=== PATIENT | female | born 1940 | race Caucasian/White ===

== ENCOUNTER 2016-09-01 10:41 | Inpatient (IN) | payer MEDICARE, BC ==
[~2016-09-01] VITALS: Ht 167.6 cm; Wt 69.5 kg
[~2016-09-01 10:41] MED LIST: ACET325C PO; ALPR0.5T6 PO; AMLO5TAB2 PO; ASPI325T70 PO; ASPI81TA2 PO; BUSP15TA PO; CARV6.252 PO; CYCL10TA2 PO; DOXY100C2 PO; DULO30CA43 PO; FLUO40CA2 PO; FOLI1TAB16 PO; FURO-68 PO; GABA-586 PO; HYDR-2762 PO; LEVO50TA5 PO; LISI40TA PO; LORA0.5T PO; LORA2ORA7 PO; MAGN2400 PO; MAGN400O4 PO; METF500T4 PO; MIRT15TA PO; MULT-658 PO; MULT9LIQ5 PO; NABU750T PO; NEOM28OI4 TP; OMEP40CA5 PO; OXYC-244 PO; OXYC10TA32 PO; OXYC1TAB7 PO; OXYC5CAP3 PO; PANT40TA5 PO; PERP1TAB3 PO; POLY17PO5 PO; POTA20TA12 PO; QUET100T PO; QUET50TA PO; SENN8.6T3 PO; SIMV80TA3 PO; TRAZ50TA15 PO; TRIA1TAB3 PO; [UNRECOGNIZED DRUG - CODE] PO; [UNRECOGNIZED DRUG - CODE] PO; [UNRECOGNIZED DRUG - CODE] TP; [UNRECOGNIZED DRUG - OTHER]; doxycycline; omeprazole
[2016-09-01] MEDS ORDERED: FENTANYL PF 100 MCG/2 ML VIAL. IV PRN ×2 (11:15→14:15)
[2016-09-01 11:47] LABS: BASO % 1 % (0-3); EOS % 2 % (0-3); HEMATOCRIT 31.7 % (36.0-47.0); HEMOGLOBIN 10.6 g/dL (12.0-15.5); LYMPH # 1.6 x10^3/uL (1.0-4.8); LYMPH % 23 % (24-48); MEAN CORPUSCULAR HEMOGLOBIN 31 pg (25-35); MEAN CORPUSCULAR HGB CONC 33 g/dL (31-37); MEAN CORPUSCULAR VOLUME 93 fL (79-100); MONO % 11 % (0-9); NEUT % 64 % (31-73); PLATELET COUNT 266 x10^3/uL (140-400); RED BLOOD COUNT 3.41 x10^6/uL (3.50-5.40); RED CELL DISTRIBUTION WIDTH 14.7 % (11.5-14.5); WHITE BLOOD COUNT 6.9 x10^3/uL (4.0-11.0)
[2016-09-01 11:48] LABS: CALCIUM 8.8 mg/dL (8.5-10.1); CREATININE 0.8 mg/dL (0.6-1.0); GFR 69.9; POTASSIUM 4.1 mmol/L (3.5-5.1)
[2016-09-01 12:06] LABS: BILIRUBIN,URINE NEGATIVE (NEG); GLUCOSE,URINE NEGATIVE (NEG); NITRITE,URINE NEGATIVE (NEG); PH,URINE 7.5; PROTEIN,URINE NEGATIVE (NEG-TRACE); UROBILINOGEN,URINE 0.2 mg/dL (0.2 mg/dL)
[2016-09-01 12:16] LABS: BACTERIA,URINE 0 /HPF (0-FEW); RBC,URINE 0 /HPF (0-2); SQUAMOUS EPITHELIAL CELL,UR OCC /LPF; WBC,URINE 0 /HPF (0-4)
--- NOTE | 2016-09-01 13:38 | RAD ---
AP view of the pelvis History: Bilateral hip pain. Cannot walk. Findings: Fusion of the left side lower lumbar spine is severe levoscoliosis. Surgical hardware is seen within the left iliac bone. Old healed fracture of the lateral aspect of the left iliac bone is seen. No acute fracture is evident. No diastases or osteolytic process is seen. IMPRESSION: No acute fracture.
[2016-09-01] MEDS ORDERED: ACETAMINOPHEN 325 MG TABLET. PO PRN ×2 (14:15→15:45)
[2016-09-01] MEDS ORDERED: ONDANSETRON PF 4 MG/2 ML VIAL. IV PRN ×2 (14:15→15:30)
--- NOTE | 2016-09-01 14:50 | ACF ---
Admission Forms Criteria URINARY COMPLICATIONS Clinical Indications for Inpatient Care (Place 'X' for any and all applicable criteria): Ongoing inpatient care may be indicated for urinary complications with ANY ONE of the following: [ ]I. Urinary tract infection requiring inpatient care as indicated by ANY ONE of the following(8)(19)(20): [ ]a) Severe symptoms (eg, high fever, severe pain) [ ]b) Vomiting or dehydration requiring ongoing inpatient care [ ]c) IV antibiotic needs that cannot be managed at lower level of care [ ]d) Hemodynamic instability [ ]e) Obstruction of collecting system by stone or tumor [X]II. Urinary retention requiring drainage or surgery (3)(4)(5)(17)(18) [ ]III. Renal failure (Use Renal Failure Criteria for further information.) [ ]IV. Oliguria(30) [ ]V. Post obstructive diuresis requiring close monitoring of urine output and intravenous compensation for excessive fluid losses(33) Extended stay beyond goal length of stay for primary condition may be needed until ALL of the following are present(3)(4)(5)(8): [ ]a) Renal function (creatinine) at baseline, or daily decreases in creatinine consistent with renal function return [ ]b) Voiding adequately or with urinary catheter or percutaneous suprapubic tube and management regimen in place that is performable at lower level of care. [ ]c) Urine output adequate [ ]d) Fever absent or resolving [ ]e) Infection absent or treatable at next level of care The original [employer] content created by [employer] has been revised. The portions of the content which have been revised are identified through the use of italic text or in bold, and [facility] has neither reviewed nor approved the modified material. All other unmodified content is copyright [employer] Please see references footnoted in the original [facility] edition 2016 Admission Criteria Met?: Yes BARNEY HARRIS Sep 01, 2016 14:50
--- NOTE | 2016-09-01 15:05 | PHYS DOC ---
Past Medical History Past Medical History: Anxiety, Bipolar, Constipation, Depression, Diabetes- Type II, GERD, High Cholesterol, Hypertension, Hypothyroid, Stroke, Other Additional Past Medical Histor: CHRONIC BACK PAIN, PYSCH HX Past Surgical History: Lumbar Laminectomy, Other Additional Past Surgical Histo: LEFT SHOULDER REPAIR, L hip repair-plate and screws Alcohol Use: None Drug Use: None Adult General Chief Complaint Chief Complaint: PAIN CONTROL HPI HPI Patient is a 76 year old female who presents with chronic pain & urinary retention. Patient is a poor historian, very difficult to obtain information regarding her complaints. She states that she has chronic left shoulder pain & bilateral hip pain, with previous surgeries for fractures to LUE & LLE. Denies recent fall or trauma, has taken 1 percocet today at her care home & states it did not help at all. She also states she has suprapubic abdominal pain with inability to urinate, unsure when she last urinated. Denies history of urinary retention. States she took an unknown antibiotic last week for UTI. She denies fevers/chills, nausea/vomiting, flank pain. She lives at [facility] & her PCP is Dr. Smallwood. Review of Systems Review of Systems Constitutional: Denies fever or chills Eyes: Denies change in visual acuity HENT: Denies nasal congestion or sore throat Respiratory: Denies cough or shortness of breath Cardiovascular: Denies chest pain or edema GI: Reports suprapubic abdominal pain, denies nausea, vomiting, bloody stools or diarrhea : Denies dysuria or hematuria, reports urinary retention Musculoskeletal: Reports joint pain Integument: Denies rash or skin lesions Neurologic: Denies headache, focal weakness or sensory changes Current Medications Current Medications Current Medications Medications (Trade) Dose Ordered Sig/Anne Start Time Stop Time Status Last Admin Dose Admin Fentanyl Citrate (Fentanyl 2ml Vial) 25 mcg PRN Q15MIN PRN 09/01/16 11:15 09/01/16 14:15 DC 09/01/16 11:49 25 MCG Allergies Allergies Allergies Coded Allergies Type Severity Reaction Last Updated Verified No Known Drug Allergies 04/29/14 No Physical Exam Physical Exam Constitutional: Well developed, well nourished, no acute distress, non-toxic appearance. HENT: Normocephalic, atraumatic, bilateral external ears normal, oropharynx moist, nose normal. Eyes: conjunctiva normal, no discharge. Neck: supple, no stridor. Cardiovascular: RRR, no murmurs, no edema. Lungs & Thorax: LCTAB, no wheezing, no respiratory distress. Abdomen: soft, nontender, nondistended. : villalobos catheter already placed by RN at time of my exam with > 500 mL output of clear yellow urine. Skin: Warm, dry, no erythema, no rash. Back: No CVA tenderness. Extremities: left shoulder no swelling/deformity, no focal tenderness with palpation, no elbow tenderness, radial pulse 2+, radial/median/ulnar nerve sensory & motor function intact, limited ROM secondary to pain at the shoulder. no hip swelling/deformity, mild generalized tenderness to bilateral hips, no knee tenderness, limited ROM to bilateral hips secondary to pain, dp/pt 2+ bilaterally, sensation intact to feet. Neurologic: Alert and oriented X 3, no focal deficits noted. Psychologic: Affect normal, judgement normal, mood normal. Current Patient Data Vital Signs Vital Signs Date Time Temp Pulse Resp B/P Pulse Ox O2 Delivery O2 Flow Rate FiO2 09/01/16 12:28 54 16 92 09/01/16 10:49 97.8 105/51 Room Air 97.8 Lab Values Laboratory Tests Test 09/01/16 11:25 09/01/16 11:54 White Blood Count 6.9x10^3/uL (4.0-11.0) Red Blood Count 3.41x10^6/uL (3.50-5.40) L Hemoglobin 10.6g/dL (12.0-15.5) L Hematocrit 31.7% (36.0-47.0) L Mean Corpuscular Volume 93fL (79-100) Mean Corpuscular Hemoglobin 31pg (25-35) Mean Corpuscular Hemoglobin Concent 33g/dL (31-37) Red Cell Distribution Width 14.7% (11.5-14.5) H Platelet Count 266x10^3/uL (140-400) Neutrophils (%) (Auto) 64% (31-73) Lymphocytes (%) (Auto) 23% (24-48) L Monocytes (%) (Auto) 11% (0-9) H Eosinophils (%) (Auto) 2% (0-3) Basophils (%) (Auto) 1% (0-3) Neutrophils # (Auto) 4.4x10^3uL (1.8-7.7) Lymphocytes # (Auto) 1.6x10^3/uL (1.0-4.8) Monocytes # (Auto) 0.7x10^3/uL (0.0-1.1) Eosinophils # (Auto) 0.1x10^3/uL (0.0-0.7) Basophils # (Auto) 0.0x10^3/uL (0.0-0.2) Sodium Level 129mmol/L (136-145) L Potassium Level 4.1mmol/L (3.5-5.1) Chloride Level 98mmol/L (98-107) Carbon Dioxide Level 26mmol/L (21-32) Anion Gap 5 (6-14) L Blood Urea Nitrogen 10mg/dL (7-20) Creatinine 0.8mg/dL (0.6-1.0) Estimated GFR (Cockcroft-Gault) 69.9 Glucose Level 111mg/dL (70-99) H Calcium Level 8.8mg/dL (8.5-10.1) Urine Collection Type Unknown Urine Color Yellow Urine Clarity Clear Urine pH 7.5 Urine Specific [place] <=1.005 Urine Protein Negativemg/dL (NEG-TRACE) Urine Glucose (UA) Negativemg/dL (NEG) Urine Ketones (Stick) Negativemg/dL (NEG) Urine Blood Negative (NEG) Urine Nitrite Negative (NEG) Urine Bilirubin Negative (NEG) Urine Urobilinogen Dipstick 0.2mg/dL (0.2 mg/dL) Urine Leukocyte Esterase Negative (NEG) Urine RBC 0/HPF (0-2) Urine WBC 0/HPF (0-4) Urine Squamous Epithelial Cells Occ/LPF Urine Bacteria 0/HPF (0-FEW) Laboratory Tests 09/01/16 11:25 Laboratory Tests 09/01/16 11:25 EKG EKG [] Radiology/Procedures Radiology/Procedures PROCEDURE: PELVIS AP view of the pelvis History: Bilateral hip pain. Cannot walk. Findings: Fusion of the left side lower lumbar spine is severe levoscoliosis. Surgical hardware is seen within the left iliac bone. Old healed fracture of the lateral aspect of the left iliac bone is seen. No acute fracture is evident. No diastases or osteolytic process is seen. IMPRESSION: No acute fracture. DICTATED and SIGNED BY: CLAIRE CAMARILLO MD DATE: 09/01/16 0019[] Course & Med Decision Making Course & Med Decision Making Pertinent Labs and Imaging studies reviewed. (See chart for details) Patient presents with acute urinary retention. RN placed a Villalobos catheter with greater than 500 mL of yellow urine output. Patient will much better and had no focal abdominal pain at time of my exam. UA is clear, no evidence of infection at this time. She received multiple doses of IV pain medication for pain, not significantly relieved. Primarily complaining of hip pain bilaterally with no evidence of fracture on x-ray. Agreed to admit to inpatient status for rehabilitation consult. Patient agrees with plan of care. Discussed with Dr. Palmer who agrees to admit to inpatient status, rehabilitation consult to Dr. Saravia , urology consult to Dr. Riggins. patient admitted in stable condition. [] Dragon Disclaimer Dragon Disclaimer This electronic medical record was generated, in whole or in part, using a voice recognition dictation system. Departure Departure Impression: Primary Impression: Lower extremity pain Additional Impressions: Acute urinary retention Anemia Disposition: ADMITTED INPATIENT Admitting Physician: Brian Palmer Condition: STABLE Problem Qualifiers EUGENIO GOMEZ MD Sep 01, 2016 15:05
[2016-09-01 15:15] VITALS: BP 130/48
--- NOTE | 2016-09-01 15:25 | PDOC1 ---
History and Physical Date of Admission Date of Admission 09/01/16 Identification/Chief Complaint Chief Complaint UTI? hip pain Problems: Source Source: Chart review, Patient History of Present Illness History of Present Illness HPI HPI Patient is a 76 year old female who presents with chronic pain & urinary retention. pt is a poor historian. She said SNF sent her here since she has UTI, but denies dysuria, frequency, urgency. She said SNF tried to get urine sample, but failed. She also has chronic bl hip pain and back pain, post back sx 4 times in the past. saying took percocet q6h prn in SNF and not help. She also states she has suprapubic abdominal pain with inability to urinate, unsure when she last urinated. States she took an unknown antibiotic last week for UTI. She denies fevers/chills, nausea/vomiting, flank pain. She lives at [facility] & her PCP is Dr. Smallwood. h/o CVA, with mild left side weakness, use a walker in SNF. Past Medical History Cardiovascular: HTN, Hyperlipidemia CENTRAL NERVOUS SYSTEM: CVA Endocrine: Diabetes, Hypothyroidism Past Surgical History Past Surgical History: Other Family History Family History: No Significant, Hypertension Social History Smoke: No ALCOHOL: none Drugs: Ecstasy Current Problem List Problem List Problems Medical Problems: (1) Lower extremity pain Status: Acute Current Medications Current Medications Current Medications Medications (Trade) Dose Ordered Sig/Anne Start Time Stop Time Status Last Admin Dose Admin Acetaminophen (Tylenol) 650 mg PRN Q4HRS PRN 09/01/16 14:15 09/02/16 14:14 Fentanyl Citrate (Fentanyl 2ml Vial) 50 mcg PRN Q1HR PRN 09/01/16 14:15 09/02/16 14:14 Ondansetron HCl (Zofran) 4 mg PRN Q8HRS PRN 09/01/16 14:15 09/02/16 14:14 Allergies Allergies Allergies Coded Allergies Type Severity Reaction Last Updated Verified No Known Drug Allergies 04/29/14 No ROS Review of System CONSTITUTIONAL: No fever or chills EYES: No recent changes SKIN: No rash or itching CARDIOVASCULAR: No chest pain, syncope, palpitations, or edema RESPIRATORY: No SOB or cough GASTROINTESTINAL: No nausea, vomiting or abdominal pain NEUROLOGICAL: No headaches or weakness ENDOCRINE: No cold or heat intolerance GENITOURINARY: No urgency or frequency of urination MUSCULOSKELETAL: No back pain or joint pain LYMPHATICS: No enlarged lymph nodes PSYCHIATRIC: No anxiety or depression Physical Exam Physical Exam GEN.: No apparent distress. Alert and oriented. HEENT: Head is normocephalic, atraumatic NECK: Supple. LUNGS: Clear to auscultation. HEART: RRR, S1, S2 present. Peripheral pulses intact ABDOMEN: Soft, nontender. Positive bowel sounds. EXTREMITIES: Without any cyanosis. NEUROLOGIC: Normal speech, normal tone PSYCHIATRIC: Normal affect, normal mood. SKIN: No ulcerations Vitals Vitals Vital Signs Date Time Temp Pulse Resp B/P Pulse Ox O2 Delivery O2 Flow Rate FiO2 09/01/16 13:28 64 16 94 09/01/16 10:49 97.8 51/41 Room Air 97.8 Labs Labs Laboratory Tests Test 09/01/16 11:25 09/01/16 11:54 White Blood Count 6.9x10^3/uL (4.0-11.0) Red Blood Count 3.41x10^6/uL (3.50-5.40) Hemoglobin 10.6g/dL (12.0-15.5) Hematocrit 31.7% (36.0-47.0) Mean Corpuscular Volume 93fL (79-100) Mean Corpuscular Hemoglobin 31pg (25-35) Mean Corpuscular Hemoglobin Concent 33g/dL (31-37) Red Cell Distribution Width 14.7% (11.5-14.5) Platelet Count 266x10^3/uL (140-400) Neutrophils (%) (Auto) 64% (31-73) Lymphocytes (%) (Auto) 23% (24-48) Monocytes (%) (Auto) 11% (0-9) Eosinophils (%) (Auto) 2% (0-3) Basophils (%) (Auto) 1% (0-3) Neutrophils # (Auto) 4.4x10^3uL (1.8-7.7) Lymphocytes # (Auto) 1.6x10^3/uL (1.0-4.8) Monocytes # (Auto) 0.7x10^3/uL (0.0-1.1) Eosinophils # (Auto) 0.1x10^3/uL (0.0-0.7) Basophils # (Auto) 0.0x10^3/uL (0.0-0.2) Sodium Level 129mmol/L (136-145) Potassium Level 4.1mmol/L (3.5-5.1) Chloride Level 98mmol/L (98-107) Carbon Dioxide Level 26mmol/L (21-32) Anion Gap 5 (6-14) Blood Urea Nitrogen 10mg/dL (7-20) Creatinine 0.8mg/dL (0.6-1.0) Estimated GFR (Cockcroft-Gault) 69.9 Glucose Level 111mg/dL (70-99) Calcium Level 8.8mg/dL (8.5-10.1) Urine Collection Type Unknown Urine Color Yellow Urine Clarity Clear Urine pH 7.5 Urine Specific [place] <=1.005 Urine Protein Negativemg/dL (NEG-TRACE) Urine Glucose (UA) Negativemg/dL (NEG) Urine Ketones (Stick) Negativemg/dL (NEG) Urine Blood Negative (NEG) Urine Nitrite Negative (NEG) Urine Bilirubin Negative (NEG) Urine Urobilinogen Dipstick 0.2mg/dL (0.2 mg/dL) Urine Leukocyte Esterase Negative (NEG) Urine RBC 0/HPF (0-2) Urine WBC 0/HPF (0-4) Urine Squamous Epithelial Cells Occ/LPF Urine Bacteria 0/HPF (0-FEW) Laboratory Tests Test 09/01/16 11:25 09/01/16 11:54 White Blood Count 6.9x10^3/uL (4.0-11.0) Red Blood Count 3.41x10^6/uL (3.50-5.40) Hemoglobin 10.6g/dL (12.0-15.5) Hematocrit 31.7% (36.0-47.0) Mean Corpuscular Volume 93fL (79-100) Mean Corpuscular Hemoglobin 31pg (25-35) Mean Corpuscular Hemoglobin Concent 33g/dL (31-37) Red Cell Distribution Width 14.7% (11.5-14.5) Platelet Count 266x10^3/uL (140-400) Neutrophils (%) (Auto) 64% (31-73) Lymphocytes (%) (Auto) 23% (24-48) Monocytes (%) (Auto) 11% (0-9) Eosinophils (%) (Auto) 2% (0-3) Basophils (%) (Auto) 1% (0-3) Neutrophils # (Auto) 4.4x10^3uL (1.8-7.7) Lymphocytes # (Auto) 1.6x10^3/uL (1.0-4.8) Monocytes # (Auto) 0.7x10^3/uL (0.0-1.1) Eosinophils # (Auto) 0.1x10^3/uL (0.0-0.7) Basophils # (Auto) 0.0x10^3/uL (0.0-0.2) Sodium Level 129mmol/L (136-145) Potassium Level 4.1mmol/L (3.5-5.1) Chloride Level 98mmol/L (98-107) Carbon Dioxide Level 26mmol/L (21-32) Anion Gap 5 (6-14) Blood Urea Nitrogen 10mg/dL (7-20) Creatinine 0.8mg/dL (0.6-1.0) Estimated GFR (Cockcroft-Gault) 69.9 Glucose Level 111mg/dL (70-99) Calcium Level 8.8mg/dL (8.5-10.1) Urine Collection Type Unknown Urine Color Yellow Urine Clarity Clear Urine pH 7.5 Urine Specific [place] <=1.005 Urine Protein Negativemg/dL (NEG-TRACE) Urine Glucose (UA) Negativemg/dL (NEG) Urine Ketones (Stick) Negativemg/dL (NEG) Urine Blood Negative (NEG) Urine Nitrite Negative (NEG) Urine Bilirubin Negative (NEG) Urine Urobilinogen Dipstick 0.2mg/dL (0.2 mg/dL) Urine Leukocyte Esterase Negative (NEG) Urine RBC 0/HPF (0-2) Urine WBC 0/HPF (0-4) Urine Squamous Epithelial Cells Occ/LPF Urine Bacteria 0/HPF (0-FEW) VTE Prophylaxis Ordered VTE Prophylaxis Devices: Yes VTE Pharmacological Prophylaxi: Yes Assessment/Plan Assessment/Plan 1. severe chronic back pain, bl hip pain 2h/o back sx 3. urinary urention 4. HTN 5. bipolar disorder 6. dm2, no meds 7. gerd 8. hld 9. h/o storke with mild left side weakness 10. from snf 11. hyponatremia 12. chronic normacytic anemia plan: 1. uro, dr. Kwon consult 2. MRI LUMBAR 3. cont home meds, hold amlodipine 4. ivf 5. villaolbos for now 6. cont pain control 7. dvt ppx ptot ADDY PAVON MD Sep 01, 2016 15:25
[2016-09-01] MEDS ORDERED: MAGNESIUM HYDROXIDE 2,400 MG/30 ML ORAL.SUSP. PO PRN ×2 (15:30→15:45)
[2016-09-01] MEDS ORDERED: LORAZEPAM INTENSOL 2 MG/ML ORAL.CONC. PO PRN (15:30)
[2016-09-01] MEDS ORDERED: IV NORMAL SALINE 1000ML BAG 1,000 ML IV ONE ×2 (15:30→21:00)
[2016-09-01] MEDS ORDERED: hydrALAZINE 20 MG/ML VIAL. IVP PRN (15:30)
[2016-09-01] MEDS ORDERED: ALPRAZOLAM 0.5 MG TABLET. PO PRN (15:30)
[2016-09-01] MEDS ORDERED: BISACODYL 5 MG TABLET.DR. PO PRN (15:30)
[2016-09-01] MEDS ORDERED: METHYL SALICYLATE/MENTHOL TOPICAL OINTMENT 29GM TUBE. TP PRN ×2 (16:00→16:06)
[2016-09-01] MEDS: QUEtiapine 25 MG TABLET. PO SCH (17:20)
[2016-09-01] MEDS: GABAPENTIN 300 MG CAPSULE. PO SCH ×2 (17:20→21:04)
[2016-09-01] MEDS: OXYCODONE/APAP 5/325 TABLET. PO PRN ×2 (17:20→23:56)
[2016-09-01] MEDS: CARVEDILOL 6.25 MG TABLET. PO SCH (17:20)
[2016-09-01 19:00] VITALS: BP 96/35
[2016-09-01] MEDS ORDERED: traZODone 50 MG TABLET. PO SCH (21:00)
[2016-09-01] MEDS: VANCOMYCIN 250 MG/5 ML ORAL SOLUTION. PO SCH ×2 (21:01→23:52)
[2016-09-01] MEDS: SENNOSIDES 8.6 MG TABLET PO SCH (21:02)
[2016-09-01] MEDS: MIRTAZAPINE 15 MG TABLET PO SCH (21:03)
[2016-09-01] MEDS: OXYCODONE ER 10 MG TAB.ER.12H. PO SCH (21:03)
[2016-09-01] MEDS: busPIRone 5 MG TABLET. PO SCH (21:03)
[2016-09-01] MEDS: QUEtiapine 100 MG TABLET. PO SCH (21:10)
[2016-09-01 23:01] VITALS: BP 88/37
[2016-09-01] MEDS: DULOXETINE HCL 30 MG CAPSULE.DR. PO SCH (23:48)
[2016-09-02] MEDS ORDERED: IV NORMAL SALINE 1000ML BAG 1,000 ML IV SCH (02:00)
[2016-09-02 03:00] VITALS: BP 135/52
[2016-09-02 05:33] LABS: BASO # 0.1 x10^3/uL (0.0-0.2); BASO % 1 % (0-3); EOS % 2 % (0-3); HEMATOCRIT 34.3 % (36.0-47.0); HEMOGLOBIN 11.1 g/dL (12.0-15.5); LYMPH # 1.9 x10^3/uL (1.0-4.8); LYMPH % 29 % (24-48); MEAN CORPUSCULAR HEMOGLOBIN 31 pg (25-35); MEAN CORPUSCULAR HGB CONC 32 g/dL (31-37); MEAN CORPUSCULAR VOLUME 94 fL (79-100); MONO % 13 % (0-9); NEUT % 56 % (31-73); PLATELET COUNT 270 x10^3/uL (140-400); RED BLOOD COUNT 3.63 x10^6/uL (3.50-5.40); RED CELL DISTRIBUTION WIDTH 14.8 % (11.5-14.5); WHITE BLOOD COUNT 6.5 x10^3/uL (4.0-11.0)
[2016-09-02 06:03] LABS: CALCIUM 8.6 mg/dL (8.5-10.1); CREATININE 1.1 mg/dL (0.6-1.0); GFR 48.4
[2016-09-02] MEDS: PANTOPRAZOLE 40 MG TABLET.DR. PO SCH (06:38)
[2016-09-02] MEDS: LEVOTHYROXINE 75 MCG TABLET PO SCH (06:38)
[2016-09-02 07:00] VITALS: BP 118/44
[2016-09-02] MEDS ORDERED: AMLODIPINE BESYLATE 5 MG TABLET. PO SCH (09:00)
[2016-09-02] MEDS ORDERED: LISINOPRIL 10 MG TABLET PO SCH (09:00)
[2016-09-02] MEDS: SENNOSIDES 8.6 MG TABLET PO SCH ×2 (09:00→20:39)
[2016-09-02] MEDS ORDERED: FOLIC ACID 1 MG TABLET. PO SCH (09:00)
[2016-09-02] MEDS: GABAPENTIN 300 MG CAPSULE. PO SCH ×3 (09:05→20:40)
[2016-09-02] MEDS: POLYETHYLENE GLYCOL 3350 17 GM PACKET. PO SCH (09:05)
[2016-09-02] MEDS: MULTIVITAMIN with MINERAL TABLET. PO SCH (09:07)
[2016-09-02] MEDS: QUEtiapine 25 MG TABLET. PO SCH ×3 (09:07→17:36)
[2016-09-02] MEDS: busPIRone 5 MG TABLET. PO SCH ×2 (09:07→20:39)
[2016-09-02] MEDS: ASPIRIN CHEWABLE 81 MG TABLET. PO SCH (09:07)
[2016-09-02] MEDS: CARVEDILOL 6.25 MG TABLET. PO SCH ×2 (09:08→17:37)
[2016-09-02] MEDS: OXYCODONE ER 10 MG TAB.ER.12H. PO SCH ×2 (09:08→20:40)
[2016-09-02 10:54] VITALS: BP 122/52
[2016-09-02] MEDS: IV NORMAL SALINE 1000ML BAG 1,000 ML IV SCH ×2 (10:59→20:42)
[2016-09-02] MEDS: OXYCODONE/APAP 5/325 TABLET. PO PRN ×2 (11:03→19:29)
--- NOTE | 2016-09-02 11:51 | PDOC ---
PROGRESS NOTES Chief Complaint Chief Complaint 1. severe chronic back pain, bl hip pain 2 h/o back sx 3. urinary retention 4. HTN 5. bipolar disorder 6. dm2, no meds 7. gerd 8. hld 9. h/o storke with mild left side weakness 10. from snf 11. hyponatremia 12. chronic normacytic anemia plan: 1. uro, dr. Kwon consult pending 2. MRI LUMBAR pending 3. cont home meds, hold amlodipine 4. ivf till tmr. dc lisinopril. only on coreg for now. BP ok for now 5. villalobos for now 6. cont pain control 7. dvt ppx ptot History of Present Illness History of Present Illness LOw bp OVERnight pain better with meds on villalobos Vitals Vitals Vital Signs Date Time Temp Pulse Resp B/P Pulse Ox O2 Delivery O2 Flow Rate FiO2 09/02/16 11:03 Room Air 09/02/16 10:54 97.5 64 18 122/52 93 97.5 Physical Exam General: Alert, Oriented X3, Cooperative Heart: Regular rate, Normal S1, Normal S2 Lungs: Clear, Other Abdomen: Normal bowel sounds, Soft Extremities: No clubbing, No cyanosis Skin: No rashes Labs LABS Laboratory Tests Test 09/01/16 11:54 09/02/16 05:15 Urine Collection Type Unknown Urine Color Yellow Urine Clarity Clear Urine pH 7.5 Urine Specific [place] <=1.005 Urine Protein Negativemg/dL (NEG-TRACE) Urine Glucose (UA) Negativemg/dL (NEG) Urine Ketones (Stick) Negativemg/dL (NEG) Urine Blood Negative (NEG) Urine Nitrite Negative (NEG) Urine Bilirubin Negative (NEG) Urine Urobilinogen Dipstick 0.2mg/dL (0.2 mg/dL) Urine Leukocyte Esterase Negative (NEG) Urine RBC 0/HPF (0-2) Urine WBC 0/HPF (0-4) Urine Squamous Epithelial Cells Occ/LPF Urine Bacteria 0/HPF (0-FEW) White Blood Count 6.5x10^3/uL (4.0-11.0) Red Blood Count 3.63x10^6/uL (3.50-5.40) Hemoglobin 11.1g/dL (12.0-15.5) Hematocrit 34.3% (36.0-47.0) Mean Corpuscular Volume 94fL (79-100) Mean Corpuscular Hemoglobin 31pg (25-35) Mean Corpuscular Hemoglobin Concent 32g/dL (31-37) Red Cell Distribution Width 14.8% (11.5-14.5) Platelet Count 270x10^3/uL (140-400) Neutrophils (%) (Auto) 56% (31-73) Lymphocytes (%) (Auto) 29% (24-48) Monocytes (%) (Auto) 13% (0-9) Eosinophils (%) (Auto) 2% (0-3) Basophils (%) (Auto) 1% (0-3) Neutrophils # (Auto) 3.6x10^3uL (1.8-7.7) Lymphocytes # (Auto) 1.9x10^3/uL (1.0-4.8) Monocytes # (Auto) 0.8x10^3/uL (0.0-1.1) Eosinophils # (Auto) 0.1x10^3/uL (0.0-0.7) Basophils # (Auto) 0.1x10^3/uL (0.0-0.2) Sodium Level 132mmol/L (136-145) Potassium Level 4.0mmol/L (3.5-5.1) Chloride Level 98mmol/L (98-107) Carbon Dioxide Level 26mmol/L (21-32) Anion Gap 8 (6-14) Blood Urea Nitrogen 14mg/dL (7-20) Creatinine 1.1mg/dL (0.6-1.0) Estimated GFR (Cockcroft-Gault) 48.4 Glucose Level 99mg/dL (70-99) Calcium Level 8.6mg/dL (8.5-10.1) Review of Systems Review of Systems no fever, chills, sob or chest pain Assessment and Plan Assessmemt and Plan Problems Medical Problems: (1) Acute urinary retention Status: Acute (2) Anemia Status: Acute (3) Lower extremity pain Status: Acute Problems: Comment Review of Relevant I have reviewed the following items camacho (where applicable) has been applied. Labs Laboratory Tests Test 09/01/16 11:25 09/01/16 11:54 09/02/16 05:15 White Blood Count 6.9x10^3/uL (4.0-11.0) 6.5x10^3/uL (4.0-11.0) Red Blood Count 3.41x10^6/uL (3.50-5.40) 3.63x10^6/uL (3.50-5.40) Hemoglobin 10.6g/dL (12.0-15.5) 11.1g/dL (12.0-15.5) Hematocrit 31.7% (36.0-47.0) 34.3% (36.0-47.0) Mean Corpuscular Volume 93fL (79-100) 94fL (79-100) Mean Corpuscular Hemoglobin 31pg (25-35) 31pg (25-35) Mean Corpuscular Hemoglobin Concent 33g/dL (31-37) 32g/dL (31-37) Red Cell Distribution Width 14.7% (11.5-14.5) 14.8% (11.5-14.5) Platelet Count 266x10^3/uL (140-400) 270x10^3/uL (140-400) Neutrophils (%) (Auto) 64% (31-73) 56% (31-73) Lymphocytes (%) (Auto) 23% (24-48) 29% (24-48) Monocytes (%) (Auto) 11% (0-9) 13% (0-9) Eosinophils (%) (Auto) 2% (0-3) 2% (0-3) Basophils (%) (Auto) 1% (0-3) 1% (0-3) Neutrophils # (Auto) 4.4x10^3uL (1.8-7.7) 3.6x10^3uL (1.8-7.7) Lymphocytes # (Auto) 1.6x10^3/uL (1.0-4.8) 1.9x10^3/uL (1.0-4.8) Monocytes # (Auto) 0.7x10^3/uL (0.0-1.1) 0.8x10^3/uL (0.0-1.1) Eosinophils # (Auto) 0.1x10^3/uL (0.0-0.7) 0.1x10^3/uL (0.0-0.7) Basophils # (Auto) 0.0x10^3/uL (0.0-0.2) 0.1x10^3/uL (0.0-0.2) Sodium Level 129mmol/L (136-145) 132mmol/L (136-145) Potassium Level 4.1mmol/L (3.5-5.1) 4.0mmol/L (3.5-5.1) Chloride Level 98mmol/L (98-107) 98mmol/L (98-107) Carbon Dioxide Level 26mmol/L (21-32) 26mmol/L (21-32) Anion Gap 5 (6-14) 8 (6-14) Blood Urea Nitrogen 10mg/dL (7-20) 14mg/dL (7-20) Creatinine 0.8mg/dL (0.6-1.0) 1.1mg/dL (0.6-1.0) Estimated GFR (Cockcroft-Gault) 69.9 48.4 Glucose Level 111mg/dL (70-99) 99mg/dL (70-99) Calcium Level 8.8mg/dL (8.5-10.1) 8.6mg/dL (8.5-10.1) Urine Collection Type Unknown Urine Color Yellow Urine Clarity Clear Urine pH 7.5 Urine Specific [place] <=1.005 Urine Protein Negativemg/dL (NEG-TRACE) Urine Glucose (UA) Negativemg/dL (NEG) Urine Ketones (Stick) Negativemg/dL (NEG) Urine Blood Negative (NEG) Urine Nitrite Negative (NEG) Urine Bilirubin Negative (NEG) Urine Urobilinogen Dipstick 0.2mg/dL (0.2 mg/dL) Urine Leukocyte Esterase Negative (NEG) Urine RBC 0/HPF (0-2) Urine WBC 0/HPF (0-4) Urine Squamous Epithelial Cells Occ/LPF Urine Bacteria 0/HPF (0-FEW) Laboratory Tests Test 09/01/16 11:54 09/02/16 05:15 Urine Collection Type Unknown Urine Color Yellow Urine Clarity Clear Urine pH 7.5 Urine Specific [place] <=1.005 Urine Protein Negativemg/dL (NEG-TRACE) Urine Glucose (UA) Negativemg/dL (NEG) Urine Ketones (Stick) Negativemg/dL (NEG) Urine Blood Negative (NEG) Urine Nitrite Negative (NEG) Urine Bilirubin Negative (NEG) Urine Urobilinogen Dipstick 0.2mg/dL (0.2 mg/dL) Urine Leukocyte Esterase Negative (NEG) Urine RBC 0/HPF (0-2) Urine WBC 0/HPF (0-4) Urine Squamous Epithelial Cells Occ/LPF Urine Bacteria 0/HPF (0-FEW) White Blood Count 6.5x10^3/uL (4.0-11.0) Red Blood Count 3.63x10^6/uL (3.50-5.40) Hemoglobin 11.1g/dL (12.0-15.5) Hematocrit 34.3% (36.0-47.0) Mean Corpuscular Volume 94fL (79-100) Mean Corpuscular Hemoglobin 31pg (25-35) Mean Corpuscular Hemoglobin Concent 32g/dL (31-37) Red Cell Distribution Width 14.8% (11.5-14.5) Platelet Count 270x10^3/uL (140-400) Neutrophils (%) (Auto) 56% (31-73) Lymphocytes (%) (Auto) 29% (24-48) Monocytes (%) (Auto) 13% (0-9) Eosinophils (%) (Auto) 2% (0-3) Basophils (%) (Auto) 1% (0-3) Neutrophils # (Auto) 3.6x10^3uL (1.8-7.7) Lymphocytes # (Auto) 1.9x10^3/uL (1.0-4.8) Monocytes # (Auto) 0.8x10^3/uL (0.0-1.1) Eosinophils # (Auto) 0.1x10^3/uL (0.0-0.7) Basophils # (Auto) 0.1x10^3/uL (0.0-0.2) Sodium Level 132mmol/L (136-145) Potassium Level 4.0mmol/L (3.5-5.1) Chloride Level 98mmol/L (98-107) Carbon Dioxide Level 26mmol/L (21-32) Anion Gap 8 (6-14) Blood Urea Nitrogen 14mg/dL (7-20) Creatinine 1.1mg/dL (0.6-1.0) Estimated GFR (Cockcroft-Gault) 48.4 Glucose Level 99mg/dL (70-99) Calcium Level 8.6mg/dL (8.5-10.1) Medications Current Medications Fentanyl Citrate (Fentanyl 2ml Vial) 25 mcg PRN Q15MIN PRN IV PAIN GREATER THAN 3/10 Last administered on 09/01/16 11:49; Start 09/01/16 at 11:15; Stop 09/01 at 14:15; Status DC Ondansetron HCl (Zofran) 4 mg PRN Q8HRS PRN IV NAUSEA/VOMITING; Start 09/01/16 at 14:15; Stop 09/02/16 at 14:14 Fentanyl Citrate (Fentanyl 2ml Vial) 50 mcg PRN Q1HR PRN IV PAIN; Start at 14:15; Stop 09/02/16 at 14:14 Acetaminophen (Tylenol) 650 mg PRN Q4HRS PRN PO FEVER; Start 09/01/16 at 14:15; Stop 09/02/16 at 14:14 Alprazolam (Xanax) 0.5 mg PRN Q8HRS PRN PO ANXIETY / AGITATION; Start 09/01/16 at 15:30 Amlodipine Besylate (Norvasc) 10 mg DAILY PO ; Start 09/02/16 at 09:00; Stop 09/02 at 09:00; Status DC Aspirin (Children'S Aspirin) 81 mg DAILY PO Last administered on 09/02/16 09:07 ; Start 09/02/16 at 09:00 Bisacodyl (Dulcolax Tab) 5 mg PRN DAILY PRN PO consti; Start 09/01/16 at 15:30 Carvedilol (Coreg) 12.5 mg BIDWMEALS PO Last administered on 09/02/16 09:08; Start 09/01/16 at 17:00; Stop 09/02/16 at 10:03; Status DC Duloxetine HCl (Cymbalta) 30 mg HS PO Last administered on 09/01/16 23:48; Start 09/01/16 at 22:00 Folic Acid (Folic Acid) 1 mg DAILY PO Last administered on 09/02/16 09:07; Start 09/02/16 at 09:00; Stop 09/02/16 at 10:03; Status DC Levothyroxine Sodium (Synthroid) 75 mcg DAILY07 PO Last administered on 06:38; Start 09/02/16 at 07:00 Lisinopril (Prinivil) 10 mg DAILY PO Last administered on 09/02/16 09:07; Start 09/02/16 at 09:00; Stop 09/02/16 at 10:03; Status DC Lorazepam (Ativan Intensol) 1 mg PRN Q6HRS PRN PO ANXIETY / AGITATION; Start at 15:30 Magnesium Hydroxide (Milk Of Magnesia) 1,200 mg PRN DAILY PRN PO CONSTIPATION; Start 09/01/16 at 15:30; Stop 09/01/16 at 16:05; Status DC Mirtazapine (Remeron) 15 mg QHS PO Last administered on 09/01/16 21:03; Start 09/01/16 at 21:00 Oxycodone HCl (Oxycontin) 10 mg BID PO Last administered on 09/02/16 09:08; Start 09/01/16 at 21:00 Oxycodone/ Acetaminophen (Percocet 5/325) 2 tab PRN Q6HRS PRN PO PAIN Last administered on 09/02/16 11:03; Start 09/01/16 at 15:30 Pantoprazole Sodium (Protonix) 40 mg DAILYAC PO Last administered on 09/02/16 06:38; Start 09/02/16 at 07:30 Polyethylene Glycol (miraLAX PACKET) 17 gm DAILY PO Last administered on 09:05; Start 09/02/16 at 09:00 Quetiapine Fumarate (SEROquel) 100 mg HS PO Last administered on 09/01/16 21:10 ; Start 09/01/16 at 21:00 Sennosides (Senna) 8.6 mg BID PO Last administered on 09/01/16 21:02; Start 09/01/16 at 21:00 Trazodone HCl (Desyrel) 50 mg QHS PO ; Start 09/01/16 at 21:00; Stop 09/02/16 at 10:03; Status DC Acetaminophen (Tylenol) 650 mg PRN Q8HRS PRN PO PAIN; Start 09/01/16 at 15:45 Buspirone HCl (Buspar) 15 mg BID PO Last administered on 09/02/16 09:07; Start 09/01/16 at 21:00 Gabapentin (Neurontin) 600 mg TID PO Last administered on 09/02/16 09:05; Start 09/01/16 at 15:45 Magnesium Hydroxide (Milk Of Magnesia) 800 mg PRN DAILY PRN PO CONSTIPATION; Start 09/01/16 at 15:45 Multi-Ingredient Ointment (Analgesic [place]) 1 lori PRN Q6HRS PRN TP PAIN; Start 09/01/16 at 16:00; Stop 09/01/16 at 16:06; Status DC Multivitamins (Thera M Plus) 1 tab DAILY PO Last administered on 09/02/16 09:07 ; Start 09/02/16 at 09:00 Quetiapine Fumarate (SEROquel) 50 mg TID@, PO Last administered on 09:07; Start 09/01/16 at 17:00 Ondansetron HCl (Zofran) 4 mg PRN Q6HRS PRN IV NAUSEA/VOMITING; Start 09/01/16 at 15:30 Hydralazine HCl 10 mg 10 mg PRN Q4HRS PRN IVP ELEVATED BP, SEE COMMENTS; Start 09/01/16 at 15:30 Sodium Chloride (Iv Sodium Chloride 0.9% 1000ml Bag) 1,000 ml @ 75 mls/hr 1X ONCE IV Last administered on 09/01/16 19:30; Start 09/01/16 at 15:30; Stop at 04:49; Status DC Multi-Ingredient Ointment (Analgesic [place]) 1 lori PRN Q6HRS PRN TP PAIN; Start 09/01/16 at 16:06 Vancomycin HCl 250 mg 250 mg [id number] PO Last administered on 09/01/16 23:52; Start 09/01/16 at 20:30; Stop 09/01/16 at 21:01; Status DC Sodium Chloride 1,000 ml @ 1,000 mls/hr 1X ONCE IV Last administered on 21:01; Start 09/01/16 at 21:00; Stop 09/01/16 at 21:59; Status DC Sodium Chloride (Iv Sodium Chloride 0.9% 1000ml Bag) 1,000 ml @ 100 mls/hr Q10H IV Last administered on 09/02/16 02:05; Start 09/02/16 at 02:00; Stop at 10:03; Status DC Carvedilol 6.25 mg 6.25 mg BIDWMEALS PO ; Start 09/02/16 at 17:00 Sodium Chloride (Iv Sodium Chloride 0.9% 1000ml Bag) 1,000 ml @ 100 mls/hr Q10H IV Last administered on 09/02/16 10:59; Start 09/02/16 at 10:02; Stop 09/03 at 08:00 Active Scripts Active Antibiotic Ointment (Neomy Sulf/Bacitrac Zn/Poly) 28 Gm Oint...g. 28 Gm TP BID Reported Alprazolam 0.5 Mg Tablet 0.5 Mg PO PRN Q8HRS PRN Acetaminophen 325 Mg Capsule 325 Mg PO PRN Q8HRS PRN Trazodone Hcl 50 Mg Tablet 1 Tab PO QHS Senna (Sennosides) 8.6 Mg Tablet 8.6 Mg PO BID Remeron (Mirtazapine) 15 Mg Tablet 1 Tab PO QHS Quetiapine Fumarate 50 Mg Tablet 50 Mg PO TID Quetiapine Fumarate 100 Mg Tablet 100 Mg PO HS Oxycontin (Oxycodone HCl) 10 Mg Tab.er.12h 10 Mg PO BID Oxycodone-Acetaminophen 5-325 (Oxycodone Hcl/Acetaminophen) 1 Each Tablet 2 Tab PO PRN Q6HRS PRN Miralax (Polyethylene Glycol 3350) 17 Gm Powd.pack 1 Packet PO DAILY Milk Of Magnesia (Magnesium Hydroxide) 400 Mg/5 Ml Oral.susp 15 Ml PO PRN DAILY PRN Milk Of Magnesia (Magnesium Hydroxide) 2,400 Mg/10 Ml Oral.susp 10 Ml PO PRN DAILY PRN Neuro Max (Methyl Salicylate) 85 Gm Gel..gram. 85 Gm TP PRN Q6HRS PRN Lorazepam Intensol (Lorazepam) 2 Mg/1 Ml Oral.conc 1 Mg PO PRN Q6HRS PRN Folic Acid 1 Mg Tablet 1 Mg PO DAILY Duloxetine Hcl 30 Mg Capsule.dr 30 Mg PO DAILY Buspirone Hcl 15 Mg Tablet 1 Tab PO BID Women's Gentle Laxative (Bisacodyl) 5 Mg Tablet. 5 Mg PO PRN DAILY PRN Neurontin (Gabapentin) 300 Mg Capsule 2 Cap PO TID Antioxidant Vitamin (Multivitamin With Minerals) 1 Each Tablet 1 Each PO DAILY Pantoprazole Sodium 40 Mg Tablet.dr 1 Tab PO DAILY Aspirin 81 Mg Tab.chew 1 Tab PO DAILY Lisinopril 40 Mg Tablet 10 Mg PO DAILY Levothyroxine Sodium 50 Mcg Tablet 75 Mcg PO DAILY Carvedilol 6.25 Mg Tablet 12.5 Mg PO BID Amlodipine Besylate 5 Mg Tablet 10 Mg PO DAILY Vitals/I & O Vital Sign - Last 24 Hours 09/01/16 09/01/16 09/01/16 09/01/16 12:28 13:28 15:15 17:20 Temp 97.9 97.9 Pulse 54 64 66 66 Resp 16 16 16 B/P 130/48 130/48 Pulse Ox 92 94 98 O2 Delivery Room Air 09/01/16 09/01/16 09/01/16 09/01/16 17:20 19:00 21:03 23:01 Temp 98.1 98.1 98.1 98.1 Pulse 66 69 Resp 20 20 B/P 96/35 88/37 Pulse Ox 95 95 93 O2 Delivery Room Air Room Air Room Air Room Air 09/01/16 09/02/16 09/02/16 09/02/16 23:56 01:03 01:03 03:00 Temp 97.9 97.9 Pulse 78 Resp 20 B/P 135/52 Pulse Ox 93 93 O2 Delivery Room Air Room Air Room Air Room Air 09/02/16 09/02/16 09/02/16 09/02/16 07:00 08:00 09:07 09:08 Temp 97.3 97.3 Pulse 60 60 60 B/P 118/44 118/44 118/44 Pulse Ox 92 O2 Delivery Room Air Room Air 09/02/16 09/02/16 09/02/16 09:08 10:54 11:03 Temp 97.5 97.5 Pulse 64 Resp 18 B/P 122/52 Pulse Ox 93 O2 Delivery Room Air Room Air Room Air Intake and Output 09/01/16 09/01/16 09/02/16 15:00 23:00 07:00 Intake Total 360 ml 1800 ml Output Total 1500 ml 500 ml 1950 ml Balance -1500 ml -140 ml -150 ml ADDY PAVON MD Sep 02, 2016 11:51
--- NOTE | 2016-09-02 14:08 | RAD ---
MRI study of the lumbar spine without contrast Clinical indications: Increasing back pain and lower extremity pain for past 2 weeks. Fall. Patient had an MRI study performed at 2 weeks ago. This is not available for comparison. Comparison MRI study at this facility: December 16, 2015. Technique: Noncontrast MRI sequences of the lumbar spine were performed in the sagittal and axial planes. Findings: Scoliosis is seen. Again seen is a lumbar fusion at L2 and L3 assuming 5 lumbar type vertebrae. There is paramagnetic susceptibility artifact at these 2 levels which partially obscures these 2 levels. There is bone marrow edema involving T12 and L1with degenerative endplate signal changes and endplate spurring. This was seen previously although there is more fluid within the T12-L1 disc space. There is endplate sclerosis present at this level which was seen previously but no progressive endplate erosion is seen from the prior study. Therefore this does not appear to represent discitis. The conus medullaris ends at the T12 level which appears normal morphologically and is not compressed. There is mild diffuse disc bulge and endplate spurring at T10-11. This does not come in contact with the conus medullaris. At T12-L1, there is diffuse endplate spurring and disc protrusion which is worse on the right side. Mild facet arthropathy is seen. These findings combine to form a moderate to severe spinal canal stenosis worse on the right side. There is severe narrowing of the neural foramina bilaterally at this level. At L1-2, mild diffuse disc bulging and degenerative endplate spurring is seen. Mild facet arthropathy is seen. These findings combine to form a mild spinal canal stenosis. There is moderate narrowing of the neural foramina bilaterally at this level. At L2-3, there is moderate degenerative endplate spurring and mild diffuse disc bulging. This results in a mild to moderate spinal canal stenosis worse on the left side with narrowing of the upper left lateral recess. There is mild narrowing of the left neural foramen and moderate narrowing of the right neural foramen. At L3-4, mild retrolisthesis is seen. Mild degenerative endplate spurring and moderate diffuse disc bulging is evident. Mild facet arthropathy is seen. These findings combine to form a mild spinal canal stenosis. There is mild narrowing of the left neural foramen and moderate narrowing of the right neural foramen. There is a more prominent transverse spinal canal stenosis at this level related to the scoliosis. At L4-5, grade 1 anterolisthesis is seen. There is mild degenerative endplate spurring and diffuse disc bulging. There is moderate facet arthropathy and ligamentum flow hypertrophy. These findings combine to form a mild to moderate spinal canal stenosis slightly worse on the left side. There is mild narrowing of the right neural foramen and severe narrowing of the left neural foramen. At L5-S1, minimal grade 1 anterolisthesis is seen. Mild degenerative endplate spurring and diffuse disc bulging is seen. Mild facet nephropathy is seen. These findings combine to form a mild spinal canal stenosis. There is moderate narrowing of the right neural foramen and moderate narrowing of the left neural foramen. IMPRESSION: Scoliosis and degenerative lumbar spondylosis. L2-3 fusion. Findings as discussed above. See discussion above for each level. There has been no significant change from the prior study other than there is an increase in fluid within the T12-L1 disc space. However the endplates are not eroded to indicate discitis. There is chronic subchondral sclerosis and degenerative endplate marrow signal changes at this level. Most notable finding is moderate to severe spinal canal stenosis at this level. No new compression fracture.
[2016-09-02 15:00] VITALS: BP 132/60
[2016-09-02 19:00] VITALS: BP 103/36
[2016-09-02] MEDS: DULOXETINE HCL 30 MG CAPSULE.DR. PO SCH (20:39)
[2016-09-02] MEDS: QUEtiapine 100 MG TABLET. PO SCH (20:39)
[2016-09-02] MEDS: MIRTAZAPINE 15 MG TABLET PO SCH (20:40)
[2016-09-03 03:00] VITALS: BP 107/50
[2016-09-03] MEDS: LEVOTHYROXINE 75 MCG TABLET PO SCH (06:35)
[2016-09-03] MEDS: PANTOPRAZOLE 40 MG TABLET.DR. PO SCH (06:35)
[2016-09-03] MEDS: OXYCODONE/APAP 5/325 TABLET. PO PRN ×3 (06:35→18:37)
[2016-09-03 07:40] VITALS: BP 124/39
[2016-09-03] MEDS: IV NORMAL SALINE 1000ML BAG 1,000 ML IV SCH (08:00)
--- NOTE | 2016-09-03 08:40 | PDOC ---
Provider Note Provider Note Urology: Consult dictated. Thank-you, DEBBY ANDERSON DO Sep 03, 2016 08:40
[2016-09-03] MEDS: CARVEDILOL 6.25 MG TABLET. PO SCH ×2 (09:38→17:43)
[2016-09-03] MEDS: busPIRone 5 MG TABLET. PO SCH ×2 (09:38→21:03)
[2016-09-03] MEDS: POLYETHYLENE GLYCOL 3350 17 GM PACKET. PO SCH (09:39)
[2016-09-03] MEDS: GABAPENTIN 300 MG CAPSULE. PO SCH ×3 (09:39→21:04)
[2016-09-03] MEDS: ASPIRIN CHEWABLE 81 MG TABLET. PO SCH (09:39)
[2016-09-03] MEDS: OXYCODONE ER 10 MG TAB.ER.12H. PO SCH ×2 (09:40→21:04)
[2016-09-03] MEDS: SENNOSIDES 8.6 MG TABLET PO SCH ×2 (09:40→21:05)
[2016-09-03] MEDS: QUEtiapine 25 MG TABLET. PO SCH ×3 (09:41→17:43)
[2016-09-03] MEDS: MULTIVITAMIN with MINERAL TABLET. PO SCH (09:42)
[2016-09-03 10:42] VITALS: BP 126/42
--- NOTE | 2016-09-03 12:14 | PDOC ---
PROGRESS NOTES Chief Complaint Chief Complaint cc: Shoulder and hip pain with urinary retention -UTI -Incontinence -UT -Brain aneurysm -cardiac catheterization -hypercholesterolemia -peripheral neuropathy -CVA -Blood disorder -Neck pain -Oral surgery -Cataracts -Smoking -Anxiety -Depression -GERD -Hypertension -Hyperthyroidism -Hypothyroidism -Diabetes mellitus -Pneumonia -Arthritis -Left shoulder surgery -Joint replacement -Musculoskeletal trauma -Neck pain History of Present Illness History of Present Illness The patient was sitting upright in bed and was talkative. The villalobos catheter was in place for the patient's urinary retention and had drained 1400mL. The patient was discussed with nursing and Dr. Saravia. Vitals Vitals Vital Signs Date Time Temp Pulse Resp B/P Pulse Ox O2 Delivery O2 Flow Rate FiO2 09/03/16 10:42 96.8 70 19 126/42 94 Room Air 96.8 09/03/16 03:00 2.0 Physical Exam General: Alert, Oriented X3, Cooperative Heart: Regular rate, Normal S1, Normal S2 Lungs: Clear, Other (No chest retractions) Abdomen: Normal bowel sounds, Soft Extremities: No clubbing, No cyanosis Skin: No rashes, No breakdown Review of Systems Review of Systems The patient states she is still urinating more often than is typical for her. She does not have any suprapubic pain. She does report feeling nauseated today. Assessment and Plan Assessmemt and Plan Problems Medical Problems: (1) Acute urinary retention Status: Acute (2) Anemia Status: Acute (3) Lower extremity pain Status: Acute Assessment: Ms. Gordon is a 76 year old female that presented with shoulder and hip pain with urinary retention. -UTI -Incontinence -UT -Brain aneurysm -cardiac catheterization -hypercholesterolemia -peripheral neuropathy -CVA -Blood disorder -Neck pain -Oral surgery -Cataracts -Smoking -Anxiety -Depression -GERD -Hypertension -Hyperthyroidism -Hypothyroidism -Diabetes mellitus -Pneumonia -Arthritis -Left shoulder surgery -Joint replacement -Musculoskeletal trauma -Neck pain Plan: 1. MRI demonstrated spondylosis, scoliosis, and stenosis 2. Continue home medications 3. DVT prophylaxis 4. Continue pain management 5. Monitor blood pressure 6. PT/OT 7. Possible SNF tomorrow 8. Consultation from urology appreciated Problems: Comment Review of Relevant I have reviewed the following items camacho (where applicable) has been applied. Labs Laboratory Tests Test 09/01/16 19:40 4/9/17 05:15 Nasal Screen MRSA (PCR) Negative (Negative) White Blood Count 6.5x10^3/uL (4.0-11.0) Red Blood Count 3.63x10^6/uL (3.50-5.40) Hemoglobin 11.1g/dL (12.0-15.5) Hematocrit 34.3% (36.0-47.0) Mean Corpuscular Volume 94fL (79-100) Mean Corpuscular Hemoglobin 31pg (25-35) Mean Corpuscular Hemoglobin Concent 32g/dL (31-37) Red Cell Distribution Width 14.8% (11.5-14.5) Platelet Count 270x10^3/uL (140-400) Neutrophils (%) (Auto) 56% (31-73) Lymphocytes (%) (Auto) 29% (24-48) Monocytes (%) (Auto) 13% (0-9) Eosinophils (%) (Auto) 2% (0-3) Basophils (%) (Auto) 1% (0-3) Neutrophils # (Auto) 3.6x10^3uL (1.8-7.7) Lymphocytes # (Auto) 1.9x10^3/uL (1.0-4.8) Monocytes # (Auto) 0.8x10^3/uL (0.0-1.1) Eosinophils # (Auto) 0.1x10^3/uL (0.0-0.7) Basophils # (Auto) 0.1x10^3/uL (0.0-0.2) Sodium Level 132mmol/L (136-145) Potassium Level 4.0mmol/L (3.5-5.1) Chloride Level 98mmol/L (98-107) Carbon Dioxide Level 26mmol/L (21-32) Anion Gap 8 (6-14) Blood Urea Nitrogen 14mg/dL (7-20) Creatinine 1.1mg/dL (0.6-1.0) Estimated GFR (Cockcroft-Gault) 48.4 Glucose Level 99mg/dL (70-99) Calcium Level 8.6mg/dL (8.5-10.1) Medications Current Medications Fentanyl Citrate (Fentanyl 2ml Vial) 25 mcg PRN Q15MIN PRN IV PAIN GREATER THAN 3/10 Last administered on 09/01/16 11:49; Start 09/01/16 at 11:15; Stop 09/01 at 14:15; Status DC Ondansetron HCl (Zofran) 4 mg PRN Q8HRS PRN IV NAUSEA/VOMITING; Start 09/01/16 at 14:15; Stop 09/02/16 at 14:14; Status DC Fentanyl Citrate (Fentanyl 2ml Vial) 50 mcg PRN Q1HR PRN IV PAIN; Start at 14:15; Stop 09/02/16 at 14:14; Status DC Acetaminophen (Tylenol) 650 mg PRN Q4HRS PRN PO FEVER; Start 09/01/16 at 14:15; Stop 09/02/16 at 14:14; Status DC Alprazolam (Xanax) 0.5 mg PRN Q8HRS PRN PO ANXIETY / AGITATION; Start 09/01/16 at 15:30 Amlodipine Besylate (Norvasc) 10 mg DAILY PO ; Start 09/02/16 at 09:00; Stop 09/02 at 09:00; Status DC Aspirin (Children'S Aspirin) 81 mg DAILY PO Last administered on 09/03/16 09: 39; Start 09/02/16 at 09:00 Bisacodyl (Dulcolax Tab) 5 mg PRN DAILY PRN PO consti; Start 09/01/16 at 15:30 Carvedilol (Coreg) 12.5 mg BIDWMEALS PO Last administered on 09/02/16 09:08; Start 09/01/16 at 17:00; Stop 09/02/16 at 10:03; Status DC Duloxetine HCl (Cymbalta) 30 mg HS PO Last administered on 09/02/16 20:39; Start 09/01/16 at 22:00 Folic Acid (Folic Acid) 1 mg DAILY PO Last administered on 09/02/16 09:07; Start 09/02/16 at 09:00; Stop 09/02/16 at 10:03; Status DC Levothyroxine Sodium (Synthroid) 75 mcg DAILY07 PO Last administered on 06:35; Start 09/02/16 at 07:00 Lisinopril (Prinivil) 10 mg DAILY PO Last administered on 09/02/16 09:07; Start 09/02/16 at 09:00; Stop 09/02/16 at 10:03; Status DC Lorazepam (Ativan Intensol) 1 mg PRN Q6HRS PRN PO ANXIETY / AGITATION; Start at 15:30 Magnesium Hydroxide (Milk Of Magnesia) 1,200 mg PRN DAILY PRN PO CONSTIPATION; Start 09/01/16 at 15:30; Stop 09/01/16 at 16:05; Status DC Mirtazapine (Remeron) 15 mg QHS PO Last administered on 09/02/16 20:40; Start 09/01/16 at 21:00 Oxycodone HCl (Oxycontin) 10 mg BID PO Last administered on 09/03/16 09:40; Start 09/01/16 at 21:00 Oxycodone/ Acetaminophen (Percocet 5/325) 2 tab PRN Q6HRS PRN PO PAIN Last administered on 09/03/16 06:35; Start 09/01/16 at 15:30 Pantoprazole Sodium (Protonix) 40 mg DAILYAC PO Last administered on 09/03/16 06:35; Start 09/02/16 at 07:30 Polyethylene Glycol (miraLAX PACKET) 17 gm DAILY PO Last administered on 09:39; Start 09/02/16 at 09:00 Quetiapine Fumarate (SEROquel) 100 mg HS PO Last administered on 09/02/16 20:39 ; Start 09/01/16 at 21:00 Sennosides (Senna) 8.6 mg BID PO Last administered on 09/03/16 09:40; Start at 21:00 Trazodone HCl (Desyrel) 50 mg QHS PO ; Start 09/01/16 at 21:00; Stop 09/02/16 at 10:03; Status DC Acetaminophen (Tylenol) 650 mg PRN Q8HRS PRN PO PAIN; Start 09/01/16 at 15:45 Buspirone HCl (Buspar) 15 mg BID PO Last administered on 09/03/16 09:38; Start 09/01/16 at 21:00 Gabapentin (Neurontin) 600 mg TID PO Last administered on 09/03/16 09:39; Start 09/01/16 at 15:45 Magnesium Hydroxide (Milk Of Magnesia) 800 mg PRN DAILY PRN PO CONSTIPATION; Start 09/01/16 at 15:45 Multi-Ingredient Ointment (Analgesic [place]) 1 lori PRN Q6HRS PRN TP PAIN; Start 09/01/16 at 16:00; Stop 09/01/16 at 16:06; Status DC Multivitamins (Thera M Plus) 1 tab DAILY PO Last administered on 09/03/16 09: 42; Start 09/02/16 at 09:00 Quetiapine Fumarate (SEROquel) 50 mg TID@,,17 PO Last administered on 09:41; Start 09/01/16 at 17:00 Ondansetron HCl (Zofran) 4 mg PRN Q6HRS PRN IV NAUSEA/VOMITING; Start 09/01/16 at 15:30 Hydralazine HCl 10 mg 10 mg PRN Q4HRS PRN IVP ELEVATED BP, SEE COMMENTS; Start 09/01/16 at 15:30 Sodium Chloride (Iv Sodium Chloride 0.9% 1000ml Bag) 1,000 ml @ 75 mls/hr 1X ONCE IV Last administered on 09/01/16 19:30; Start 09/01/16 at 15:30; Stop at 04:49; Status DC Multi-Ingredient Ointment (Analgesic [place]) 1 lori PRN Q6HRS PRN TP PAIN; Start 09/01/16 at 16:06 Vancomycin HCl 250 mg 250 mg [id number] PO Last administered on 09/01/16 23:52; Start 09/01/16 at 20:30; Stop 09/01/16 at 21:01; Status DC Sodium Chloride 1,000 ml @ 1,000 mls/hr 1X ONCE IV Last administered on 21:01; Start 09/01/16 at 21:00; Stop 09/01/16 at 21:59; Status DC Sodium Chloride (Iv Sodium Chloride 0.9% 1000ml Bag) 1,000 ml @ 100 mls/hr Q10H IV Last administered on 09/02/16 02:05; Start 09/02/16 at 02:00; Stop at 10:03; Status DC Carvedilol 6.25 mg 6.25 mg BIDWMEALS PO Last administered on 09/03/16 09:38; Start 09/02/16 at 17:00 Sodium Chloride (Iv Sodium Chloride 0.9% 1000ml Bag) 1,000 ml @ 100 mls/hr Q10H IV Last administered on 09/03/16 08:00; Start 09/02/16 at 10:02; Stop 03/12 at 08:00; Status DC Active Scripts Active Antibiotic Ointment (Neomy Sulf/Bacitrac Zn/Poly) 28 Gm Oint...g. 28 Gm TP BID Reported Alprazolam 0.5 Mg Tablet 0.5 Mg PO PRN Q8HRS PRN Acetaminophen 325 Mg Capsule 325 Mg PO PRN Q8HRS PRN Trazodone Hcl 50 Mg Tablet 1 Tab PO QHS Senna (Sennosides) 8.6 Mg Tablet 8.6 Mg PO BID Remeron (Mirtazapine) 15 Mg Tablet 1 Tab PO QHS Quetiapine Fumarate 50 Mg Tablet 50 Mg PO TID Quetiapine Fumarate 100 Mg Tablet 100 Mg PO HS Oxycontin (Oxycodone HCl) 10 Mg Tab.er.12h 10 Mg PO BID Oxycodone-Acetaminophen 5-325 (Oxycodone Hcl/Acetaminophen) 1 Each Tablet 2 Tab PO PRN Q6HRS PRN Miralax (Polyethylene Glycol 3350) 17 Gm Powd.pack 1 Packet PO DAILY Milk Of Magnesia (Magnesium Hydroxide) 400 Mg/5 Ml Oral.susp 15 Ml PO PRN DAILY PRN Milk Of Magnesia (Magnesium Hydroxide) 2,400 Mg/10 Ml Oral.susp 10 Ml PO PRN DAILY PRN Neuro Max (Methyl Salicylate) 85 Gm Gel..gram. 85 Gm TP PRN Q6HRS PRN Lorazepam Intensol (Lorazepam) 2 Mg/1 Ml Oral.conc 1 Mg PO PRN Q6HRS PRN Folic Acid 1 Mg Tablet 1 Mg PO DAILY Duloxetine Hcl 30 Mg Capsule.dr 30 Mg PO DAILY Buspirone Hcl 15 Mg Tablet 1 Tab PO BID Women's Gentle Laxative (Bisacodyl) 5 Mg Tablet.dr 5 Mg PO PRN DAILY PRN Neurontin (Gabapentin) 300 Mg Capsule 2 Cap PO TID Antioxidant Vitamin (Multivitamin With Minerals) 1 Each Tablet 1 Each PO DAILY Pantoprazole Sodium 40 Mg Tablet.dr 1 Tab PO DAILY Aspirin 81 Mg Tab.chew 1 Tab PO DAILY Lisinopril 40 Mg Tablet 10 Mg PO DAILY Levothyroxine Sodium 50 Mcg Tablet 75 Mcg PO DAILY Carvedilol 6.25 Mg Tablet 12.5 Mg PO BID Amlodipine Besylate 5 Mg Tablet 10 Mg PO DAILY Vitals/I & O Vital Sign - Last 24 Hours 09/02/16 09/02/16 09/02/16 09/02/16 15:00 17:37 19:00 19:29 Temp 97.6 96.1 97.6 96.1 Pulse 63 63 66 Resp 18 18 B/P 132/60 132/60 103/36 Pulse Ox 92 94 O2 Delivery Nasal Cannula Nasal Cannula Room Air O2 Flow Rate 2.0 2.0 09/02/16 09/02/16 09/02/16 09/03/16 20:00 20:29 20:40 00:40 O2 Delivery Room Air Room Air Room Air O2 Flow Rate 2.0 2.0 09/03/16 09/03/16 09/03/16 09/03/16 03:00 06:35 07:35 07:40 Temp 96.6 97.3 96.6 97.3 Pulse 69 68 Resp 18 20 19 B/P 107/50 124/39 Pulse Ox 91 91 94 O2 Delivery Nasal Cannula Room Air Room Air Room Air O2 Flow Rate 2.0 09/03/16 09/03/16 09/03/16 09/03/16 08:00 09:38 09:40 10:42 Temp 96.8 96.8 Pulse 68 70 Resp 20 19 B/P 124/39 126/42 Pulse Ox 94 94 O2 Delivery Room Air Room Air Room Air Intake and Output 09/02/16 09/02/16 09/03/16 15:00 23:00 07:00 Intake Total 300 ml 0 ml Output Total 1375 ml 1900 ml Balance -1075 ml -1900 ml CHERYL ARORA III DO Sep 03, 2016 12:14
[2016-09-03 15:30] VITALS: BP 124/80
[2016-09-03 19:00] VITALS: BP 121/45
[2016-09-03] MEDS: DULOXETINE HCL 30 MG CAPSULE.DR. PO SCH (21:00)
[2016-09-03] MEDS: MIRTAZAPINE 15 MG TABLET PO SCH (21:04)
[2016-09-03] MEDS: QUEtiapine 100 MG TABLET. PO SCH (21:05)
[2016-09-03 23:00] VITALS: BP 120/49
--- NOTE | 2016-09-04 02:14 | CONS ---
DATE OF CONSULTATION: 09/03/2016 LOCATION: She is in room 532. ATTENDING PHYSICIAN: Dr. Laura Palmer. The patient was seen at the request of Dr. Palmer for rehab evaluation. HISTORY OF PRESENT ILLNESS: This is a 76-year-old female known to me in the past. The patient with chronic back pain status post lumbar decompression laminectomy done about 4 years ago by ____. The [facility], admitted through the Emergency Room on 09/01/2016, with urinary tract infection and hip pain. She was found retaining about 1700 mL of urine when they inserted indwelling Ramirez catheter in the Emergency Room. The patient with known hypertension, hyperlipidemia, old cerebrovascular accident, diabetes mellitus, hypothyroidism, and family history of hypertension. She is not known allergic to any medication. The patient had radiological studies done, which revealed fusion of the left side lower lumbar spine, severe levoscoliosis, surgical hardware is seen in the left iliac bone, old healed fracture of lateral aspect of left iliac bone, no acute process was noted. MRI scan of her lumbar spine done on 09/01/2016, revealed multilevel degenerative disk disease and degenerative joint disease with associated scoliosis, spondylolysis, L2-L3 fusion, no change in the findings at that level. No significant change from the prior study other than there is an increase in fluid within T12-L1 disk space; however, the endplates are not eroded to indicate diskitis, chronic subchondral sclerosis and degenerative endplate marrow signal changes at this level, most notable finding is [id number] spinal canal stenosis at that level. She also had moderate spinal stenosis at L2-L3, mild spinal stenosis at L3-L4, [id number] spinal stenosis at L4-L5 and mild spinal stenosis at L5-S1. No new compression fractures were noted. The patient apparently had gone through injections, therapy and used back brace before without any lasting help. She is not interested in trying any surgery at present time. PHYSICAL EXAMINATION: Revealed an elderly female, she is alert, oriented to time, place, person and circumstance and follows commands appropriately, moves all 4 extremities voluntarily where she had 4+/5 grade muscle strength with relatively increased weakness of dorsiflexor muscles of both feet. She had dressing to medial aspect of right mid foot. The patient had muscle atrophy involving foot intrinsic muscles. Deep tendon reflexes are 1+ in her upper extremities, 2+ at her knees, absent at both ankles. She had equal perception of touch and pinprick sensation bilaterally. She had tenderness to palpation over lower thoracic and lumbar spine and adjoining paraspinal muscles extending over to sacroiliac joint area, gluteal muscles and trochanteric bursa. Straight leg raising test is negative bilaterally. No significant pain on range of motion of her hip or knee joints at present time. Her skin is intact at this time. She is independent rolling from side to side. I have not tested her transfers or ambulation skills at this time. ASSESSMENT: An elderly female with chronic lower back pain with radiological evidence of multilevel degenerative disk disease and degenerative joint disease with some degree of central spinal and neural foraminal compromise and also chronic subchondral sclerosis and degenerative endplate marrow signal changes at T12-L1 where there is an increase in fluid within the T12-L1 disk space without any evidence of diskitis and [id number] spinal canal stenosis at T12-L1 level and scoliosis of thoracolumbar vertebrae. No acute compression fractures what noted. She also presents with clinical evidence of peripheral neuropathy and of course urinary retention. RECOMMENDATIONS: I have advised her about neurosurgical advice, but she is not interested at the present time. She is not interested in having any back support brace. She apparently used to have it, but she does not know where it is. It did not help her much. To try her with a ANGELES back support brace to help ease her pain while trying to get up. To consider trigger point injection if the pain persists or ask pain Clinic for epidural injections, but she is not interested in any injections at present time. To [facility] when medically stable if she is refusing to have any surgical advice. Dr. Palmer, I appreciate asking me to participate in the care of this interesting patient. I will be glad to follow her with you as needed for her rehabilitation. MILO MANDEL MD DR: YAMIL/ludin JOB#: [id number] / [id number]
[2016-09-04] MEDS: LEVOTHYROXINE 75 MCG TABLET PO SCH (06:04)
[2016-09-04] MEDS: PANTOPRAZOLE 40 MG TABLET.DR. PO SCH (06:05)
[2016-09-04] MEDS: OXYCODONE/APAP 5/325 TABLET. PO PRN ×2 (06:05→12:42)
[2016-09-04 07:00] VITALS: BP 139/43
--- NOTE | 2016-09-04 07:44 | CONS ---
DATE OF CONSULTATION: 09/03/2016 CHIEF COMPLAINT: Urinary retention. HISTORY OF PRESENT ILLNESS: This is a 76-year-old female who was admitted from the [facility]. The patient has a history of chronic back pain and was also admitted due to urinary retention. The patient states that she was having pelvic discomfort and pain. She asked the nursing staff at the [facility] to perform intermittent catheterization. According to the patient, they would not do this. Therefore, she states she called 911 to take her to the hospital. A Ramirez catheter was placed at the hospital, but the patient states that they obtained 1400 mL of urine. I do not see that recorded in the chart. PAST MEDICAL HISTORY: The patient has a history of hypertension, chronic back pain. She has had a previous CVA with left-sided weakness. She uses a wheelchair and a walker at the [facility]. The patient also has a history of diabetes and hypothyroidism. PAST SURGICAL HISTORY: The patient states that she has had 3 or 4 back surgeries. She has chronic back pain. PHYSICAL EXAMINATION: GENERAL DESCRIPTION: A 76-year-old female. She is sitting up in bed, eating breakfast. She denies acute pain or discomfort at this time. ABDOMEN: Soft, nontender. Negative for flank pain to palpation bilaterally. No palpable abdominal masses. There is no current suprapubic tenderness. Perineum: She has an indwelling Ramirez catheter draining kalani-colored urine. EXTREMITIES: Mild edema, lower extremities. Negative for cyanosis. LABORATORY STUDIES: The patient's white blood cell count is 6.5, her hemoglobin is 11.1, hematocrit 34.3, platelets are adequate. Electrolytes: Sodium is 132, her creatinine is 1.1. Urinalysis, kalani in color. Dipstick negative. Negative for red blood cells, negative for white blood cells, negative for bacteria. X-RAY STUDIES: X-ray of the pelvis, no acute fractures. MRI of the lumbar spine shows scoliosis, degenerative lumbar spondylosis, L2-L3 fusion, no new compression fractures. IMPRESSION: Urinary retention -- multifactorial, suspect a degree of hypotonic bladder plus medication induced secondary to her chronic pain meds and her psychotropic medications. SUGGESTIONS: 1. Once the patient is more ambulatory, I would suggest removing the Ramirez catheter for a voiding trial. I would start Flomax 1 tablet p.o. at bedtime at this time to see if we could counteract the effects of the pain medicine and psychotropic agents on the patient's urinary sphincter mechanism. 2. The patient may need to be taught self-intermittent catheterization if the above was not successful if she has the dexterity to do self-intermittent catheterization. Thank you for the opportunity to participate in evaluation of this patient. DEBBY ANDERSON DO DR: NAUN/ludin JOB#: [id number] / [id number]
[2016-09-04] MEDS: GABAPENTIN 300 MG CAPSULE. PO SCH ×2 (08:13→14:01)
[2016-09-04] MEDS: QUEtiapine 25 MG TABLET. PO SCH ×2 (08:13→12:41)
[2016-09-04] MEDS: POLYETHYLENE GLYCOL 3350 17 GM PACKET. PO SCH (08:13)
[2016-09-04] MEDS: ASPIRIN CHEWABLE 81 MG TABLET. PO SCH (08:14)
[2016-09-04] MEDS: busPIRone 5 MG TABLET. PO SCH (08:14)
[2016-09-04] MEDS: SENNOSIDES 8.6 MG TABLET PO SCH (08:14)
[2016-09-04] MEDS: MULTIVITAMIN with MINERAL TABLET. PO SCH (08:14)
[2016-09-04] MEDS: CARVEDILOL 6.25 MG TABLET. PO SCH (08:16)
[2016-09-04] MEDS: OXYCODONE ER 10 MG TAB.ER.12H. PO SCH (08:17)
--- NOTE | 2016-09-04 09:55 | PDOC ---
PROGRESS NOTES Subjective Subjective No new complaints Objective Objective Vital Signs Date Time Temp Pulse Resp B/P Pulse Ox O2 Delivery O2 Flow Rate FiO2 09/04/16 08:17 Room Air 09/04/16 08:16 67 120/49 09/04/16 07:30 3.0 09/04/16 07:05 20 98 09/04/16 07:00 97.5 97.5 Intake and Output 09/04/16 07:00 Intake Total 480 ml Output Total 2300 ml Balance -1820 ml Intake Oral 480 ml Output Urine Total 2300 ml Stool Total 0 ml Physical Exam Physical Exam She is supine in bed and continues with low back pain with movement and waiting for trial of ANGELES back support brace to support her back. Assessment Assessment Problems Medical Problems: (1) Acute urinary retention Status: Acute (2) Anemia Status: Acute (3) Lower extremity pain Status: Acute Plan Plan of Care To SNF when medically stable. Comment Review of Relevant I have reviewed the following items camacho (where applicable) has been applied. Medications Current Medications Fentanyl Citrate (Fentanyl 2ml Vial) 25 mcg PRN Q15MIN PRN IV PAIN GREATER THAN 3/10 Last administered on 09/01/16 11:49; Start 09/01/16 at 11:15; Stop 09/01 at 14:15; Status DC Ondansetron HCl (Zofran) 4 mg PRN Q8HRS PRN IV NAUSEA/VOMITING; Start 09/01/16 at 14:15; Stop 09/02/16 at 14:14; Status DC Fentanyl Citrate (Fentanyl 2ml Vial) 50 mcg PRN Q1HR PRN IV PAIN; Start at 14:15; Stop 09/02/16 at 14:14; Status DC Acetaminophen (Tylenol) 650 mg PRN Q4HRS PRN PO FEVER; Start 09/01/16 at 14:15; Stop 09/02/16 at 14:14; Status DC Alprazolam (Xanax) 0.5 mg PRN Q8HRS PRN PO ANXIETY / AGITATION; Start 09/01/16 at 15:30 Amlodipine Besylate (Norvasc) 10 mg DAILY PO ; Start 09/02/16 at 09:00; Stop 09/02 at 09:00; Status DC Aspirin (Children'S Aspirin) 81 mg DAILY PO Last administered on 09/04/16 08: 14; Start 09/02/16 at 09:00 Bisacodyl (Dulcolax Tab) 5 mg PRN DAILY PRN PO CONSTIPATION (1ST CHOICE); Start 09/01/16 at 15:30 Carvedilol (Coreg) 12.5 mg BIDWMEALS PO Last administered on 09/02/16 09:08; Start 09/01/16 at 17:00; Stop 09/02/16 at 10:03; Status DC Duloxetine HCl (Cymbalta) 30 mg HS PO Last administered on 09/03/16 21:00; Start 09/01/16 at 22:00 Folic Acid (Folic Acid) 1 mg DAILY PO Last administered on 09/02/16 09:07; Start 09/02/16 at 09:00; Stop 09/02/16 at 10:03; Status DC Levothyroxine Sodium (Synthroid) 75 mcg DAILY07 PO Last administered on 06:04; Start 09/02/16 at 07:00 Lisinopril (Prinivil) 10 mg DAILY PO Last administered on 09/02/16 09:07; Start 09/02/16 at 09:00; Stop 09/02/16 at 10:03; Status DC Lorazepam (Ativan Intensol) 1 mg PRN Q6HRS PRN PO ANXIETY / AGITATION; Start at 15:30 Magnesium Hydroxide (Milk Of Magnesia) 1,200 mg PRN DAILY PRN PO CONSTIPATION; Start 09/01/16 at 15:30; Stop 09/01/16 at 16:05; Status DC Mirtazapine (Remeron) 15 mg QHS PO Last administered on 09/03/16 21:04; Start 09/01/16 at 21:00 Oxycodone HCl (Oxycontin) 10 mg BID PO Last administered on 09/04/16 08:17; Start 09/01/16 at 21:00 Oxycodone/ Acetaminophen (Percocet 5/325) 2 tab PRN Q6HRS PRN PO MODERATE TO SEVERE PAIN Last administered on 09/04/16 06:05; Start 09/01/16 at 15:30 Pantoprazole Sodium (Protonix) 40 mg DAILYAC PO Last administered on 09/04/16 06:05; Start 09/02/16 at 07:30 Polyethylene Glycol (miraLAX PACKET) 17 gm DAILY PO Last administered on 08:13; Start 09/02/16 at 09:00 Quetiapine Fumarate (SEROquel) 100 mg HS PO Last administered on 09/03/16 21: 05; Start 09/01/16 at 21:00 Sennosides (Senna) 8.6 mg BID PO Last administered on 09/04/16 08:14; Start at 21:00 Trazodone HCl (Desyrel) 50 mg QHS PO ; Start 09/01/16 at 21:00; Stop 09/02/16 at 10:03; Status DC Acetaminophen (Tylenol) 650 mg PRN Q8HRS PRN PO MILD PAIN; Start 09/01/16 at 15: 45 Buspirone HCl (Buspar) 15 mg BID PO Last administered on 09/04/16 08:14; Start 09/01/16 at 21:00 Gabapentin (Neurontin) 600 mg TID PO Last administered on 09/04/16 08:13; Start 09/01/16 at 15:45 Magnesium Hydroxide (Milk Of Magnesia) 800 mg PRN DAILY PRN PO CONSTIPATION ( 2ND CHOICE); Start 09/01/16 at 15:45 Multi-Ingredient Ointment (Analgesic [place]) 1 lori PRN Q6HRS PRN TP PAIN; Start 09/01/16 at 16:00; Stop 09/01/16 at 16:06; Status DC Multivitamins (Thera M Plus) 1 tab DAILY PO Last administered on 09/04/16 08: 14; Start 09/02/16 at 09:00 Quetiapine Fumarate (SEROquel) 50 mg TID@,,17 PO Last administered on 08:13; Start 09/01/16 at 17:00 Ondansetron HCl (Zofran) 4 mg PRN Q6HRS PRN IV NAUSEA/VOMITING; Start 09/01/16 at 15:30 Hydralazine HCl 10 mg 10 mg PRN Q4HRS PRN IVP ELEVATED BP, SEE COMMENTS; Start 09/01/16 at 15:30 Sodium Chloride (Iv Sodium Chloride 0.9% 1000ml Bag) 1,000 ml @ 75 mls/hr 1X ONCE IV Last administered on 09/01/16 19:30; Start 09/01/16 at 15:30; Stop at 04:49; Status DC Multi-Ingredient Ointment (Analgesic [place]) 1 lori PRN Q6HRS PRN TP PAIN; Start 09/01/16 at 16:06 Vancomycin HCl 250 mg 250 mg [id number] PO Last administered on 09/01/16 23:52; Start 09/01/16 at 20:30; Stop 09/01/16 at 21:01; Status DC Sodium Chloride 1,000 ml @ 1,000 mls/hr 1X ONCE IV Last administered on 21:01; Start 09/01/16 at 21:00; Stop 09/01/16 at 21:59; Status DC Sodium Chloride (Iv Sodium Chloride 0.9% 1000ml Bag) 1,000 ml @ 100 mls/hr Q10H IV Last administered on 09/02/16 02:05; Start 09/02/16 at 02:00; Stop at 10:03; Status DC Carvedilol 6.25 mg 6.25 mg BIDWMEALS PO Last administered on 09/04/16 08:16; Start 09/02/16 at 17:00 Sodium Chloride (Iv Sodium Chloride 0.9% 1000ml Bag) 1,000 ml @ 100 mls/hr Q10H IV Last administered on 09/03/16 08:00; Start 09/02/16 at 10:02; Stop 03/12 at 08:00; Status DC Active Scripts Active Antibiotic Ointment (Neomy Sulf/Bacitrac Zn/Poly) 28 Gm Oint...g. 28 Gm TP BID Reported Alprazolam 0.5 Mg Tablet 0.5 Mg PO PRN Q8HRS PRN Acetaminophen 325 Mg Capsule 325 Mg PO PRN Q8HRS PRN Trazodone Hcl 50 Mg Tablet 1 Tab PO QHS Senna (Sennosides) 8.6 Mg Tablet 8.6 Mg PO BID Remeron (Mirtazapine) 15 Mg Tablet 1 Tab PO QHS Quetiapine Fumarate 50 Mg Tablet 50 Mg PO TID Quetiapine Fumarate 100 Mg Tablet 100 Mg PO HS Oxycontin (Oxycodone HCl) 10 Mg Tab.er.12h 10 Mg PO BID Oxycodone-Acetaminophen 5-325 (Oxycodone Hcl/Acetaminophen) 1 Each Tablet 2 Tab PO PRN Q6HRS PRN Miralax (Polyethylene Glycol 3350) 17 Gm Powd.pack 1 Packet PO DAILY Milk Of Magnesia (Magnesium Hydroxide) 400 Mg/5 Ml Oral.susp 15 Ml PO PRN DAILY PRN Milk Of Magnesia (Magnesium Hydroxide) 2,400 Mg/10 Ml Oral.susp 10 Ml PO PRN DAILY PRN Neuro Max (Methyl Salicylate) 85 Gm Gel..gram. 85 Gm TP PRN Q6HRS PRN Lorazepam Intensol (Lorazepam) 2 Mg/1 Ml Oral.conc 1 Mg PO PRN Q6HRS PRN Folic Acid 1 Mg Tablet 1 Mg PO DAILY Duloxetine Hcl 30 Mg Capsule.dr 30 Mg PO DAILY Buspirone Hcl 15 Mg Tablet 1 Tab PO BID Women's Gentle Laxative (Bisacodyl) 5 Mg Tablet.dr 5 Mg PO PRN DAILY PRN Neurontin (Gabapentin) 300 Mg Capsule 2 Cap PO TID Antioxidant Vitamin (Multivitamin With Minerals) 1 Each Tablet 1 Each PO DAILY Pantoprazole Sodium 40 Mg Tablet.dr 1 Tab PO DAILY Aspirin 81 Mg Tab.chew 1 Tab PO DAILY Lisinopril 40 Mg Tablet 10 Mg PO DAILY Levothyroxine Sodium 50 Mcg Tablet 75 Mcg PO DAILY Carvedilol 6.25 Mg Tablet 12.5 Mg PO BID Amlodipine Besylate 5 Mg Tablet 10 Mg PO DAILY Vitals/I & O Vital Sign - Last 24 Hours 09/03/16 09/03/16 09/03/16 09/03/16 10:42 12:36 13:36 15:30 Temp 96.8 97.5 96.8 97.5 Pulse 70 66 Resp 19 20 20 B/P 126/42 124/80 Pulse Ox 94 94 94 95 O2 Delivery Room Air Room Air Room Air Room Air 09/03/16 09/03/16 09/03/16 09/03/16 17:43 18:37 19:00 21:04 Temp 97.2 97.2 Pulse 66 72 Resp 20 20 20 B/P 124/80 121/45 Pulse Ox 95 95 O2 Delivery Room Air Room Air 4/1009/04/16 09/04/16 09/04/16 23:00 01:10 06:05 07:00 Temp 98.2 97.5 98.2 97.5 Pulse 67 69 Resp 20 20 20 16 B/P 120/49 139/43 Pulse Ox 98 90 O2 Delivery Room Air Nasal Cannula O2 Flow Rate 3.0 09/04/16 09/04/16 09/04/16 09/04/16 07:05 07:30 08:16 08:17 Pulse 67 Resp 20 B/P 120/49 Pulse Ox 98 O2 Delivery Room Air Room Air Room Air O2 Flow Rate 3.0 Intake and Output 09/03/16 09/03/16 09/04/16 15:00 23:00 07:00 Intake Total 480 ml Output Total 700 ml 750 ml 850 ml Balance -220 ml -750 ml -850 ml MILO MANDEL MD Sep 04, 2016 09:55
[2016-09-04 11:00] VITALS: BP 120/50
--- NOTE | 2016-09-04 14:51 | PDOC ---
PROGRESS NOTES Chief Complaint Chief Complaint cc: Shoulder and hip pain with urinary retention -UTI -Incontinence -PA -Brain aneurysm -cardiac catheterization -hypercholesterolemia -peripheral neuropathy -CVA -Blood disorder -Neck pain -Oral surgery -Cataracts -Smoking -Anxiety -Depression -GERD -Hypertension -Hyperthyroidism -Hypothyroidism -Diabetes mellitus -Pneumonia -Arthritis -Left shoulder surgery -Joint replacement -Musculoskeletal trauma -Neck pain History of Present Illness History of Present Illness The patient was lying down during our visit and was concerned about her potential discharge to her residence. The patient was discussed with clinical social worker. She describes having back pain, and she has a history of lumbar injections for it. She has a catheter in place. She is able to move around well in the room, but the brace she has for her back is not working well. Additionally, she described a lesion on her right foot as a red and round bump. Her case was also discussed with the nurse. Vitals Vitals Vital Signs Date Time Temp Pulse Resp B/P Pulse Ox O2 Delivery O2 Flow Rate FiO2 09/04/16 12:42 20 92 Room Air 09/04/16 11:00 98.1 68 120/50 98.1 09/04/16 07:30 3.0 Physical Exam General: Alert, Cooperative Heart: Regular rate, Normal S1, Normal S2 Lungs: Clear, Other (No chest retractions) Abdomen: Normal bowel sounds, Soft, Other (Slightly distended) Extremities: No clubbing, No cyanosis Skin: No rashes, No breakdown Review of Systems Review of Systems The patient does not have dizziness or lightheadedness. She has had a bowel movement today. Assessment and Plan Assessmemt and Plan Problems Medical Problems: (1) Acute urinary retention Status: Acute (2) Anemia Status: Acute (3) Lower extremity pain Status: Acute Ms. Gordon is a 76 year old female that presented with shoulder and hip pain, along with urinary retention. -UTI -Incontinence -PA -Brain aneurysm -cardiac catheterization -hypercholesterolemia -peripheral neuropathy -CVA -Blood disorder -Neck pain -Oral surgery -Cataracts -Smoking -Anxiety -Depression -GERD -Hypertension -Hyperthyroidism -Hypothyroidism -Diabetes mellitus -Pneumonia -Arthritis -Left shoulder surgery -Joint replacement -Musculoskeletal trauma -Neck pain Plan: 1. Discharge likely 2. Continue pain medications 3. Continue home medications 4. Consider additional OT/PT 5. Appreciate consultation from PM&R and urology Problems: Comment Review of Relevant I have reviewed the following items camacho (where applicable) has been applied. Medications Current Medications Fentanyl Citrate (Fentanyl 2ml Vial) 25 mcg PRN Q15MIN PRN IV PAIN GREATER THAN 3/10 Last administered on 09/01/16 11:49; Start 09/01/16 at 11:15; Stop 09/01 at 14:15; Status DC Ondansetron HCl (Zofran) 4 mg PRN Q8HRS PRN IV NAUSEA/VOMITING; Start 09/01/16 at 14:15; Stop 09/02/16 at 14:14; Status DC Fentanyl Citrate (Fentanyl 2ml Vial) 50 mcg PRN Q1HR PRN IV PAIN; Start at 14:15; Stop 09/02/16 at 14:14; Status DC Acetaminophen (Tylenol) 650 mg PRN Q4HRS PRN PO FEVER; Start 09/01/16 at 14:15; Stop 09/02/16 at 14:14; Status DC Alprazolam (Xanax) 0.5 mg PRN Q8HRS PRN PO ANXIETY / AGITATION; Start 09/01/16 at 15:30 Amlodipine Besylate (Norvasc) 10 mg DAILY PO ; Start 09/02/16 at 09:00; Stop 09/02 at 09:00; Status DC Aspirin (Children'S Aspirin) 81 mg DAILY PO Last administered on 09/04/16 08: 14; Start 09/02/16 at 09:00 Bisacodyl (Dulcolax Tab) 5 mg PRN DAILY PRN PO CONSTIPATION (1ST CHOICE); Start 09/01/16 at 15:30 Carvedilol (Coreg) 12.5 mg BIDWMEALS PO Last administered on 09/02/16 09:08; Start 09/01/16 at 17:00; Stop 09/02/16 at 10:03; Status DC Duloxetine HCl (Cymbalta) 30 mg HS PO Last administered on 09/03/16 21:00; Start 09/01/16 at 22:00 Folic Acid (Folic Acid) 1 mg DAILY PO Last administered on 09/02/16 09:07; Start 09/02/16 at 09:00; Stop 09/02/16 at 10:03; Status DC Levothyroxine Sodium (Synthroid) 75 mcg DAILY07 PO Last administered on 06:04; Start 09/02/16 at 07:00 Lisinopril (Prinivil) 10 mg DAILY PO Last administered on 09/02/16 09:07; Start 09/02/16 at 09:00; Stop 09/02/16 at 10:03; Status DC Lorazepam (Ativan Intensol) 1 mg PRN Q6HRS PRN PO ANXIETY / AGITATION; Start at 15:30 Magnesium Hydroxide (Milk Of Magnesia) 1,200 mg PRN DAILY PRN PO CONSTIPATION; Start 09/01/16 at 15:30; Stop 09/01/16 at 16:05; Status DC Mirtazapine (Remeron) 15 mg QHS PO Last administered on 09/03/16 21:04; Start 09/01/16 at 21:00 Oxycodone HCl (Oxycontin) 10 mg BID PO Last administered on 09/04/16 08:17; Start 09/01/16 at 21:00 Oxycodone/ Acetaminophen (Percocet 5/325) 2 tab PRN Q6HRS PRN PO MODERATE TO SEVERE PAIN Last administered on 09/04/16 12:42; Start 09/01/16 at 15:30 Pantoprazole Sodium (Protonix) 40 mg DAILYAC PO Last administered on 09/04/16 06:05; Start 09/02/16 at 07:30 Polyethylene Glycol (miraLAX PACKET) 17 gm DAILY PO Last administered on 08:13; Start 09/02/16 at 09:00 Quetiapine Fumarate (SEROquel) 100 mg HS PO Last administered on 09/03/16 21: 05; Start 09/01/16 at 21:00 Sennosides (Senna) 8.6 mg BID PO Last administered on 09/04/16 08:14; Start at 21:00 Trazodone HCl (Desyrel) 50 mg QHS PO ; Start 09/01/16 at 21:00; Stop 09/02/16 at 10:03; Status DC Acetaminophen (Tylenol) 650 mg PRN Q8HRS PRN PO MILD PAIN; Start 09/01/16 at 15: 45 Buspirone HCl (Buspar) 15 mg BID PO Last administered on 09/04/16 08:14; Start 09/01/16 at 21:00 Gabapentin (Neurontin) 600 mg TID PO Last administered on 09/04/16 14:01; Start 09/01/16 at 15:45 Magnesium Hydroxide (Milk Of Magnesia) 800 mg PRN DAILY PRN PO CONSTIPATION ( 2ND CHOICE); Start 09/01/16 at 15:45 Multi-Ingredient Ointment (Analgesic [place]) 1 lori PRN Q6HRS PRN TP PAIN; Start 09/01/16 at 16:00; Stop 09/01/16 at 16:06; Status DC Multivitamins (Thera M Plus) 1 tab DAILY PO Last administered on 09/04/16 08: 14; Start 09/02/16 at 09:00 Quetiapine Fumarate (SEROquel) 50 mg TID@,13,17 PO Last administered on 12:41; Start 09/01/16 at 17:00 Ondansetron HCl (Zofran) 4 mg PRN Q6HRS PRN IV NAUSEA/VOMITING; Start 09/01/16 at 15:30 Hydralazine HCl 10 mg 10 mg PRN Q4HRS PRN IVP ELEVATED BP, SEE COMMENTS; Start 09/01/16 at 15:30 Sodium Chloride (Iv Sodium Chloride 0.9% 1000ml Bag) 1,000 ml @ 75 mls/hr 1X ONCE IV Last administered on 09/01/16 19:30; Start 09/01/16 at 15:30; Stop at 04:49; Status DC Multi-Ingredient Ointment (Analgesic [place]) 1 lori PRN Q6HRS PRN TP PAIN; Start 09/01/16 at 16:06 Vancomycin HCl 250 mg 250 mg [id number] PO Last administered on 09/01/16 23:52; Start 09/01/16 at 20:30; Stop 09/01/16 at 21:01; Status DC Sodium Chloride 1,000 ml @ 1,000 mls/hr 1X ONCE IV Last administered on 21:01; Start 09/01/16 at 21:00; Stop 09/01/16 at 21:59; Status DC Sodium Chloride (Iv Sodium Chloride 0.9% 1000ml Bag) 1,000 ml @ 100 mls/hr Q10H IV Last administered on 09/02/16 02:05; Start 09/02/16 at 02:00; Stop at 10:03; Status DC Carvedilol 6.25 mg 6.25 mg BIDWMEALS PO Last administered on 09/04/16 08:16; Start 09/02/16 at 17:00 Sodium Chloride (Iv Sodium Chloride 0.9% 1000ml Bag) 1,000 ml @ 100 mls/hr Q10H IV Last administered on 09/03/16 08:00; Start 09/02/16 at 10:02; Stop 03/12 at 08:00; Status DC Active Scripts Active Antibiotic Ointment (Neomy Sulf/Bacitrac Zn/Poly) 28 Gm Oint...g. 28 Gm TP BID Reported Alprazolam 0.5 Mg Tablet 0.5 Mg PO PRN Q8HRS PRN Acetaminophen 325 Mg Capsule 325 Mg PO PRN Q8HRS PRN Trazodone Hcl 50 Mg Tablet 1 Tab PO QHS Senna (Sennosides) 8.6 Mg Tablet 8.6 Mg PO BID Remeron (Mirtazapine) 15 Mg Tablet 1 Tab PO QHS Quetiapine Fumarate 50 Mg Tablet 50 Mg PO TID Quetiapine Fumarate 100 Mg Tablet 100 Mg PO HS Oxycontin (Oxycodone HCl) 10 Mg Tab.er.12h 10 Mg PO BID Oxycodone-Acetaminophen 5-325 (Oxycodone Hcl/Acetaminophen) 1 Each Tablet 2 Tab PO PRN Q6HRS PRN Miralax (Polyethylene Glycol 3350) 17 Gm Powd.pack 1 Packet PO DAILY Milk Of Magnesia (Magnesium Hydroxide) 400 Mg/5 Ml Oral.susp 15 Ml PO PRN DAILY PRN Milk Of Magnesia (Magnesium Hydroxide) 2,400 Mg/10 Ml Oral.susp 10 Ml PO PRN DAILY PRN Neuro Max (Methyl Salicylate) 85 Gm Gel..gram. 85 Gm TP PRN Q6HRS PRN Lorazepam Intensol (Lorazepam) 2 Mg/1 Ml Oral.conc 1 Mg PO PRN Q6HRS PRN Folic Acid 1 Mg Tablet 1 Mg PO DAILY Duloxetine Hcl 30 Mg Capsule.dr 30 Mg PO DAILY Buspirone Hcl 15 Mg Tablet 1 Tab PO BID Women's Gentle Laxative (Bisacodyl) 5 Mg Tablet. 5 Mg PO PRN DAILY PRN Neurontin (Gabapentin) 300 Mg Capsule 2 Cap PO TID Antioxidant Vitamin (Multivitamin With Minerals) 1 Each Tablet 1 Each PO DAILY Pantoprazole Sodium 40 Mg Tablet.dr 1 Tab PO DAILY Aspirin 81 Mg Tab.chew 1 Tab PO DAILY Lisinopril 40 Mg Tablet 10 Mg PO DAILY Levothyroxine Sodium 50 Mcg Tablet 75 Mcg PO DAILY Carvedilol 6.25 Mg Tablet 12.5 Mg PO BID Amlodipine Besylate 5 Mg Tablet 10 Mg PO DAILY Vitals/I & O Vital Sign - Last 24 Hours 09/03/16 09/03/16 09/03/16 09/03/16 15:30 17:43 18:37 19:00 Temp 97.5 97.2 97.5 97.2 Pulse 66 66 72 Resp 20 20 20 B/P 124/80 124/80 121/45 Pulse Ox 95 95 95 O2 Delivery Room Air Room Air Room Air 09/03/16 09/03/16 09/04/16 09/04/16 21:04 23:00 06:05 07:00 Temp 98.2 97.5 98.2 97.5 Pulse 67 69 Resp 20 20 20 16 B/P 120/49 139/43 Pulse Ox 98 90 O2 Delivery Room Air Nasal Cannula O2 Flow Rate 3.0 09/04/16 09/04/16 09/04/16 09/04/16 07:05 07:30 08:16 08:17 Pulse 67 Resp 20 B/P 120/49 Pulse Ox 98 O2 Delivery Room Air Room Air Room Air O2 Flow Rate 3.0 09/04/16 09/04/16 09/04/16 11:00 12:17 12:42 Temp 98.1 98.1 Pulse 68 Resp 20 20 B/P 120/50 Pulse Ox 92 92 92 O2 Delivery Room Air Room Air Room Air Intake and Output 09/03/16 09/03/16 09/04/16 15:00 23:00 07:00 Intake Total 480 ml Output Total 700 ml 750 ml 850 ml Balance -220 ml -750 ml -850 ml CHERYL ARORA III DO Sep 04, 2016 14:51
--- NOTE | 2016-09-05 20:10 | DS ---
DATE OF DISCHARGE: 09/04/2016 ADMISSION DIAGNOSES: Chronic urinary retention, chronic back pain. DISCHARGE DIAGNOSES: Chronic urinary retention, chronic back pain. CONSULTS: Dr. Saravia and Dr. Riggins. PROCEDURES: None. HOSPITAL COURSE: The patient is a pleasant 76-year-old female presented with chronic back pain and urinary retention. She was admitted with the above. Consults were obtained. There really was not a whole lot we can do about her urinary retention. We did place the Ramirez though. Dr. Saravia did some physical therapy. Basically, she is doing better. We plan to discharge to [facility] Level 2 Psych Unit. DISPOSITION: [facility] Level 2 Psych. ACTIVITY: As tolerated. DIET: Low sodium. MEDICATIONS: Please see the MRAD. TOTAL TIME: 34 minutes. KLEBERL Campos ARORA DO DR: ROSIE/ludin JOB#: [id number] / [id number]
== END 2016-09-04 14:56 | DRG 552 ==
LOC: ER 10:41 → 4 NORTH 13:06 → 5 NORTH 15:04
PROVIDERS: ADMIT Internal Medicine; ATTEND Internal Medicine
DX: M48.06 Spinal stenosis, lumbar region (principal); E87.1 Hypo-osmolality and hyponatremia; I69.954 Hemiplegia and hemiparesis following unspecified cerebrovascular disease affecting left non-dominant side; N39.0 Urinary tract infection, site not specified; E11.42 Type 2 diabetes mellitus with diabetic polyneuropathy; R33.9 Retention of urine, unspecified; D64.9 Anemia, unspecified; E03.9 Hypothyroidism, unspecified; E05.90 Thyrotoxicosis, unspecified without thyrotoxic crisis or storm; E78.00 Pure hypercholesterolemia, unspecified; R32 Unspecified urinary incontinence; M51.36 Other intervertebral disc degeneration, lumbar region; M19.90 Unspecified osteoarthritis, unspecified site; K21.9 Gastro-esophageal reflux disease without esophagitis; F41.9 Anxiety disorder, unspecified; F17.210 Nicotine dependence, cigarettes, uncomplicated; F32.9 Major depressive disorder, single episode, unspecified; E78.5 Hyperlipidemia, unspecified; M48.07 Spinal stenosis, lumbosacral region; H26.9 Unspecified cataract; G89.29 Other chronic pain; G62.9 Polyneuropathy, unspecified; Z87.01 Personal history of pneumonia (recurrent); Z82.49 Family history of ischemic heart disease and other diseases of the circulatory system; Z87.440 Personal history of urinary (tract) infections
CPT/HCPCS: 36415; 72148; 72170; 80048; 81001; 85027; 87641; 96374; J3010; J7030; 97110; 97116; 99285-25

== ENCOUNTER 2016-11-30 19:53 | Inpatient (IN) | payer MEDICARE, BC ==
[~2016-11-30] VITALS: Ht 170.2 cm; Wt 61.5 kg
[~2016-11-30 19:53] MED LIST changes: +ASPI-630 PO; -ASPI81TA2 PO; -MAGN400O4 PO; +MAGN400O7 PO; -OXYC-244 PO; +OXYC-327 PO; -OXYC10TA32 PO; +OXYC10TA45 PO; +OXYC5CAP PO; -OXYC5CAP3 PO; +POLY17PO29 PO; -POLY17PO5 PO; +SENN-79 PO; -SENN8.6T3 PO
[2016-11-30 20:41] LABS: BASO % 0 % (0-3); EOS % 1 % (0-3); HEMATOCRIT 33.9 % (36.0-47.0); HEMOGLOBIN 11.1 g/dL (12.0-15.5); LYMPH # 1.3 x10^3/uL (1.0-4.8); LYMPH % 9 % (24-48); MEAN CORPUSCULAR HEMOGLOBIN 32 pg (25-35); MEAN CORPUSCULAR HGB CONC 33 g/dL (31-37); MEAN CORPUSCULAR VOLUME 97 fL (79-100); MONO % 11 % (0-9); NEUT % 79 % (31-73); PLATELET COUNT 263 x10^3/uL (140-400); RED BLOOD COUNT 3.51 x10^6/uL (3.50-5.40); RED CELL DISTRIBUTION WIDTH 16.4 % (11.5-14.5); WHITE BLOOD COUNT 14.7 x10^3/uL (4.0-11.0)
[2016-11-30] MEDS ORDERED: IV NORMAL SALINE 500ML BAG 500 ML IV ONE (20:45)
[2016-11-30] MEDS ORDERED: IV NORMAL SALINE 1000ML BAG 1,000 ML IV SCH (20:45)
[2016-11-30 20:52] LABS: CALCIUM 8.2 mg/dL (8.5-10.1); GFR 54.1; POTASSIUM 5.7 mmol/L (3.5-5.1)
--- NOTE | 2016-11-30 21:58 | RAD ---
Indication: Found unresponsive. Axial imaging through the brain and cervical spine was performed without contrast. Sagittal and coronal reformations were also performed. One or more of the following individualized dose reduction techniques were utilized for this examination: 1. Automated exposure control 2. Adjustment of the mA and/or kV according to patient size 3. Use of iterative reconstruction technique Comparison is made with prior head CT from 06/30/2016. CT brain: The ventricles and sulci are stable. Large region of encephalomalacia in the right middle cerebral artery territory is again noted and consistent with prior infarct. No sulcal effacement is identified. No midline shift or hemorrhage is detected. The cisterns are patent. The visualized paranasal sinuses are clear. IMPRESSION: Stable chronic changes. No acute intracranial process is detected. CT cervical spine: Study is significantly compromised due to patient motion. There is severe multilevel degenerative disc disease. This is most marked at C4-5, C5-6 and C6-7 levels where there is complete loss of the disc space. Large marginal osteophytes are also present. There is multilevel facet arthropathy. No fractures are identified. The odontoid appears intact. IMPRESSION: Compromised study due to patient motion. There is cervical spondylosis. No acute bony abnormality is detected. Electronically signed by: Ulises Orozco MD (11/30/2016 9:55 PM) [facility]
[2016-11-30 22:01] LABS: BILIRUBIN,URINE NEGATIVE (NEG); GLUCOSE,URINE NEGATIVE (NEG); NITRITE,URINE NEGATIVE (NEG); PH,URINE 6.5; PROTEIN,URINE NEGATIVE (NEG-TRACE); UROBILINOGEN,URINE 0.2 mg/dL (0.2 mg/dL)
[2016-11-30 22:06] LABS: BACTERIA,URINE MANY /HPF (0-FEW); SQUAMOUS EPITHELIAL CELL,UR OCC /LPF
[2016-11-30 22:08] LABS: BARBITURATES NEG (NEG); BENZODIAZEPINES NEG (NEG); CANNABINOIDS NEG (NEG); COCAINE NEG (NEG); METHADONE NEG (NEG); OPIATES NEG (NEG); PHENCYCLIDINE NEG (NEG)
--- NOTE | 2016-11-30 22:43 | PHYS DOC ---
Past Medical History Past Medical History: Anxiety, Bipolar, Constipation, Depression, Diabetes- Type II, GERD, High Cholesterol, Hypertension, Hypothyroid, Stroke, Other Additional Past Medical Histor: CHRONIC BACK PAIN, PYSCH HX Past Surgical History: Lumbar Laminectomy, Other Additional Past Surgical Histo: LEFT SHOULDER REPAIR, L hip repair-plate and screws Alcohol Use: None Drug Use: None Adult General Chief Complaint Chief Complaint: ALTERED MENTAL STATUS HPI HPI 76-year-old female who lives in psychiatric care setting now sent for evaluation of altered mental status. Patient has a history of anxiety bipolar depression and a prior middle cerebral artery distribution right CVA. At 3 PM patient was last known well and locked herself in the bathroom because she was angry about switching rooms. Apparently patient left a suicide note. As a baseline per staff she is communicative and alert. They described that she does not have access to medications as her medication administration is supervised. Patient was found just prior to arrival in our emergency department in a noncommunicative state. She has been awake but not following commands. No evidence of trauma and staff denies the possibility of overdose or ingestion. Patient does have a DNR status which is documented. Review of Systems Review of Systems Constitutional: Denies fever or chills [] Eyes: Denies change in visual acuity, redness, or eye pain [] HENT: Denies nasal congestion or sore throat [] Respiratory: Denies cough or shortness of breath [] Cardiovascular: No additional information not addressed in HPI [] GI: Denies abdominal pain, nausea, vomiting, bloody stools or diarrhea [] : Denies dysuria or hematuria [] Musculoskeletal: Denies back pain or joint pain [] Integument: Denies rash or skin lesions [] Neurologic: Denies headache, focal weakness or sensory changes [] Endocrine: Denies polyuria or polydipsia [] Current Medications Current Medications Current Medications Medications (Trade) Dose Ordered Sig/Anne Start Time Stop Time Status Last Admin Dose Admin Calcium Gluconate (Calcium Gluconate) 1,000 mg 1X ONCE 11/30/16 23:30 11/30/16 23:31 DC 11/30/16 23:12 1,000 MG Ceftriaxone Sodium 1 gm/ Sodium Chloride 50 ml @ 100 mls/hr ONCE ONCE 11/30/16 22:30 11/30/16 22:59 UNV Ceftriaxone Sodium 50 ml @ 100 mls/hr 1X ONCE 11/30/16 23:00 11/30/16 23:29 DC 11/30/16 22:43 100 MLS/HR Lorazepam (Ativan) 1 mg 1X ONCE 11/30/16 22:00 11/30/16 22:01 DC 11/30/16 21:20 1 MG Sodium Chloride 500 ml @ 500 mls/hr 1X ONCE 11/30/16 20:45 11/30/16 21:44 DC 11/30/16 20:59 500 MLS/HR Allergies Allergies Allergies Coded Allergies Type Severity Reaction Last Updated Verified I S O L A T I O N *CONTACT* Allergy Unknown 09/03/16 Yes No Known Medication Allergies Allergy Unknown 09/03/16 Yes Physical Exam Physical Exam Chronically weak appearing 76-year-old female with spontaneous eye opening with extraocular muscle excursion intact. Pupils equal and reactive bilateral. Patient is weak on the left side. Normocephalic atraumatic. No Corona sign. No ecchymosis . C-spine with no step off. Patient feels cool on initial arrival and rectal temperature was found to be 95F. Warming [place]/ Bear hugger applied. Clear lungs regular rate and rhythm nondistended abdomen with no palpable masses. No skin lesions. Right lower extremity is shortened but not externally rotated. Stable pelvis Constitutional: As above HENT: Normocephalic, atraumatic, bilateral external ears normal, dry mucous membranes, no oral exudates, nose normal. [] Eyes: PERRLA, EOMI, conjunctiva normal, no discharge. [] Neck: Normal spontaneous range of motion, no tenderness, supple, no stridor. [] Cardiovascular:Heart rate regular rhythm, no murmur [] Lungs & Thorax: Bilateral breath sounds clear to auscultation [] Abdomen: Bowel sounds normal, soft, no tenderness, no masses, no pulsatile masses. [] Skin: Warm, dry, no erythema, no rash. [] Back: No tenderness, no CVA tenderness. [] Extremities: No tenderness, no cyanosis, no clubbing, ROM intact, no edema. [] Neurologic: Patient appears alert but she is not oriented at all reviewed patient is noncommunicative and unable to follow commands or cooperate. GCS is 9 with unintelligible speech, flexion to pain and spontaneous eye opening., normal motor function, normal sensory function, left-sided weakness suspected chronic baseline with right MCA stroke history [] Psychologic: Noncommunicative Current Patient Data Vital Signs Vital Signs Date Time Temp Pulse Resp B/P (MAP) Pulse Ox O2 Delivery O2 Flow Rate FiO2 11/30/16 23:25 60 137/65 (89) 96 Room Air 11/30/16 21:50 95.8 95.8 11/30/16 19:56 18 Lab Values Laboratory Tests Test 11/30/16 20:00 11/30/16 21:53 White Blood Count 14.7 x10^3/uL (4.0-11.0) H Red Blood Count 3.51 x10^6/uL (3.50-5.40) Hemoglobin 11.1 g/dL (12.0-15.5) L Hematocrit 33.9 % (36.0-47.0) L Mean Corpuscular Volume 97 fL (79-100) Mean Corpuscular Hemoglobin 32 pg (25-35) Mean Corpuscular Hemoglobin Concent 33 g/dL (31-37) Red Cell Distribution Width 16.4 % (11.5-14.5) H Platelet Count 263 x10^3/uL (140-400) Neutrophils (%) (Auto) 79 % (31-73) H Lymphocytes (%) (Auto) 9 % (24-48) L Monocytes (%) (Auto) 11 % (0-9) H Eosinophils (%) (Auto) 1 % (0-3) Basophils (%) (Auto) 0 % (0-3) Neutrophils # (Auto) 11.6 x10^3uL (1.8-7.7) H Lymphocytes # (Auto) 1.3 x10^3/uL (1.0-4.8) Monocytes # (Auto) 1.6 x10^3/uL (0.0-1.1) H Eosinophils # (Auto) 0.1 x10^3/uL (0.0-0.7) Basophils # (Auto) 0.0 x10^3/uL (0.0-0.2) Sodium Level 132 mmol/L (136-145) L Potassium Level 5.7 mmol/L (3.5-5.1) H Chloride Level 96 mmol/L (98-107) L Carbon Dioxide Level 22 mmol/L (21-32) Anion Gap 14 (6-14) Blood Urea Nitrogen 16 mg/dL (7-20) Creatinine 1.0 mg/dL (0.6-1.0) Estimated GFR (Cockcroft-Gault) 54.1 Glucose Level 176 mg/dL (70-99) H Lactic Acid Level 4.5 mmol/L (0.4-2.0) *H Calcium Level 8.2 mg/dL (8.5-10.1) L Troponin I Quantitative < 0.017 ng/mL (0.000-0.055) Thyroid Stimulating Hormone (TSH) 1.430 uIU/mL (0.358-3.74) Urine Collection Type U cath Urine Color Yellow Urine Clarity Clear Urine pH 6.5 Urine Specific [place] 1.020 Urine Protein Negative mg/dL (NEG-TRACE) Urine Glucose (UA) Negative mg/dL (NEG) Urine Ketones (Stick) Negative mg/dL (NEG) Urine Blood Large (NEG) Urine Nitrite Negative (NEG) Urine Bilirubin Negative (NEG) Urine Urobilinogen Dipstick 0.2 mg/dL (0.2 mg/dL) Urine Leukocyte Esterase Moderate (NEG) Urine RBC 6-10 /HPF (0-2) Urine WBC 11-20 /HPF (0-4) Urine Squamous Epithelial Cells Occ /LPF Urine Bacteria Many /HPF (0-FEW) Urine Mucus Slight /LPF Urine Opiates Screen Neg (NEG) Urine Methadone Screen Neg (NEG) Urine Barbiturates Neg (NEG) Urine Phencyclidine Screen Neg (NEG) Urine Amphetamine/Methamphetamine Neg (NEG) Urine Benzodiazepines Screen Neg (NEG) Urine Cocaine Screen Neg (NEG) Urine Cannabinoids Screen Neg (NEG) Urine Ethyl Alcohol Neg (NEG) Laboratory Tests 11/30/16 20:00 Laboratory Tests 11/30/16 20:00 EKG EKG Normal sinus rhythm at 70 bpm normal axis no STEMI [] Radiology/Procedures Radiology/Procedures CT of the head with large area of encephalomalacia right MCA distribution consistent with old CVA. No bleed or fracture. Chest x-ray with chronic changes no acute disease interpreted by nj Course & Med Decision Making Course & Med Decision Making Pertinent Labs and Imaging studies reviewed. (See chart for details) Patient with psychiatric history having expressed suicidal ideation today and then found unresponsive. Patient presenting with no clear toxidrome. Urine drug screen negative. Apparently left-sided weakness the patient is unable to cooperate with neurologic exam given altered mental status. She does have a DNR status which is documented. White blood cell count elevated and respiratory rate at 1.21 consistent with Sirs. Urinalysis positive for infection consistent with sepsis Rocephin administered blood cultures drawn as well as lactate per sepsis protocol. CT of the head with no acute disease specifically no bleed or fracture. Potassium 5.7 without hemolysis. Calcium gluconate administered. She hemodynamically stable on reevaluation. Case discussed with Dr. ronnie Lizama hospitalist on-call is aware of history and findings and agrees with inpatient admission to his service to the ICU for continued care. Patient stable on multiple re-exams. Critical care 75 minutes [] Dragon Disclaimer Dragon Disclaimer This electronic medical record was generated, in whole or in part, using a voice recognition dictation system. Departure Departure Impression: Primary Impression: Altered mental status Additional Impressions: UTI (urinary tract infection) Systemic inflammatory response syndrome (SIRS) Sepsis Suicidal ideation Disposition: ADMITTED INPATIENT Admitting Physician: Kar Resendez Condition: GUARDED Referrals: LEROY ALEMAN (PCP) Problem Qualifiers BUNNY MADRIGAL MD Nov 30, 2016 22:43
[2016-11-30] MEDS ORDERED: CALCIUM GLUCONATE 1,000 MG/10 ML VIAL. IVP ONE (23:30)
[2016-12-01] VITALS (17 sets, daily range): BP systolic 123–180; BP diastolic 43–82
[2016-12-01] MEDS ORDERED: NORMAL SALINE IV ONE ×3 (00:15→00:30)
[2016-12-01] MEDS: IV NORMAL SALINE 1000ML BAG 1,000 ML IV SCH ×4 (02:30→20:04)
[2016-12-01] MEDS ORDERED: GUAI600T47 PO (04:38)
[2016-12-01] MEDS ORDERED: OLAN5TAB9 PO ×2 (04:38)
[2016-12-01] MEDS ORDERED: LOPE2CAP3 PO (04:38)
[2016-12-01] MEDS ORDERED: PANT40TA5 PO (04:38)
[2016-12-01] MEDS ORDERED: CETI10TA16 PO (04:38)
[2016-12-01] MEDS ORDERED: LACT1TAB6 PO (04:38)
[2016-12-01] MEDS ORDERED: BENZ1LOZ48 MM (04:38)
[2016-12-01] MEDS ORDERED: DIVA500T17 PO (04:38)
[2016-12-01] MEDS ORDERED: MAG360OR24 PO (04:38)
[2016-12-01] MEDS ORDERED: QUET50TA5 PO (04:38)
[2016-12-01] MEDS ORDERED: OXYC-323 PO (04:38)
[2016-12-01] MEDS ORDERED: IPRA0.2S5 NEB (04:38)
[2016-12-01] MEDS ORDERED: LISI10TA2 PO (04:38)
[2016-12-01] MEDS ORDERED: ALBU2.5V14 NEB (04:38)
[2016-12-01] MEDS ORDERED: ACET325T9 PO (04:44)
[2016-12-01] MEDS ORDERED: SENN8.6T99 PO (04:44)
--- NOTE | 2016-12-01 07:50 | RAD ---
Examination: Frontal view of the pelvis History: History of right lower extremity shortening Comparison: 09/01/2016 Findings: Lower lumbar fusion is again identified with lumbar levoscoliosis. Surgical hardware identified in the lower lumbar spine and in the left iliac bone grossly similar to prior exam. Old healed fracture of the lateral aspect of the left iliac bone. The bilateral femoral heads are within the acetabula. Moderate joint space loss identified in the bilateral hip joint likely secondary to degeneration. No obvious acute fracture identified. Examination is limited due to positioning. Impression: 1. No acute osseous findings.
--- NOTE | 2016-12-01 08:22 | RAD ---
Examination: Single frontal view the chest. History: History of found unresponsive. Comparison: 06/30/2016. Findings: Examination limited due to positioning. Grossly the cardiomediastinal silhouette appears unremarkable. There is no acute infiltrate or visualized pneumothorax identified. Impression: 1. Limited examination due to positioning. No acute cardiopulmonary findings.
[2016-12-01] MEDS ORDERED: SODIUM POLYSTYRENE SULFONATE 15 GM/60 ML ORAL.SUSP. PO ONE (11:00)
--- NOTE | 2016-12-01 11:05 | PDOC1 ---
History and Physical Date of Admission Date of Admission DATE: 12/01/16 TIME: 11:03 Identification/Chief Complaint Chief Complaint Suicidal ideation Problems: History of Present Illness History of Present Illness Past Medical History: Anxiety, Bipolar, Constipation, Depression, Diabetes- Type II, GERD, High Cholesterol, Hypertension, Hypothyroid, Stroke, Other Additional Past Medical Histor: CHRONIC BACK PAIN, PYSCH HX Past Surgical History: Lumbar Laminectomy, Other Additional Past Surgical Histo: LEFT SHOULDER REPAIR, L hip repair-plate and screws Alcohol Use: None Drug Use: None ED GENERAL TEMPLATE Adult General Chief Complaint Chief Complaint: ALTERED MENTAL STATUS HPI HPI 76-year-old female who lives in psychiatric care setting now sent for evaluation of altered mental status. Patient has a history of anxiety bipolar depression and a prior middle cerebral artery distribution right CVA. At 3 PM patient was last known well and locked herself in the bathroom because she was angry about switching rooms. Apparently patient left a suicide note. As a baseline per staff she is communicative and alert. They described that she does not have access to medications as her medication administration is supervised. Patient was found just prior to arrival in our emergency department in a noncommunicative state. She has been awake but not following commands. No evidence of trauma and staff denies the possibility of overdose or ingestion. Patient does have a DNR status which is documented. Pt seen and examined [facility] Plan is admit with PAT team eval Dictation still broken Total time 31 minutes Past Medical History Cardiovascular: HTN, Hyperlipidemia CENTRAL NERVOUS SYSTEM: CVA Musculoskeletal: low back pain Endocrine: Diabetes, Hypothyroidism Past Surgical History Past Surgical History: Other Family History Family History: No Significant, Hypertension Social History ALCOHOL: none Drugs: Ecstasy Current Problem List Problem List Problems Medical Problems: (1) Altered mental status Status: Acute (2) Sepsis Status: Acute (3) Suicidal ideation Status: Acute (4) Systemic inflammatory response syndrome (SIRS) Status: Acute (5) UTI (urinary tract infection) Status: Acute Problems: Current Medications Current Medications Current Medications Sodium Chloride 1,000 ml @ 100 mls/hr Q10H IV Last administered on 11/30/16 20 :45; Start 11/30/16 at 20:45; Stop 12/01/16 at 03:26; Status DC Sodium Chloride 500 ml @ 500 mls/hr 1X ONCE IV Last administered on 11/30/16 20:59; Start 11/30/16 at 20:45; Stop 11/30/16 at 21:44; Status DC Lorazepam (Ativan) 2 mg STK-MED ONCE .ROUTE ; Start 11/30/16 at 20:40; Stop at 20:41; Status DC Lorazepam (Ativan) 1 mg 1X ONCE IV Last administered on 11/30/16 20:42; Start 11/30/16 at 21:15; Stop 11/30/16 at 21:16; Status DC Lorazepam (Ativan) 1 mg 1X ONCE IV Last administered on 11/30/16 21:20; Start 11/30/16 at 22:00; Stop 11/30/16 at 22:01; Status DC Ceftriaxone Sodium 1 gm/ Sodium Chloride 50 ml @ 100 mls/hr ONCE ONCE IV ; Start 11/30/16 at 22:30; Stop 11/30/16 at 22:59; Status UNV Ceftriaxone Sodium 50 ml @ 100 mls/hr 1X ONCE IV Last administered on 22:43; Start 11/30/16 at 23:00; Stop 11/30/16 at 23:29; Status DC Calcium Gluconate (Calcium Gluconate) 1,000 mg 1X ONCE IVP Last administered on 11/30/16 23:12; Start 11/30/16 at 23:30; Stop 11/30/16 at 23:31; Status DC Sodium Chloride 1,570 ml @ 1,000 mls/hr 1X ONCE IV ; Start 12/01/16 at 00:30; Stop 12/01/16 at 02:04; Status DC Sodium Chloride/ Sodium Chloride 1,570 ml @ 1,000 mls/hr 1X ONCE IV Last administered on 12/01/16 00:04; Start 12/01/16 at 00:15; Stop 12/01/16 at 00:16; Status DC Sodium Chloride 1,570 ml @ 1,000 mls/hr 1X ONCE IV ; Start 12/01/16 at 00:16; Stop 12/01/16 at 01:49; Status DC Sodium Chloride 1,000 ml @ 100 mls/hr Q10H IV Last administered on 12/01/16 02 :30; Start 12/01/16 at 02:30; Stop 12/01/16 at 12:29 Ceftriaxone Sodium 1 gm/ Sodium Chloride 50 ml @ 100 mls/hr QHS IV ; Start 12/01 at 21:00 Sodium Polystyrene Sulfonate (Kayexalate) 15 gm 1X ONCE PO ; Start 12/01/16 at 11:00; Stop 12/01/16 at 11:01; Status DC Active Scripts Active Antibiotic Ointment (Neomy Sulf/Bacitrac Zn/Poly) 28 Gm Oint...g. 28 Gm TP BID Reported Tylenol (Acetaminophen) 325 Mg Tablet 1 Tab PO PRN Q8HRS PRN Senokot (Sennosides) 8.6 Mg Tablet 1 Tab PO BID Seroquel (Quetiapine Fumarate) 50 Mg Tablet 1 Tab PO TID Percocet 5-325 Mg Tablet (Oxycodone/Acetaminophen) 1 Each Tablet 1 Tab PO PRN Q12HR PRN Pantoprazole Sodium 40 Mg Tablet.dr 1 Tab PO DAILY Olanzapine 5 Mg Tablet 0.5 Tab PO PRN Q2HR PRN Olanzapine 5 Mg Tablet 0.5 Tab PO QHS Alum-Mag Hydroxide-Simeth Liq (Mag Hydrox/Al Hydrox/Simeth) 360 Ml Oral.susp 15 Mg PO PRN Q24HRS PRN Mucinex (Guaifenesin) 600 Mg Tablet.er 1 Tab PO BID Anti-Diarrheal (Loperamide Hcl) 2 Mg Capsule 2 Mg PO PRN Q6HRS PRN Lisinopril 10 Mg Tablet 1 Tab PO DAILY Acidophilus (Lactobacillus Acidophilus) 1 Each Tablet 2 Each PO TID Albuterol Sulfate Conc Neb Soln (Albuterol Sulfate) 2.5 Mg/0.5 Ml Vial.neb 1 Vial NEB PRN Q4HRS PRN Ipratropium [place] 0.2 Mg/1 Ml Solution 1 Vial NEB PRN Q4HRS PRN Divalproex Sodium Er (Divalproex Sodium) 500 Mg Tab.er.24h 0.5 Tab PO QHS Cetirizine Hcl 10 Mg Tablet 1 Tab PO DAILY Cepacol Sore Throat Lozenge (Benzocaine/Menthol) 1 Each Lozenge 1 Each MM PRN Q2HR PRN Alprazolam 0.5 Mg Tablet 0.5 Mg PO PRN Q8HRS PRN Acetaminophen 325 Mg Capsule 325 Mg PO PRN Q8HRS PRN Remeron (Mirtazapine) 15 Mg Tablet 1 Tab PO QHS Quetiapine Fumarate 50 Mg Tablet 50 Mg PO TID Quetiapine Fumarate 100 Mg Tablet 100 Mg PO HS Miralax (Polyethylene Glycol 3350) 17 Gm Powd.pack 1 Packet PO DAILY Milk Of Magnesia (Magnesium Hydroxide) 400 Mg/5 Ml Oral.susp 15 Ml PO PRN DAILY PRN Neuro Max (Methyl Salicylate) 85 Gm Gel..gram. 85 Gm TP PRN Q6HRS PRN Folic Acid 1 Mg Tablet 1 Mg PO DAILY Duloxetine Hcl 30 Mg Capsule.dr 30 Mg PO DAILY Buspirone Hcl 15 Mg Tablet 1 Tab PO BID Women's Gentle Laxative (Bisacodyl) 5 Mg Tablet.dr 5 Mg PO PRN DAILY PRN Neurontin (Gabapentin) 300 Mg Capsule 2 Cap PO TID Antioxidant Vitamin (Multivitamin With Minerals) 1 Each Tablet 1 Each PO DAILY Aspirin 81 Mg Tab.chew 1 Tab PO DAILY Levothyroxine Sodium 50 Mcg Tablet 75 Mcg PO DAILY Carvedilol 6.25 Mg Tablet 12.5 Mg PO BID Amlodipine Besylate 5 Mg Tablet 10 Mg PO DAILY Allergies Allergies: Coded Allergies: I S O L A T I O N *CONTACT* (Verified Allergy, Unknown, 09/03/16) mrsa No Known Medication Allergies (Verified Allergy, Unknown, 09/03/16) Vitals Vitals Vital Signs Date Time Temp Pulse Resp B/P (MAP) Pulse Ox O2 Delivery O2 Flow Rate FiO2 12/01/16 10:00 99.2 74 22 132/51 (78) 96 Room Air 99.2 Labs Labs Laboratory Tests Test 11/30/16 20:00 11/30/16 21:53 12/01/16 00:18 White Blood Count 14.7 x10^3/uL (4.0-11.0) Red Blood Count 3.51 x10^6/uL (3.50-5.40) Hemoglobin 11.1 g/dL (12.0-15.5) Hematocrit 33.9 % (36.0-47.0) Mean Corpuscular Volume 97 fL (79-100) Mean Corpuscular Hemoglobin 32 pg (25-35) Mean Corpuscular Hemoglobin Concent 33 g/dL (31-37) Red Cell Distribution Width 16.4 % (11.5-14.5) Platelet Count 263 x10^3/uL (140-400) Neutrophils (%) (Auto) 79 % (31-73) Lymphocytes (%) (Auto) 9 % (24-48) Monocytes (%) (Auto) 11 % (0-9) Eosinophils (%) (Auto) 1 % (0-3) Basophils (%) (Auto) 0 % (0-3) Neutrophils # (Auto) 11.6 x10^3uL (1.8-7.7) Lymphocytes # (Auto) 1.3 x10^3/uL (1.0-4.8) Monocytes # (Auto) 1.6 x10^3/uL (0.0-1.1) Eosinophils # (Auto) 0.1 x10^3/uL (0.0-0.7) Basophils # (Auto) 0.0 x10^3/uL (0.0-0.2) Sodium Level 132 mmol/L (136-145) Potassium Level 5.7 mmol/L (3.5-5.1) Chloride Level 96 mmol/L (98-107) Carbon Dioxide Level 22 mmol/L (21-32) Anion Gap 14 (6-14) Blood Urea Nitrogen 16 mg/dL (7-20) Creatinine 1.0 mg/dL (0.6-1.0) Estimated GFR (Cockcroft-Gault) 54.1 Glucose Level 176 mg/dL (70-99) Lactic Acid Level 4.5 mmol/L (0.4-2.0) 1.8 mmol/L (0.4-2.0) Calcium Level 8.2 mg/dL (8.5-10.1) Troponin I Quantitative < 0.017 ng/mL (0.000-0.055) Procalcitonin < 0.10 ng/mL (0.00-0.10) Thyroid Stimulating Hormone (TSH) 1.430 uIU/mL (0.358-3.74) Urine Collection Type U cath Urine Color Yellow Urine Clarity Clear Urine pH 6.5 Urine Specific [place] 1.020 Urine Protein Negative mg/dL (NEG-TRACE) Urine Glucose (UA) Negative mg/dL (NEG) Urine Ketones (Stick) Negative mg/dL (NEG) Urine Blood Large (NEG) Urine Nitrite Negative (NEG) Urine Bilirubin Negative (NEG) Urine Urobilinogen Dipstick 0.2 mg/dL (0.2 mg/dL) Urine Leukocyte Esterase Moderate (NEG) Urine RBC 6-10 /HPF (0-2) Urine WBC 11-20 /HPF (0-4) Urine Squamous Epithelial Cells Occ /LPF Urine Bacteria Many /HPF (0-FEW) Urine Mucus Slight /LPF Urine Opiates Screen Neg (NEG) Urine Methadone Screen Neg (NEG) Urine Barbiturates Neg (NEG) Urine Phencyclidine Screen Neg (NEG) Urine Amphetamine/Methamphetamine Neg (NEG) Urine Benzodiazepines Screen Neg (NEG) Urine Cocaine Screen Neg (NEG) Urine Cannabinoids Screen Neg (NEG) Urine Ethyl Alcohol Neg (NEG) Laboratory Tests Test 11/30/16 20:00 11/30/16 21:53 12/01/16 00:18 White Blood Count 14.7 x10^3/uL (4.0-11.0) Red Blood Count 3.51 x10^6/uL (3.50-5.40) Hemoglobin 11.1 g/dL (12.0-15.5) Hematocrit 33.9 % (36.0-47.0) Mean Corpuscular Volume 97 fL (79-100) Mean Corpuscular Hemoglobin 32 pg (25-35) Mean Corpuscular Hemoglobin Concent 33 g/dL (31-37) Red Cell Distribution Width 16.4 % (11.5-14.5) Platelet Count 263 x10^3/uL (140-400) Neutrophils (%) (Auto) 79 % (31-73) Lymphocytes (%) (Auto) 9 % (24-48) Monocytes (%) (Auto) 11 % (0-9) Eosinophils (%) (Auto) 1 % (0-3) Basophils (%) (Auto) 0 % (0-3) Neutrophils # (Auto) 11.6 x10^3uL (1.8-7.7) Lymphocytes # (Auto) 1.3 x10^3/uL (1.0-4.8) Monocytes # (Auto) 1.6 x10^3/uL (0.0-1.1) Eosinophils # (Auto) 0.1 x10^3/uL (0.0-0.7) Basophils # (Auto) 0.0 x10^3/uL (0.0-0.2) Sodium Level 132 mmol/L (136-145) Potassium Level 5.7 mmol/L (3.5-5.1) Chloride Level 96 mmol/L (98-107) Carbon Dioxide Level 22 mmol/L (21-32) Anion Gap 14 (6-14) Blood Urea Nitrogen 16 mg/dL (7-20) Creatinine 1.0 mg/dL (0.6-1.0) Estimated GFR (Cockcroft-Gault) 54.1 Glucose Level 176 mg/dL (70-99) Lactic Acid Level 4.5 mmol/L (0.4-2.0) 1.8 mmol/L (0.4-2.0) Calcium Level 8.2 mg/dL (8.5-10.1) Troponin I Quantitative < 0.017 ng/mL (0.000-0.055) Procalcitonin < 0.10 ng/mL (0.00-0.10) Thyroid Stimulating Hormone (TSH) 1.430 uIU/mL (0.358-3.74) Urine Collection Type U cath Urine Color Yellow Urine Clarity Clear Urine pH 6.5 Urine Specific [place] 1.020 Urine Protein Negative mg/dL (NEG-TRACE) Urine Glucose (UA) Negative mg/dL (NEG) Urine Ketones (Stick) Negative mg/dL (NEG) Urine Blood Large (NEG) Urine Nitrite Negative (NEG) Urine Bilirubin Negative (NEG) Urine Urobilinogen Dipstick 0.2 mg/dL (0.2 mg/dL) Urine Leukocyte Esterase Moderate (NEG) Urine RBC 6-10 /HPF (0-2) Urine WBC 11-20 /HPF (0-4) Urine Squamous Epithelial Cells Occ /LPF Urine Bacteria Many /HPF (0-FEW) Urine Mucus Slight /LPF Urine Opiates Screen Neg (NEG) Urine Methadone Screen Neg (NEG) Urine Barbiturates Neg (NEG) Urine Phencyclidine Screen Neg (NEG) Urine Amphetamine/Methamphetamine Neg (NEG) Urine Benzodiazepines Screen Neg (NEG) Urine Cocaine Screen Neg (NEG) Urine Cannabinoids Screen Neg (NEG) Urine Ethyl Alcohol Neg (NEG) VTE Prophylaxis Ordered VTE Prophylaxis Devices: Yes VTE Pharmacological Prophylaxi: Yes CHERYL ARORA III DO Dec 01, 2016 11:05
--- NOTE | 2016-12-01 11:37 | EKG ---
[facility] [address] [place] [id number] Test Date: 2016-11-30 Test Time: 19:57:57 Pat Name: JESSICA MULLER Department: Room: Gender: F Repairer Handtools: : 1940 Requested By: BUNNY MADRIGAL Order Number: [id number] Reading MD: Measurements Intervals [place] Rate: 70 P: GA: QRS: 62 QRSD: 110 T: 27 QT: 428 QTc: 465 Interpretive Statements ATRIAL FLUTTER QRS(T) CONTOUR ABNORMALITY CONSIDER ANTEROSEPTAL MYOCARDIAL DAMAGE RI6.01 Unconfirmed report No previous ECG available for comparison
--- NOTE | 2016-12-01 11:45 | PDOC2 ---
NEUROLOGY CONSULT Date of Admission Date of Admission DATE: 12/01/16 TIME: 11:29 Reason for Consult Reason for Consult: Altered mental status, evaluate for stroke Iman Gordon is a pleasant 76-year-old woman that I'm asked to see in consultation for evaluation of altered mental status. She has been residing in a psychiatric facility for rehabilitation for the last year. She apparently had gone to the bathroom and locked the door. She became unresponsive. She was not found to have suffered any trauma or incontinence. She left a suicide note so there is concern she may have been wanting to commit suicide. She's had severe depression but denies bipolar disorder. I took care of her until he in 2013. She's had a rough go of it since 2013 when he . She remembers me very clearly and was glad to see me. 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 She has recovered a great deal of functioning. She normally is alert and quite communicative and appears to be back to this baseline. I'm asked to evaluate for the altered mental status and to determine if there is a new stroke. 1. Depression and anxiety 2. Chronic constipation 3. Diabetes type 2 4. Gastroesophageal reflux disease 5. Hyperlipidemia 6. Hypertension 7. Hypothyroidism 8. History of strokes with the largest in the right hemisphere 9. Left shoulder repair 10. Lumbar laminectomy and chronic lower back pain 11. Left hip repair Referring Physician Referring Physician: Roger Jara Current Medications Current Medications Current Medications Sodium Chloride 1,000 ml @ 100 mls/hr Q10H IV Last administered on 11/30/16 20 :45; Start 11/30/16 at 20:45; Stop 12/01/16 at 03:26; Status DC Sodium Chloride 500 ml @ 500 mls/hr 1X ONCE IV Last administered on 11/30/16 20:59; Start 11/30/16 at 20:45; Stop 11/30/16 at 21:44; Status DC Lorazepam (Ativan) 2 mg STK-MED ONCE .ROUTE ; Start 11/30/16 at 20:40; Stop at 20:41; Status DC Lorazepam (Ativan) 1 mg 1X ONCE IV Last administered on 11/30/16 20:42; Start 11/30/16 at 21:15; Stop 11/30/16 at 21:16; Status DC Lorazepam (Ativan) 1 mg 1X ONCE IV Last administered on 11/30/16 21:20; Start 11/30/16 at 22:00; Stop 11/30/16 at 22:01; Status DC Ceftriaxone Sodium 1 gm/ Sodium Chloride 50 ml @ 100 mls/hr ONCE ONCE IV ; Start 11/30/16 at 22:30; Stop 11/30/16 at 22:59; Status UNV Ceftriaxone Sodium 50 ml @ 100 mls/hr 1X ONCE IV Last administered on 22:43; Start 11/30/16 at 23:00; Stop 11/30/16 at 23:29; Status DC Calcium Gluconate (Calcium Gluconate) 1,000 mg 1X ONCE IVP Last administered on 11/30/16 23:12; Start 11/30/16 at 23:30; Stop 11/30/16 at 23:31; Status DC Sodium Chloride 1,570 ml @ 1,000 mls/hr 1X ONCE IV ; Start 12/01/16 at 00:30; Stop 12/01/16 at 02:04; Status DC Sodium Chloride/ Sodium Chloride 1,570 ml @ 1,000 mls/hr 1X ONCE IV Last administered on 12/01/16 00:04; Start 12/01/16 at 00:15; Stop 12/01/16 at 00:16; Status DC Sodium Chloride 1,570 ml @ 1,000 mls/hr 1X ONCE IV ; Start 12/01/16 at 00:16; Stop 12/01/16 at 01:49; Status DC Sodium Chloride 1,000 ml @ 100 mls/hr Q10H IV Last administered on 12/01/16 02 :30; Start 12/01/16 at 02:30; Stop 12/01/16 at 12:29 Ceftriaxone Sodium 1 gm/ Sodium Chloride 50 ml @ 100 mls/hr QHS IV ; Start 12/01 at 21:00 Sodium Polystyrene Sulfonate (Kayexalate) 15 gm 1X ONCE PO Last administered on 12/01/16 11:20; Start 12/01/16 at 11:00; Stop 12/01/16 at 11:01; Status DC Active Scripts Active Antibiotic Ointment (Neomy Sulf/Bacitrac Zn/Poly) 28 Gm Oint...g. 28 Gm TP BID Reported Tylenol (Acetaminophen) 325 Mg Tablet 1 Tab PO PRN Q8HRS PRN Senokot (Sennosides) 8.6 Mg Tablet 1 Tab PO BID Seroquel (Quetiapine Fumarate) 50 Mg Tablet 1 Tab PO TID Percocet 5-325 Mg Tablet (Oxycodone/Acetaminophen) 1 Each Tablet 1 Tab PO PRN Q12HR PRN Pantoprazole Sodium 40 Mg Tablet.dr 1 Tab PO DAILY Olanzapine 5 Mg Tablet 0.5 Tab PO PRN Q2HR PRN Olanzapine 5 Mg Tablet 0.5 Tab PO QHS Alum-Mag Hydroxide-Simeth Liq (Mag Hydrox/Al Hydrox/Simeth) 360 Ml Oral.susp 15 Mg PO PRN Q24HRS PRN Mucinex (Guaifenesin) 600 Mg Tablet.er 1 Tab PO BID Anti-Diarrheal (Loperamide Hcl) 2 Mg Capsule 2 Mg PO PRN Q6HRS PRN Lisinopril 10 Mg Tablet 1 Tab PO DAILY Acidophilus (Lactobacillus Acidophilus) 1 Each Tablet 2 Each PO TID Albuterol Sulfate Conc Neb Soln (Albuterol Sulfate) 2.5 Mg/0.5 Ml Vial.neb 1 Vial NEB PRN Q4HRS PRN Ipratropium [place] 0.2 Mg/1 Ml Solution 1 Vial NEB PRN Q4HRS PRN Divalproex Sodium Er (Divalproex Sodium) 500 Mg Tab.er.24h 0.5 Tab PO QHS Cetirizine Hcl 10 Mg Tablet 1 Tab PO DAILY Cepacol Sore Throat Lozenge (Benzocaine/Menthol) 1 Each Lozenge 1 Each MM PRN Q2HR PRN Alprazolam 0.5 Mg Tablet 0.5 Mg PO PRN Q8HRS PRN Acetaminophen 325 Mg Capsule 325 Mg PO PRN Q8HRS PRN Remeron (Mirtazapine) 15 Mg Tablet 1 Tab PO QHS Quetiapine Fumarate 50 Mg Tablet 50 Mg PO TID Quetiapine Fumarate 100 Mg Tablet 100 Mg PO HS Miralax (Polyethylene Glycol 3350) 17 Gm Powd.pack 1 Packet PO DAILY Milk Of Magnesia (Magnesium Hydroxide) 400 Mg/5 Ml Oral.susp 15 Ml PO PRN DAILY PRN Neuro Max (Methyl Salicylate) 85 Gm Gel..gram. 85 Gm TP PRN Q6HRS PRN Folic Acid 1 Mg Tablet 1 Mg PO DAILY Duloxetine Hcl 30 Mg Capsule.dr 30 Mg PO DAILY Buspirone Hcl 15 Mg Tablet 1 Tab PO BID Women's Gentle Laxative (Bisacodyl) 5 Mg Tablet.dr 5 Mg PO PRN DAILY PRN Neurontin (Gabapentin) 300 Mg Capsule 2 Cap PO TID Antioxidant Vitamin (Multivitamin With Minerals) 1 Each Tablet 1 Each PO DAILY Aspirin 81 Mg Tab.chew 1 Tab PO DAILY Levothyroxine Sodium 50 Mcg Tablet 75 Mcg PO DAILY Carvedilol 6.25 Mg Tablet 12.5 Mg PO BID Amlodipine Besylate 5 Mg Tablet 10 Mg PO DAILY Allergies Allergies: Coded Allergies: I S O L A T I O N *CONTACT* (Verified Allergy, Unknown, 09/03/16) mrsa No Known Medication Allergies (Verified Allergy, Unknown, 09/03/16) ROS Review of System She does not complain of any headache. She does not have a visual change. There' s been no loss of hearing. She's been able to speak and understand. She's had no trouble with swallowing. She has not had shortness of breath, chest or abdominal pain. She does not have any bone or joint pain. There's been no fever or rash. She does have chronic constipation. She's not had any genitourinary complaints. She does not complain of numbness. She has chronic weakness on the left side. She uses a walker to get around. She does have psychiatric complaints with depression. She denies bipolar disorder. She has not had bruising, bleeding or swelling. Physical Exam Physical Examination She was alert, awake and cooperative. Speech was fluent and clear. She had a good fund of recent and remote knowledge. Attention and concentration was intact. She was well groomed and well-nourished. She was fully oriented. Examination of the cranial nerves revealed visual [place] were full to confrontation. Extraocular movements were intact. The eyes were conjugate. Pursuit movements were smooth and saccadic eye movements were without dysmetria. Pupils were [default value] millimeters and reacted. Funduscopic exam did not reveal papilledema, exudate or hemorrhage. There was no afferent pupillary defect. Facial sensation was intact. The muscles of mastication and facial expression were powerful symmetrically. Hearing was intact to finger rub. The palate arch symmetrically and the tongue was midline with full range of motion. Sternocleidomastoid and trapezius were powerful. Muscle bulk and tone was normal. There was no arm drift or abnormal movements. The power was full and symmetric in the upper and lower extremities except for left hemiparesis affecting the arm more than the leg with power 4+/5. Reflexes were 2 /4 and symmetric in the upper and lower extremities. The toes were downgoing bilaterally. Coordination testing with finger to nose, [id number], fine motor and rapid alternating movements was well performed on the right but less well on the left. The sensory examination was intact to pain, light touch, proprioception, graphesthesia, cold thermal and vibration. There was no extinction to double simultaneous stimulation. The gait was not testable. Auscultation of the carotid arteries did not reveal a bruit. Heart rhythm was regular without a murmur. Peripheral pulses were 2/4 at the wrists and feet. There was no edema or cyanosis. Vitals VITALS Vital Signs Date Time Temp Pulse Resp B/P (MAP) Pulse Ox O2 Delivery O2 Flow Rate FiO2 12/01/16 11:00 74 20 146/52 (83) 97 Room Air 12/01/16 10:00 99.2 99.2 Labs Labs Laboratory Tests Test 11/30/16 20:00 11/30/16 21:53 12/01/16 00:18 White Blood Count 14.7 x10^3/uL (4.0-11.0) Red Blood Count 3.51 x10^6/uL (3.50-5.40) Hemoglobin 11.1 g/dL (12.0-15.5) Hematocrit 33.9 % (36.0-47.0) Mean Corpuscular Volume 97 fL (79-100) Mean Corpuscular Hemoglobin 32 pg (25-35) Mean Corpuscular Hemoglobin Concent 33 g/dL (31-37) Red Cell Distribution Width 16.4 % (11.5-14.5) Platelet Count 263 x10^3/uL (140-400) Neutrophils (%) (Auto) 79 % (31-73) Lymphocytes (%) (Auto) 9 % (24-48) Monocytes (%) (Auto) 11 % (0-9) Eosinophils (%) (Auto) 1 % (0-3) Basophils (%) (Auto) 0 % (0-3) Neutrophils # (Auto) 11.6 x10^3uL (1.8-7.7) Lymphocytes # (Auto) 1.3 x10^3/uL (1.0-4.8) Monocytes # (Auto) 1.6 x10^3/uL (0.0-1.1) Eosinophils # (Auto) 0.1 x10^3/uL (0.0-0.7) Basophils # (Auto) 0.0 x10^3/uL (0.0-0.2) Sodium Level 132 mmol/L (136-145) Potassium Level 5.7 mmol/L (3.5-5.1) Chloride Level 96 mmol/L (98-107) Carbon Dioxide Level 22 mmol/L (21-32) Anion Gap 14 (6-14) Blood Urea Nitrogen 16 mg/dL (7-20) Creatinine 1.0 mg/dL (0.6-1.0) Estimated GFR (Cockcroft-Gault) 54.1 Glucose Level 176 mg/dL (70-99) Lactic Acid Level 4.5 mmol/L (0.4-2.0) 1.8 mmol/L (0.4-2.0) Calcium Level 8.2 mg/dL (8.5-10.1) Troponin I Quantitative < 0.017 ng/mL (0.000-0.055) Procalcitonin < 0.10 ng/mL (0.00-0.10) Thyroid Stimulating Hormone (TSH) 1.430 uIU/mL (0.358-3.74) Urine Collection Type U cath Urine Color Yellow Urine Clarity Clear Urine pH 6.5 Urine Specific Mclean 1.020 Urine Protein Negative mg/dL (NEG-TRACE) Urine Glucose (UA) Negative mg/dL (NEG) Urine Ketones (Stick) Negative mg/dL (NEG) Urine Blood Large (NEG) Urine Nitrite Negative (NEG) Urine Bilirubin Negative (NEG) Urine Urobilinogen Dipstick 0.2 mg/dL (0.2 mg/dL) Urine Leukocyte Esterase Moderate (NEG) Urine RBC 6-10 /HPF (0-2) Urine WBC 11-20 /HPF (0-4) Urine Squamous Epithelial Cells Occ /LPF Urine Bacteria Many /HPF (0-FEW) Urine Mucus Slight /LPF Urine Opiates Screen Neg (NEG) Urine Methadone Screen Neg (NEG) Urine Barbiturates Neg (NEG) Urine Phencyclidine Screen Neg (NEG) Urine Amphetamine/Methamphetamine Neg (NEG) Urine Benzodiazepines Screen Neg (NEG) Urine Cocaine Screen Neg (NEG) Urine Cannabinoids Screen Neg (NEG) Urine Ethyl Alcohol Neg (NEG) Laboratory Tests Test 11/30/16 20:00 11/30/16 21:53 12/01/16 00:18 White Blood Count 14.7 x10^3/uL (4.0-11.0) Red Blood Count 3.51 x10^6/uL (3.50-5.40) Hemoglobin 11.1 g/dL (12.0-15.5) Hematocrit 33.9 % (36.0-47.0) Mean Corpuscular Volume 97 fL (79-100) Mean Corpuscular Hemoglobin 32 pg (25-35) Mean Corpuscular Hemoglobin Concent 33 g/dL (31-37) Red Cell Distribution Width 16.4 % (11.5-14.5) Platelet Count 263 x10^3/uL (140-400) Neutrophils (%) (Auto) 79 % (31-73) Lymphocytes (%) (Auto) 9 % (24-48) Monocytes (%) (Auto) 11 % (0-9) Eosinophils (%) (Auto) 1 % (0-3) Basophils (%) (Auto) 0 % (0-3) Neutrophils # (Auto) 11.6 x10^3uL (1.8-7.7) Lymphocytes # (Auto) 1.3 x10^3/uL (1.0-4.8) Monocytes # (Auto) 1.6 x10^3/uL (0.0-1.1) Eosinophils # (Auto) 0.1 x10^3/uL (0.0-0.7) Basophils # (Auto) 0.0 x10^3/uL (0.0-0.2) Sodium Level 132 mmol/L (136-145) Potassium Level 5.7 mmol/L (3.5-5.1) Chloride Level 96 mmol/L (98-107) Carbon Dioxide Level 22 mmol/L (21-32) Anion Gap 14 (6-14) Blood Urea Nitrogen 16 mg/dL (7-20) Creatinine 1.0 mg/dL (0.6-1.0) Estimated GFR (Cockcroft-Gault) 54.1 Glucose Level 176 mg/dL (70-99) Lactic Acid Level 4.5 mmol/L (0.4-2.0) 1.8 mmol/L (0.4-2.0) Calcium Level 8.2 mg/dL (8.5-10.1) Troponin I Quantitative < 0.017 ng/mL (0.000-0.055) Procalcitonin < 0.10 ng/mL (0.00-0.10) Thyroid Stimulating Hormone (TSH) 1.430 uIU/mL (0.358-3.74) Urine Collection Type U cath Urine Color Yellow Urine Clarity Clear Urine pH 6.5 Urine Specific Mclean 1.020 Urine Protein Negative mg/dL (NEG-TRACE) Urine Glucose (UA) Negative mg/dL (NEG) Urine Ketones (Stick) Negative mg/dL (NEG) Urine Blood Large (NEG) Urine Nitrite Negative (NEG) Urine Bilirubin Negative (NEG) Urine Urobilinogen Dipstick 0.2 mg/dL (0.2 mg/dL) Urine Leukocyte Esterase Moderate (NEG) Urine RBC 6-10 /HPF (0-2) Urine WBC 11-20 /HPF (0-4) Urine Squamous Epithelial Cells Occ /LPF Urine Bacteria Many /HPF (0-FEW) Urine Mucus Slight /LPF Urine Opiates Screen Neg (NEG) Urine Methadone Screen Neg (NEG) Urine Barbiturates Neg (NEG) Urine Phencyclidine Screen Neg (NEG) Urine Amphetamine/Methamphetamine Neg (NEG) Urine Benzodiazepines Screen Neg (NEG) Urine Cocaine Screen Neg (NEG) Urine Cannabinoids Screen Neg (NEG) Urine Ethyl Alcohol Neg (NEG) Assessment/Plan Assessment/Plan Iman Gordon is a pleasant 76-year-old woman who had a decline in her responsiveness while walking herself in the bathroom. In review of labs she did initially have an elevated lactic acid. The cause of this is not clear but could potentially have been seizure. She has no trauma or tongue biting to suggest seizure and none was witnessed. A follow-up lactic acid returned to normal. I am not compelled to initiate an anticonvulsant unless she clearly has recurrent seizure. She seems back to her usual self at this time. Urinalysis did reveal evidence for urinary tract infection which may have contributed to encephalopathy. She has received a dosage of ceftriaxone. Urine culture is pending at this time. She has a residual left hemiparesis from a remote right hemispheric stroke. I do not see any neurologic evidence that would suggest a new stroke. She is in the intensive care unit with one-on-one observation out of concern for a suicidal gesture. She does admit to feeling depressed but denies other psychiatric illness. She reports that she is having significant adverse effects from the other psychotropic medications that have been administered. She may need adjustment of her psychotropics to avoid adverse effects. I appreciate being involved in her care. Please reconsult neurology if we may be of further service. MICHELLE DE SOUZA MD Dec 01, 2016 11:45
[2016-12-01] MEDS: LORazepam 1 MG TABLET PO PRN (20:05)
[2016-12-01] MEDS ORDERED: TEMAZEPAM 15 MG CAPSULE PO PRN (23:15)
[2016-12-02 03:00] VITALS: BP 175/71
[2016-12-02] MEDS: LORazepam 1 MG TABLET PO PRN ×3 (03:07→23:02)
[2016-12-02] MEDS: IV NORMAL SALINE 1000ML BAG 1,000 ML IV SCH ×2 (06:21→15:57)
[2016-12-02 06:58] LABS: CALCIUM 8.1 mg/dL (8.5-10.1); CREATININE 0.8 mg/dL (0.6-1.0); GFR 69.9; POTASSIUM 3.2 mmol/L (3.5-5.1)
[2016-12-02 07:04] LABS: BASO % 1 % (0-3); EOS % 1 % (0-3); HEMATOCRIT 32.4 % (36.0-47.0); HEMOGLOBIN 10.8 g/dL (12.0-15.5); LYMPH # 1.5 x10^3/uL (1.0-4.8); LYMPH % 18 % (24-48); MEAN CORPUSCULAR HEMOGLOBIN 32 pg (25-35); MEAN CORPUSCULAR HGB CONC 34 g/dL (31-37); MEAN CORPUSCULAR VOLUME 96 fL (79-100); MONO % 9 % (0-9); NEUT % 72 % (31-73); PLATELET COUNT 236 x10^3/uL (140-400); RED BLOOD COUNT 3.37 x10^6/uL (3.50-5.40); RED CELL DISTRIBUTION WIDTH 17.1 % (11.5-14.5); WHITE BLOOD COUNT 8.3 x10^3/uL (4.0-11.0)
[2016-12-02 07:50] VITALS: BP 174/77
[2016-12-02] MEDS: hydrALAZINE 20 MG/ML VIAL. IVP PRN ×2 (08:29→22:15)
[2016-12-02] MEDS ORDERED: oxyCODONE/APAP 5/325 1 TAB TABLET PO PRN (08:30)
[2016-12-02 11:00] VITALS: BP 148/48
[2016-12-02] MEDS: DULoxetine HCL 30 MG CAPSULE.DR PO SCH (13:17)
[2016-12-02] MEDS: LEVOTHYROXINE 75 MCG TABLET PO SCH (13:17)
[2016-12-02] MEDS: FOLIC ACID 1 MG TABLET. PO SCH (13:17)
[2016-12-02] MEDS: LISINOPRIL 10 MG TABLET PO SCH (13:18)
[2016-12-02] MEDS: amLODIPine BESYLATE 10 MG TABLET PO SCH (13:18)
[2016-12-02] MEDS: CARVEDILOL 12.5 MG TABLET. PO SCH ×2 (13:19→15:56)
--- NOTE | 2016-12-02 14:35 | PDOC ---
PROGRESS NOTES Chief Complaint Chief Complaint Chief complaint altered mental status #1 altered mental status, resolved #2 questionable suicidal ideations, patient denies any active suicidal or homicidal ideations at this time. #3. Agitation, episodic: I will resume some of her psychotropic medications. #4 hypertension continue current home medications were resumed. Physical therapy occupational therapy. #5 possible urinary tract infection currently on ceftriaxone, labs and records reviewed Vitals Vitals Vital Signs Date Time Temp Pulse Resp B/P (MAP) Pulse Ox O2 Delivery O2 Flow Rate FiO2 12/02/16 13:19 93 170/61 12/02/16 11:00 98.6 24 98 Room Air 98.6 Physical Exam General: Alert, Oriented X3 Heart: Normal S1 Lungs: Clear, Other Abdomen: Normal bowel sounds Extremities: No clubbing Labs LABS Laboratory Tests Test 12/02/16 05:45 White Blood Count 8.3 x10^3/uL (4.0-11.0) Red Blood Count 3.37 x10^6/uL (3.50-5.40) Hemoglobin 10.8 g/dL (12.0-15.5) Hematocrit 32.4 % (36.0-47.0) Mean Corpuscular Volume 96 fL (79-100) Mean Corpuscular Hemoglobin 32 pg (25-35) Mean Corpuscular Hemoglobin Concent 34 g/dL (31-37) Red Cell Distribution Width 17.1 % (11.5-14.5) Platelet Count 236 x10^3/uL (140-400) Neutrophils (%) (Auto) 72 % (31-73) Lymphocytes (%) (Auto) 18 % (24-48) Monocytes (%) (Auto) 9 % (0-9) Eosinophils (%) (Auto) 1 % (0-3) Basophils (%) (Auto) 1 % (0-3) Neutrophils # (Auto) 6.0 x10^3uL (1.8-7.7) Lymphocytes # (Auto) 1.5 x10^3/uL (1.0-4.8) Monocytes # (Auto) 0.7 x10^3/uL (0.0-1.1) Eosinophils # (Auto) 0.1 x10^3/uL (0.0-0.7) Basophils # (Auto) 0.0 x10^3/uL (0.0-0.2) Sodium Level 141 mmol/L (136-145) Potassium Level 3.2 mmol/L (3.5-5.1) Chloride Level 107 mmol/L (98-107) Carbon Dioxide Level 22 mmol/L (21-32) Anion Gap 12 (6-14) Blood Urea Nitrogen 15 mg/dL (7-20) Creatinine 0.8 mg/dL (0.6-1.0) Estimated GFR (Cockcroft-Gault) 69.9 Glucose Level 90 mg/dL (70-99) Calcium Level 8.1 mg/dL (8.5-10.1) Assessment and Plan Assessmemt and Plan Problems Medical Problems: (1) Altered mental status Status: Acute (2) Sepsis Status: Acute (3) Suicidal ideation Status: Acute (4) Systemic inflammatory response syndrome (SIRS) Status: Acute (5) UTI (urinary tract infection) Status: Acute Problems: Comment Review of Relevant I have reviewed the following items camacho (where applicable) has been applied. Labs Laboratory Tests Test 11/30/16 20:00 11/30/16 21:53 12/01/16 00:18 12/01/16 02:20 White Blood Count 14.7 x10^3/uL (4.0-11.0) Red Blood Count 3.51 x10^6/uL (3.50-5.40) Hemoglobin 11.1 g/dL (12.0-15.5) Hematocrit 33.9 % (36.0-47.0) Mean Corpuscular Volume 97 fL (79-100) Mean Corpuscular Hemoglobin 32 pg (25-35) Mean Corpuscular Hemoglobin Concent 33 g/dL (31-37) Red Cell Distribution Width 16.4 % (11.5-14.5) Platelet Count 263 x10^3/uL (140-400) Neutrophils (%) (Auto) 79 % (31-73) Lymphocytes (%) (Auto) 9 % (24-48) Monocytes (%) (Auto) 11 % (0-9) Eosinophils (%) (Auto) 1 % (0-3) Basophils (%) (Auto) 0 % (0-3) Neutrophils # (Auto) 11.6 x10^3uL (1.8-7.7) Lymphocytes # (Auto) 1.3 x10^3/uL (1.0-4.8) Monocytes # (Auto) 1.6 x10^3/uL (0.0-1.1) Eosinophils # (Auto) 0.1 x10^3/uL (0.0-0.7) Basophils # (Auto) 0.0 x10^3/uL (0.0-0.2) Sodium Level 132 mmol/L (136-145) Potassium Level 5.7 mmol/L (3.5-5.1) Chloride Level 96 mmol/L (98-107) Carbon Dioxide Level 22 mmol/L (21-32) Anion Gap 14 (6-14) Blood Urea Nitrogen 16 mg/dL (7-20) Creatinine 1.0 mg/dL (0.6-1.0) Estimated GFR (Cockcroft-Gault) 54.1 Glucose Level 176 mg/dL (70-99) Lactic Acid Level 4.5 mmol/L (0.4-2.0) 1.8 mmol/L (0.4-2.0) Calcium Level 8.2 mg/dL (8.5-10.1) Troponin I Quantitative < 0.017 ng/mL (0.000-0.055) Procalcitonin < 0.10 ng/mL (0.00-0.10) Thyroid Stimulating Hormone (TSH) 1.430 uIU/mL (0.358-3.74) Urine Collection Type U cath Urine Color Yellow Urine Clarity Clear Urine pH 6.5 Urine Specific [place] 1.020 Urine Protein Negative mg/dL (NEG-TRACE) Urine Glucose (UA) Negative mg/dL (NEG) Urine Ketones (Stick) Negative mg/dL (NEG) Urine Blood Large (NEG) Urine Nitrite Negative (NEG) Urine Bilirubin Negative (NEG) Urine Urobilinogen Dipstick 0.2 mg/dL (0.2 mg/dL) Urine Leukocyte Esterase Moderate (NEG) Urine RBC 6-10 /HPF (0-2) Urine WBC 11-20 /HPF (0-4) Urine Squamous Epithelial Cells Occ /LPF Urine Bacteria Many /HPF (0-FEW) Urine Mucus Slight /LPF Urine Opiates Screen Neg (NEG) Urine Methadone Screen Neg (NEG) Urine Barbiturates Neg (NEG) Urine Phencyclidine Screen Neg (NEG) Urine Amphetamine/Methamphetamine Neg (NEG) Urine Benzodiazepines Screen Neg (NEG) Urine Cocaine Screen Neg (NEG) Urine Cannabinoids Screen Neg (NEG) Urine Ethyl Alcohol Neg (NEG) Nasal Screen MRSA (PCR) Negative (Negative) Test 12/02/16 05:45 White Blood Count 8.3 x10^3/uL (4.0-11.0) Red Blood Count 3.37 x10^6/uL (3.50-5.40) Hemoglobin 10.8 g/dL (12.0-15.5) Hematocrit 32.4 % (36.0-47.0) Mean Corpuscular Volume 96 fL (79-100) Mean Corpuscular Hemoglobin 32 pg (25-35) Mean Corpuscular Hemoglobin Concent 34 g/dL (31-37) Red Cell Distribution Width 17.1 % (11.5-14.5) Platelet Count 236 x10^3/uL (140-400) Neutrophils (%) (Auto) 72 % (31-73) Lymphocytes (%) (Auto) 18 % (24-48) Monocytes (%) (Auto) 9 % (0-9) Eosinophils (%) (Auto) 1 % (0-3) Basophils (%) (Auto) 1 % (0-3) Neutrophils # (Auto) 6.0 x10^3uL (1.8-7.7) Lymphocytes # (Auto) 1.5 x10^3/uL (1.0-4.8) Monocytes # (Auto) 0.7 x10^3/uL (0.0-1.1) Eosinophils # (Auto) 0.1 x10^3/uL (0.0-0.7) Basophils # (Auto) 0.0 x10^3/uL (0.0-0.2) Sodium Level 141 mmol/L (136-145) Potassium Level 3.2 mmol/L (3.5-5.1) Chloride Level 107 mmol/L (98-107) Carbon Dioxide Level 22 mmol/L (21-32) Anion Gap 12 (6-14) Blood Urea Nitrogen 15 mg/dL (7-20) Creatinine 0.8 mg/dL (0.6-1.0) Estimated GFR (Cockcroft-Gault) 69.9 Glucose Level 90 mg/dL (70-99) Calcium Level 8.1 mg/dL (8.5-10.1) Laboratory Tests Test 12/02/16 05:45 White Blood Count 8.3 x10^3/uL (4.0-11.0) Red Blood Count 3.37 x10^6/uL (3.50-5.40) Hemoglobin 10.8 g/dL (12.0-15.5) Hematocrit 32.4 % (36.0-47.0) Mean Corpuscular Volume 96 fL (79-100) Mean Corpuscular Hemoglobin 32 pg (25-35) Mean Corpuscular Hemoglobin Concent 34 g/dL (31-37) Red Cell Distribution Width 17.1 % (11.5-14.5) Platelet Count 236 x10^3/uL (140-400) Neutrophils (%) (Auto) 72 % (31-73) Lymphocytes (%) (Auto) 18 % (24-48) Monocytes (%) (Auto) 9 % (0-9) Eosinophils (%) (Auto) 1 % (0-3) Basophils (%) (Auto) 1 % (0-3) Neutrophils # (Auto) 6.0 x10^3uL (1.8-7.7) Lymphocytes # (Auto) 1.5 x10^3/uL (1.0-4.8) Monocytes # (Auto) 0.7 x10^3/uL (0.0-1.1) Eosinophils # (Auto) 0.1 x10^3/uL (0.0-0.7) Basophils # (Auto) 0.0 x10^3/uL (0.0-0.2) Sodium Level 141 mmol/L (136-145) Potassium Level 3.2 mmol/L (3.5-5.1) Chloride Level 107 mmol/L (98-107) Carbon Dioxide Level 22 mmol/L (21-32) Anion Gap 12 (6-14) Blood Urea Nitrogen 15 mg/dL (7-20) Creatinine 0.8 mg/dL (0.6-1.0) Estimated GFR (Cockcroft-Gault) 69.9 Glucose Level 90 mg/dL (70-99) Calcium Level 8.1 mg/dL (8.5-10.1) Microbiology 12/01/16 Blood Culture - Preliminary, Resulted NO GROWTH AFTER 1 DAY Medications Current Medications Sodium Chloride 1,000 ml @ 100 mls/hr Q10H IV Last administered on 11/30/16 20 :45; Start 11/30/16 at 20:45; Stop 12/01/16 at 03:26; Status DC Sodium Chloride 500 ml @ 500 mls/hr 1X ONCE IV Last administered on 11/30/16 20:59; Start 11/30/16 at 20:45; Stop 11/30/16 at 21:44; Status DC Lorazepam (Ativan) 2 mg STK-MED ONCE .ROUTE ; Start 11/30/16 at 20:40; Stop at 20:41; Status DC Lorazepam (Ativan) 1 mg 1X ONCE IV Last administered on 11/30/16 20:42; Start 11/30/16 at 21:15; Stop 11/30/16 at 21:16; Status DC Lorazepam (Ativan) 1 mg 1X ONCE IV Last administered on 11/30/16 21:20; Start 11/30/16 at 22:00; Stop 11/30/16 at 22:01; Status DC Ceftriaxone Sodium 1 gm/ Sodium Chloride 50 ml @ 100 mls/hr ONCE ONCE IV ; Start 11/30/16 at 22:30; Stop 11/30/16 at 22:59; Status UNV Ceftriaxone Sodium 50 ml @ 100 mls/hr 1X ONCE IV Last administered on 22:43; Start 11/30/16 at 23:00; Stop 11/30/16 at 23:29; Status DC Calcium Gluconate (Calcium Gluconate) 1,000 mg 1X ONCE IVP Last administered on 11/30/16 23:12; Start 11/30/16 at 23:30; Stop 11/30/16 at 23:31; Status DC Sodium Chloride 1,570 ml @ 1,000 mls/hr 1X ONCE IV ; Start 12/01/16 at 00:30; Stop 12/01/16 at 02:04; Status DC Sodium Chloride/ Sodium Chloride 1,570 ml @ 1,000 mls/hr 1X ONCE IV Last administered on 12/01/16 00:04; Start 12/01/16 at 00:15; Stop 12/01/16 at 00:16; Status DC Sodium Chloride 1,570 ml @ 1,000 mls/hr 1X ONCE IV ; Start 12/01/16 at 00:16; Stop 12/01/16 at 01:49; Status DC Sodium Chloride 1,000 ml @ 100 mls/hr Q10H IV Last administered on 12/01/16 11 :49; Start 12/01/16 at 02:30; Stop 12/01/16 at 12:29; Status DC Ceftriaxone Sodium 1 gm/ Sodium Chloride 50 ml @ 100 mls/hr QHS IV Last administered on 12/01/16 20:04; Start 12/01/16 at 21:00 Sodium Polystyrene Sulfonate (Kayexalate) 15 gm 1X ONCE PO Last administered on 12/01/16 11:20; Start 12/01/16 at 11:00; Stop 12/01/16 at 11:01; Status DC Sodium Chloride 1,000 ml @ 100 mls/hr Q10H IV Last administered on 12/02/16 06 :21; Start 12/01/16 at 12:15 Lorazepam (Ativan) 1 mg PRN Q6HRS PRN PO ANXIETY / AGITATION Last administered on 12/02/16 09:58; Start 12/01/16 at 19:45 Temazepam (Restoril) 15 mg PRN QHS PRN PO INSOMNIA Last administered on 23:21; Start 12/01/16 at 23:15 Hydralazine HCl (Apresoline) 10 mg PRN Q4HRS PRN IVP for SBP > 165 Last administered on 12/02/16 08:29; Start 12/02/16 at 08:30 Oxycodone/ Acetaminophen (Percocet 5/325) 1 tab PRN Q12HR PRN PO PAIN Last administered on 12/02/16 08:30; Start 12/02/16 at 08:30 Amlodipine Besylate (Norvasc) 10 mg DAILY PO Last administered on 12/02/16 13: 18; Start 12/02/16 at 13:00 Carvedilol (Coreg) 12.5 mg BIDWMEALS PO Last administered on 12/02/16 13:19; Start 12/02/16 at 13:00 Divalproex Sodium (Depakote Er) 250 mg QHS PO ; Start 12/02/16 at 21:00 Duloxetine HCl (Cymbalta) 30 mg DAILY PO Last administered on 12/02/16 13:17; Start 12/02/16 at 13:00 Folic Acid (Folic Acid) 1 mg DAILY PO Last administered on 12/02/16 13:17; Start 12/02/16 at 13:00 Levothyroxine Sodium (Synthroid) 75 mcg DAILY06 PO Last administered on 13:17; Start 12/02/16 at 13:00 Lisinopril (Prinivil) 10 mg DAILY PO Last administered on 12/02/16 13:18; Start 12/02/16 at 13:00 Mirtazapine (Remeron) 15 mg QHS PO ; Start 12/02/16 at 21:00 Olanzapine (ZyPREXA) 2.5 mg PRN Q2HR PRN PO ANXIETY / AGITATION; Start 12/02/16 at 12:45 Olanzapine (ZyPREXA) 2.5 mg QHS PO Last administered on 12/02/16 13:18; Start 12/02/16 at 21:00 Active Scripts Active Antibiotic Ointment (Neomy Sulf/Bacitrac Zn/Poly) 28 Gm Oint...g. 28 Gm TP BID Reported Tylenol (Acetaminophen) 325 Mg Tablet 1 Tab PO PRN Q8HRS PRN Senokot (Sennosides) 8.6 Mg Tablet 1 Tab PO BID Seroquel (Quetiapine Fumarate) 50 Mg Tablet 1 Tab PO TID Percocet 5-325 Mg Tablet (Oxycodone/Acetaminophen) 1 Each Tablet 1 Tab PO PRN Q12HR PRN Pantoprazole Sodium 40 Mg Tablet.dr 1 Tab PO DAILY Olanzapine 5 Mg Tablet 0.5 Tab PO PRN Q2HR PRN Olanzapine 5 Mg Tablet 0.5 Tab PO QHS Alum-Mag Hydroxide-Simeth Liq (Mag Hydrox/Al Hydrox/Simeth) 360 Ml Oral.susp 15 Mg PO PRN Q24HRS PRN Mucinex (Guaifenesin) 600 Mg Tablet.er 1 Tab PO BID Anti-Diarrheal (Loperamide Hcl) 2 Mg Capsule 2 Mg PO PRN Q6HRS PRN Lisinopril 10 Mg Tablet 1 Tab PO DAILY Acidophilus (Lactobacillus Acidophilus) 1 Each Tablet 2 Each PO TID Albuterol Sulfate Conc Neb Soln (Albuterol Sulfate) 2.5 Mg/0.5 Ml Vial.neb 1 Vial NEB PRN Q4HRS PRN Ipratropium [place] 0.2 Mg/1 Ml Solution 1 Vial NEB PRN Q4HRS PRN Divalproex Sodium Er (Divalproex Sodium) 500 Mg Tab.er.24h 0.5 Tab PO QHS Cetirizine Hcl 10 Mg Tablet 1 Tab PO DAILY Cepacol Sore Throat Lozenge (Benzocaine/Menthol) 1 Each Lozenge 1 Each MM PRN Q2HR PRN Alprazolam 0.5 Mg Tablet 0.5 Mg PO PRN Q8HRS PRN Acetaminophen 325 Mg Capsule 325 Mg PO PRN Q8HRS PRN Remeron (Mirtazapine) 15 Mg Tablet 1 Tab PO QHS Quetiapine Fumarate 50 Mg Tablet 50 Mg PO TID Quetiapine Fumarate 100 Mg Tablet 100 Mg PO HS Miralax (Polyethylene Glycol 3350) 17 Gm Powd.pack 1 Packet PO DAILY Milk Of Magnesia (Magnesium Hydroxide) 400 Mg/5 Ml Oral.susp 15 Ml PO PRN DAILY PRN Neuro Max (Methyl Salicylate) 85 Gm Gel..gram. 85 Gm TP PRN Q6HRS PRN Folic Acid 1 Mg Tablet 1 Mg PO DAILY Duloxetine Hcl 30 Mg Capsule.dr 30 Mg PO DAILY Buspirone Hcl 15 Mg Tablet 1 Tab PO BID Women's Gentle Laxative (Bisacodyl) 5 Mg Tablet.dr 5 Mg PO PRN DAILY PRN Neurontin (Gabapentin) 300 Mg Capsule 2 Cap PO TID Antioxidant Vitamin (Multivitamin With Minerals) 1 Each Tablet 1 Each PO DAILY Aspirin 81 Mg Tab.chew 1 Tab PO DAILY Levothyroxine Sodium 50 Mcg Tablet 75 Mcg PO DAILY Carvedilol 6.25 Mg Tablet 12.5 Mg PO BID Amlodipine Besylate 5 Mg Tablet 10 Mg PO DAILY Vitals/I & O Vital Sign - Last 24 Hours 12/01/16 12/01/16 12/01/16 12/01/16 14:42 19:00 20:00 23:00 Temp 99.5 100.8 98.7 99.5 100.8 98.7 Pulse 70 77 86 Resp 28 20 18 B/P (MAP) 123/43 (69) 140/48 (78) 154/59 (90) Pulse Ox 98 95 95 O2 Delivery Room Air Room Air Room Air Room Air 12/02/16 12/02/16 12/02/16 12/02/16 03:00 07:50 08:00 08:29 Temp 99.0 99.7 99.0 99.7 Pulse 86 90 90 Resp 22 20 B/P (MAP) 175/71 (105) 174/77 (109) 174/77 Pulse Ox 95 100 O2 Delivery Room Air Room Air Room Air 12/02/16 12/02/16 12/02/16 12/02/16 08:30 09:32 11:00 13:18 Temp 98.6 98.6 Pulse 93 93 Resp 24 B/P (MAP) 148/48 (81) 170/61 Pulse Ox 98 O2 Delivery Room Air Room Air Room Air 12/02/16 12/02/16 13:18 13:19 Pulse 93 93 B/P (MAP) 170/61 170/61 Intake and Output 12/01/16 12/01/16 12/02/16 15:00 23:00 07:00 Intake Total 0 ml 240 ml 350 ml Output Total 450 ml 2750 ml Balance 0 ml -210 ml -2400 ml AMANDA MERCEDES MD Dec 02, 2016 14:35
[2016-12-02 14:45] VITALS: BP 143/50
[2016-12-02] MEDS: OLANZapine 2.5 MG TABLET PO PRN ×2 (15:56→22:14)
[2016-12-02] MEDS: oxyCODONE/APAP 5/325 1 TAB TABLET PO PRN (17:41)
[2016-12-02 19:00] VITALS: BP 145/53
[2016-12-02] MEDS ORDERED: OLANZapine 2.5 MG TABLET PO SCH (21:00)
[2016-12-02] MEDS ORDERED: DIVALPROEX EXTENDED RELEASE 250 MG TAB.ER.24H. PO SCH (21:00)
[2016-12-02] MEDS ORDERED: MIRTAZAPINE 15 MG TABLET PO SCH (21:00)
[2016-12-02 23:00] VITALS: BP 186/69
--- NOTE | 2016-12-03 03:03 | ACF ---
Admission Forms Criteria MENTAL STATUS CHANGE Clinical Indications for Inpatient Care (Place 'X' for any and all applicable criteria): Ongoing inpatient care may be needed for 1 or more of the following(1)(2)(3)(5)( 6): [X]I. Suspected serious etiology (eg, medical disorder, MARKETING COMPLIANCE MANAGER event) of altered mental status [ ]II. Danger to self or others not manageable at lower level of care [ ]III. Grave disability (eg, inability to perform self care necessary at lower level of care) [ ]IV. Agitation or inappropriate behavior interfering with care for primary condition (eg, attempting to discontinue lines or drains prematurely, unable to cooperate with respiratory care) [ ]V. Delirium [A] [D][E] as described by 1 or more of the following(26): [ ]a) Delirium due to alcohol or sedative [F] withdrawal [ ]b) Delirium of uncertain etiology that has not responded to appropriate empiric treatment [ ]c) Delirium that prevents performance of a life-sustaining function (eg, feeding or hydrating oneself) [ ]. General contraindications and/or Inappropriate clinical situations for Observational Care in patients with Mental Status Change, when ANY ONE of the following is required: [ ]a) Prediction of prolongation of LOS based on ANY ONE of the following may be considered as a contraindication for observational care 2, 3, 4, 5, 6, 7, 8, 9, 10, 11 [ ]i) Age > 65 yrs. [ ]ii) Patient arriving by ambulance [ ]iii) Patient with high acuity [ ]iv) Patient requiring vital sign monitoring [ ]v) Patient on IV medication [ ]b) Systolic blood pressures greater than or equal to 180mmHg 3, 12 [ ]c) Patient with altered mental status including delirium and other alteration of consciousness, (3) [ ]d) Patient whose discharge disposition will be to a [place] [facility] home or rehabilitation home should not be managed in Emergency Department Observation Unit. CMS rule requires 3 days hospital stay before such placement.3,13 [ ]e) Patient with failure to thrive due to broad array of etiologies 3,16,17 [ ]f) Inability to ambulate 3,14 Extended stay beyond goal length of stay for the primary condition may be needed until ALL of the following are present(3)(5): [ ]a) Underlying medical etiology of mental status change is absent, or has been established and adequately treated [ ]b) Danger to self or others is absent or manageable at lower level of care. [ ]c) Behavior crisis management, including physical or chemical restraints, is not required or available at lower level of car [ ]d) Substance or alcohol withdrawal is absent or manageable at lower level of care. [ ]e) Behavioral symptoms (eg, agitation, somnolence, inappropriate behavior) are absent, or are manageable at lower level of care. The original [facility] content created by [facility] [employer] has been revised. The portions of the content which have been revised are identified through the use of italic text or in bold, and [facility] has neither reviewed nor approved the modified material. All other unmodified content is copyright [facility]. Please see references footnoted in the original [facility] edition 2016 Admission Criteria Met?: Yes LITZY SOLIS Dec 03, 2016 03:03
[2016-12-03] MEDS: IV NORMAL SALINE 1000ML BAG 1,000 ML IV SCH (03:04)
[2016-12-03] MEDS: oxyCODONE/APAP 5/325 1 TAB TABLET PO PRN ×2 (03:05→08:59)
[2016-12-03 03:08] VITALS: BP 103/58
[2016-12-03 04:54] LABS: BASO # 0.1 x10^3/uL (0.0-0.2); BASO % 1 % (0-3); EOS % 2 % (0-3); HEMATOCRIT 33.4 % (36.0-47.0); LYMPH % 22 % (24-48); MEAN CORPUSCULAR HEMOGLOBIN 32 pg (25-35); MEAN CORPUSCULAR HGB CONC 33 g/dL (31-37); MEAN CORPUSCULAR VOLUME 97 fL (79-100); MONO % 11 % (0-9); NEUT % 65 % (31-73); PLATELET COUNT 241 x10^3/uL (140-400); RED BLOOD COUNT 3.44 x10^6/uL (3.50-5.40); RED CELL DISTRIBUTION WIDTH 16.7 % (11.5-14.5); WHITE BLOOD COUNT 9.5 x10^3/uL (4.0-11.0)
[2016-12-03 05:15] LABS: CALCIUM 7.8 mg/dL (8.5-10.1); CREATININE 0.7 mg/dL (0.6-1.0); GFR 81.6; POTASSIUM 3.1 mmol/L (3.5-5.1)
[2016-12-03] MEDS: LORazepam 1 MG TABLET PO PRN (05:25)
[2016-12-03] MEDS: LEVOTHYROXINE 75 MCG TABLET PO SCH (05:25)
[2016-12-03 07:50] VITALS: BP 160/63
[2016-12-03] MEDS: LISINOPRIL 10 MG TABLET PO SCH (08:59)
[2016-12-03] MEDS: DULoxetine HCL 30 MG CAPSULE.DR PO SCH (08:59)
[2016-12-03] MEDS: amLODIPine BESYLATE 10 MG TABLET PO SCH (08:59)
[2016-12-03] MEDS: FOLIC ACID 1 MG TABLET. PO SCH (09:00)
[2016-12-03] MEDS: CARVEDILOL 12.5 MG TABLET. PO SCH (09:00)
--- NOTE | 2016-12-03 10:13 | PDOC ---
PROGRESS NOTES Assessment Problems Medical Problems: (1) Altered mental status Status: Acute (2) Sepsis Status: Acute (3) Suicidal ideation Status: Acute (4) Systemic inflammatory response syndrome (SIRS) Status: Acute (5) UTI (urinary tract infection) Status: Acute Metabolic encephalopathy, Possible urinary tract infection with sepsis, improved Long-standing psychiatric disease Plan Okay for discharge Follow-up with neurology has needed Subjective Wants to go home Objective Vital Signs Date Time Temp Pulse Resp B/P (MAP) Pulse Ox O2 Delivery O2 Flow Rate FiO2 12/03/16 09:00 83 160/63 12/03/16 08:59 98 Room Air 12/03/16 07:50 97.9 20 97.9 Intake and Output 12/03/16 07:00 Intake Total 320 ml Output Total 4600 ml Balance -4280 ml Intake Oral 320 ml Output Urine Total 4600 ml # Bowel Movements 2 PHYSICAL EXAM Alert. Oriented to time, place and person. PERRL. EOMI. CN: no focal findings. Muscle tone: normal. Muscle strength: 4/5 DTR: 1+ Plantar reflex: flexor Gait: not examined in bed. Sensory exam: no abnormal findings. No cerebellar signs elicited. Review of Relevant I have reviewed the following items camacho (where applicable) has been applied. Labs Laboratory Tests Test 12/02/16 05:45 12/03/16 03:00 White Blood Count 8.3 x10^3/uL (4.0-11.0) 9.5 x10^3/uL (4.0-11.0) Red Blood Count 3.37 x10^6/uL (3.50-5.40) 3.44 x10^6/uL (3.50-5.40) Hemoglobin 10.8 g/dL (12.0-15.5) 11.0 g/dL (12.0-15.5) Hematocrit 32.4 % (36.0-47.0) 33.4 % (36.0-47.0) Mean Corpuscular Volume 96 fL (79-100) 97 fL (79-100) Mean Corpuscular Hemoglobin 32 pg (25-35) 32 pg (25-35) Mean Corpuscular Hemoglobin Concent 34 g/dL (31-37) 33 g/dL (31-37) Red Cell Distribution Width 17.1 % (11.5-14.5) 16.7 % (11.5-14.5) Platelet Count 236 x10^3/uL (140-400) 241 x10^3/uL (140-400) Neutrophils (%) (Auto) 72 % (31-73) 65 % (31-73) Lymphocytes (%) (Auto) 18 % (24-48) 22 % (24-48) Monocytes (%) (Auto) 9 % (0-9) 11 % (0-9) Eosinophils (%) (Auto) 1 % (0-3) 2 % (0-3) Basophils (%) (Auto) 1 % (0-3) 1 % (0-3) Neutrophils # (Auto) 6.0 x10^3uL (1.8-7.7) 6.1 x10^3uL (1.8-7.7) Lymphocytes # (Auto) 1.5 x10^3/uL (1.0-4.8) 2.0 x10^3/uL (1.0-4.8) Monocytes # (Auto) 0.7 x10^3/uL (0.0-1.1) 1.1 x10^3/uL (0.0-1.1) Eosinophils # (Auto) 0.1 x10^3/uL (0.0-0.7) 0.2 x10^3/uL (0.0-0.7) Basophils # (Auto) 0.0 x10^3/uL (0.0-0.2) 0.1 x10^3/uL (0.0-0.2) Sodium Level 141 mmol/L (136-145) 145 mmol/L (136-145) Potassium Level 3.2 mmol/L (3.5-5.1) 3.1 mmol/L (3.5-5.1) Chloride Level 107 mmol/L (98-107) 109 mmol/L (98-107) Carbon Dioxide Level 22 mmol/L (21-32) 23 mmol/L (21-32) Anion Gap 12 (6-14) 13 (6-14) Blood Urea Nitrogen 15 mg/dL (7-20) 9 mg/dL (7-20) Creatinine 0.8 mg/dL (0.6-1.0) 0.7 mg/dL (0.6-1.0) Estimated GFR (Cockcroft-Gault) 69.9 81.6 Glucose Level 90 mg/dL (70-99) 120 mg/dL (70-99) Calcium Level 8.1 mg/dL (8.5-10.1) 7.8 mg/dL (8.5-10.1) Laboratory Tests Test 12/03/16 03:00 White Blood Count 9.5 x10^3/uL (4.0-11.0) Red Blood Count 3.44 x10^6/uL (3.50-5.40) Hemoglobin 11.0 g/dL (12.0-15.5) Hematocrit 33.4 % (36.0-47.0) Mean Corpuscular Volume 97 fL (79-100) Mean Corpuscular Hemoglobin 32 pg (25-35) Mean Corpuscular Hemoglobin Concent 33 g/dL (31-37) Red Cell Distribution Width 16.7 % (11.5-14.5) Platelet Count 241 x10^3/uL (140-400) Neutrophils (%) (Auto) 65 % (31-73) Lymphocytes (%) (Auto) 22 % (24-48) Monocytes (%) (Auto) 11 % (0-9) Eosinophils (%) (Auto) 2 % (0-3) Basophils (%) (Auto) 1 % (0-3) Neutrophils # (Auto) 6.1 x10^3uL (1.8-7.7) Lymphocytes # (Auto) 2.0 x10^3/uL (1.0-4.8) Monocytes # (Auto) 1.1 x10^3/uL (0.0-1.1) Eosinophils # (Auto) 0.2 x10^3/uL (0.0-0.7) Basophils # (Auto) 0.1 x10^3/uL (0.0-0.2) Sodium Level 145 mmol/L (136-145) Potassium Level 3.1 mmol/L (3.5-5.1) Chloride Level 109 mmol/L (98-107) Carbon Dioxide Level 23 mmol/L (21-32) Anion Gap 13 (6-14) Blood Urea Nitrogen 9 mg/dL (7-20) Creatinine 0.7 mg/dL (0.6-1.0) Estimated GFR (Cockcroft-Gault) 81.6 Glucose Level 120 mg/dL (70-99) Calcium Level 7.8 mg/dL (8.5-10.1) Microbiology 12/01/16 Blood Culture - Preliminary, Resulted NO GROWTH AFTER 2 DAYS Medications Current Medications Sodium Chloride 1,000 ml @ 100 mls/hr Q10H IV Last administered on 11/30/16 20 :45; Start 11/30/16 at 20:45; Stop 12/01/16 at 03:26; Status DC Sodium Chloride 500 ml @ 500 mls/hr 1X ONCE IV Last administered on 11/30/16 20:59; Start 11/30/16 at 20:45; Stop 11/30/16 at 21:44; Status DC Lorazepam (Ativan) 2 mg STK-MED ONCE .ROUTE ; Start 11/30/16 at 20:40; Stop at 20:41; Status DC Lorazepam (Ativan) 1 mg 1X ONCE IV Last administered on 11/30/16 20:42; Start 11/30/16 at 21:15; Stop 11/30/16 at 21:16; Status DC Lorazepam (Ativan) 1 mg 1X ONCE IV Last administered on 11/30/16 21:20; Start 11/30/16 at 22:00; Stop 11/30/16 at 22:01; Status DC Ceftriaxone Sodium 1 gm/ Sodium Chloride 50 ml @ 100 mls/hr ONCE ONCE IV ; Start 11/30/16 at 22:30; Stop 11/30/16 at 22:59; Status UNV Ceftriaxone Sodium 50 ml @ 100 mls/hr 1X ONCE IV Last administered on 22:43; Start 11/30/16 at 23:00; Stop 11/30/16 at 23:29; Status DC Calcium Gluconate (Calcium Gluconate) 1,000 mg 1X ONCE IVP Last administered on 11/30/16 23:12; Start 11/30/16 at 23:30; Stop 11/30/16 at 23:31; Status DC Sodium Chloride 1,570 ml @ 1,000 mls/hr 1X ONCE IV ; Start 12/01/16 at 00:30; Stop 12/01/16 at 02:04; Status DC Sodium Chloride/ Sodium Chloride 1,570 ml @ 1,000 mls/hr 1X ONCE IV Last administered on 12/01/16 00:04; Start 12/01/16 at 00:15; Stop 12/01/16 at 00:16; Status DC Sodium Chloride 1,570 ml @ 1,000 mls/hr 1X ONCE IV ; Start 12/01/16 at 00:16; Stop 12/01/16 at 01:49; Status DC Sodium Chloride 1,000 ml @ 100 mls/hr Q10H IV Last administered on 12/01/16 11 :49; Start 12/01/16 at 02:30; Stop 12/01/16 at 12:29; Status DC Ceftriaxone Sodium 1 gm/ Sodium Chloride 50 ml @ 100 mls/hr QHS IV Last administered on 12/02/16 20:16; Start 12/01/16 at 21:00 Sodium Polystyrene Sulfonate (Kayexalate) 15 gm 1X ONCE PO Last administered on 12/01/16 11:20; Start 12/01/16 at 11:00; Stop 12/01/16 at 11:01; Status DC Sodium Chloride 1,000 ml @ 100 mls/hr Q10H IV Last administered on 12/03/16 03:04; Start 12/01/16 at 12:15 Lorazepam (Ativan) 1 mg PRN Q6HRS PRN PO ANXIETY / AGITATION Last administered on 12/03/16 05:25; Start 12/01/16 at 19:45 Temazepam (Restoril) 15 mg PRN QHS PRN PO INSOMNIA Last administered on 23:21; Start 12/01/16 at 23:15 Hydralazine HCl (Apresoline) 10 mg PRN Q4HRS PRN IVP for SBP > 165 Last administered on 12/02/16 22:15; Start 12/02/16 at 08:30 Oxycodone/ Acetaminophen (Percocet 5/325) 1 tab PRN Q12HR PRN PO PAIN Last administered on 12/02/16 08:30; Start 12/02/16 at 08:30; Stop 12/02/16 at 17:37; Status DC Amlodipine Besylate (Norvasc) 10 mg DAILY PO Last administered on 12/03/16 08: 59; Start 12/02/16 at 13:00 Carvedilol (Coreg) 12.5 mg BIDWMEALS PO Last administered on 12/03/16 09:00; Start 12/02/16 at 13:00 Divalproex Sodium (Depakote Er) 250 mg QHS PO Last administered on 12/02/16 20: 17; Start 12/02/16 at 21:00 Duloxetine HCl (Cymbalta) 30 mg DAILY PO Last administered on 12/03/16 08:59; Start 12/02/16 at 13:00 Folic Acid (Folic Acid) 1 mg DAILY PO Last administered on 12/03/16 09:00; Start 12/02/16 at 13:00 Levothyroxine Sodium (Synthroid) 75 mcg DAILY06 PO Last administered on 05:25; Start 12/02/16 at 13:00 Lisinopril (Prinivil) 10 mg DAILY PO Last administered on 12/03/16 08:59; Start 12/02/16 at 13:00 Mirtazapine (Remeron) 15 mg QHS PO Last administered on 12/02/16 20:17; Start 12/02/16 at 21:00 Olanzapine (ZyPREXA) 2.5 mg PRN Q2HR PRN PO ANXIETY / AGITATION Last administered on 12/02/16 22:14; Start 12/02/16 at 12:45 Olanzapine (ZyPREXA) 2.5 mg QHS PO Last administered on 12/02/16 13:18; Start 12/02/16 at 21:00 Oxycodone/ Acetaminophen (Percocet 5/325) 1 tab PRN Q6HRS PRN PO PAIN Last administered on 12/03/16 08:59; Start 12/02/16 at 17:36 Active Scripts Active Antibiotic Ointment (Neomy Sulf/Bacitrac Zn/Poly) 28 Gm Oint...g. 28 Gm TP BID Reported Tylenol (Acetaminophen) 325 Mg Tablet 1 Tab PO PRN Q8HRS PRN Senokot (Sennosides) 8.6 Mg Tablet 1 Tab PO BID Seroquel (Quetiapine Fumarate) 50 Mg Tablet 1 Tab PO TID Percocet 5-325 Mg Tablet (Oxycodone/Acetaminophen) 1 Each Tablet 1 Tab PO PRN Q12HR PRN Pantoprazole Sodium 40 Mg Tablet.dr 1 Tab PO DAILY Olanzapine 5 Mg Tablet 0.5 Tab PO PRN Q2HR PRN Olanzapine 5 Mg Tablet 0.5 Tab PO QHS Alum-Mag Hydroxide-Simeth Liq (Mag Hydrox/Al Hydrox/Simeth) 360 Ml Oral.susp 15 Mg PO PRN Q24HRS PRN Mucinex (Guaifenesin) 600 Mg Tablet.er 1 Tab PO BID Anti-Diarrheal (Loperamide Hcl) 2 Mg Capsule 2 Mg PO PRN Q6HRS PRN Lisinopril 10 Mg Tablet 1 Tab PO DAILY Acidophilus (Lactobacillus Acidophilus) 1 Each Tablet 2 Each PO TID Albuterol Sulfate Conc Neb Soln (Albuterol Sulfate) 2.5 Mg/0.5 Ml Vial.neb 1 Vial NEB PRN Q4HRS PRN Ipratropium [place] 0.2 Mg/1 Ml Solution 1 Vial NEB PRN Q4HRS PRN Divalproex Sodium Er (Divalproex Sodium) 500 Mg Tab.er.24h 0.5 Tab PO QHS Cetirizine Hcl 10 Mg Tablet 1 Tab PO DAILY Cepacol Sore Throat Lozenge (Benzocaine/Menthol) 1 Each Lozenge 1 Each MM PRN Q2HR PRN Alprazolam 0.5 Mg Tablet 0.5 Mg PO PRN Q8HRS PRN Acetaminophen 325 Mg Capsule 325 Mg PO PRN Q8HRS PRN Remeron (Mirtazapine) 15 Mg Tablet 1 Tab PO QHS Quetiapine Fumarate 50 Mg Tablet 50 Mg PO TID Quetiapine Fumarate 100 Mg Tablet 100 Mg PO HS Miralax (Polyethylene Glycol 3350) 17 Gm Powd.pack 1 Packet PO DAILY Milk Of Magnesia (Magnesium Hydroxide) 400 Mg/5 Ml Oral.susp 15 Ml PO PRN DAILY PRN Neuro Max (Methyl Salicylate) 85 Gm Gel..gram. 85 Gm TP PRN Q6HRS PRN Folic Acid 1 Mg Tablet 1 Mg PO DAILY Duloxetine Hcl 30 Mg Capsule. 30 Mg PO DAILY Buspirone Hcl 15 Mg Tablet 1 Tab PO BID Women's Gentle Laxative (Bisacodyl) 5 Mg Tablet.dr 5 Mg PO PRN DAILY PRN Neurontin (Gabapentin) 300 Mg Capsule 2 Cap PO TID Antioxidant Vitamin (Multivitamin With Minerals) 1 Each Tablet 1 Each PO DAILY Aspirin 81 Mg Tab.chew 1 Tab PO DAILY Levothyroxine Sodium 50 Mcg Tablet 75 Mcg PO DAILY Carvedilol 6.25 Mg Tablet 12.5 Mg PO BID Amlodipine Besylate 5 Mg Tablet 10 Mg PO DAILY Vitals/I & O Vital Sign - Last 24 Hours 12/02/16 12/02/16 12/02/16 12/02/16 11:00 13:18 13:18 13:19 Temp 98.6 98.6 Pulse 93 93 93 93 Resp 24 B/P (MAP) 148/48 (81) 170/61 170/61 170/61 Pulse Ox 98 O2 Delivery Room Air 12/02/16 12/02/16 12/02/16 12/02/16 14:45 15:56 17:41 18:28 Temp 97.9 97.9 Pulse 83 83 Resp 20 B/P (MAP) 143/50 (81) 143/50 Pulse Ox 96 O2 Delivery Room Air Room Air Room Air 12/02/16 12/02/16 12/02/16 12/02/16 19:00 20:30 22:15 23:00 Temp 98.4 98.6 98.4 98.6 Pulse 75 86 86 Resp 18 18 B/P (MAP) 145/53 (83) 186/69 186/69 (108) Pulse Ox 98 96 O2 Delivery Room Air Room Air Room Air 12/03/16 12/03/16 12/03/16 12/03/16 03:08 07:50 08:00 08:59 Temp 97.9 97.9 97.9 97.9 Pulse 86 83 83 Resp 20 20 B/P (MAP) 103/58 (73) 160/63 (95) 160/63 Pulse Ox 98 98 O2 Delivery Room Air Room Air Room Air 12/03/16 12/03/16 12/03/16 08:59 08:59 09:00 Pulse 83 83 B/P (MAP) 160/63 160/63 Pulse Ox 98 O2 Delivery Room Air Intake and Output 12/02/16 12/02/16 12/03/16 15:00 23:00 07:00 Intake Total 120 ml 200 ml Output Total 1900 ml 1100 ml 1600 ml Balance -1780 ml -1100 ml -1400 ml KIRSTEN BAKER MD 10, 2017 10:13
[2016-12-03 10:25] VITALS: BP 120/72
--- NOTE | 2016-12-03 10:26 | PDOC ---
PROGRESS NOTES Chief Complaint Chief Complaint Chief complaint altered mental status #1 altered mental status, resolved #2 questionable suicidal ideations, patient denies any active suicidal or homicidal ideations at this time. #3. Agitation, episodic: I will resume some of her psychotropic medications. #4 hypertension continue current home medications were resumed. Physical therapy occupational therapy. #5 possible urinary tract infection currently on ceftriaxone, labs and records reviewed, #6 hypokalemia, potassium replaced, #7 social studies department chair consultation for placement patient didn't clinically stable enough to go to assisted facility or psychiatric facility. DC Ramirez catheter. IV Rocephin. Awaiting placement. Vitals Vitals Vital Signs Date Time Temp Pulse Resp B/P (MAP) Pulse Ox O2 Delivery O2 Flow Rate FiO2 12/03/16 09:00 83 160/63 12/03/16 08:59 98 Room Air 12/03/16 07:50 97.9 20 97.9 Physical Exam General: Alert, Oriented X3, Cooperative Heart: Normal S1 Lungs: Clear, Other Abdomen: Normal bowel sounds Extremities: No clubbing Labs LABS Laboratory Tests Test 12/03/16 03:00 White Blood Count 9.5 x10^3/uL (4.0-11.0) Red Blood Count 3.44 x10^6/uL (3.50-5.40) Hemoglobin 11.0 g/dL (12.0-15.5) Hematocrit 33.4 % (36.0-47.0) Mean Corpuscular Volume 97 fL (79-100) Mean Corpuscular Hemoglobin 32 pg (25-35) Mean Corpuscular Hemoglobin Concent 33 g/dL (31-37) Red Cell Distribution Width 16.7 % (11.5-14.5) Platelet Count 241 x10^3/uL (140-400) Neutrophils (%) (Auto) 65 % (31-73) Lymphocytes (%) (Auto) 22 % (24-48) Monocytes (%) (Auto) 11 % (0-9) Eosinophils (%) (Auto) 2 % (0-3) Basophils (%) (Auto) 1 % (0-3) Neutrophils # (Auto) 6.1 x10^3uL (1.8-7.7) Lymphocytes # (Auto) 2.0 x10^3/uL (1.0-4.8) Monocytes # (Auto) 1.1 x10^3/uL (0.0-1.1) Eosinophils # (Auto) 0.2 x10^3/uL (0.0-0.7) Basophils # (Auto) 0.1 x10^3/uL (0.0-0.2) Sodium Level 145 mmol/L (136-145) Potassium Level 3.1 mmol/L (3.5-5.1) Chloride Level 109 mmol/L (98-107) Carbon Dioxide Level 23 mmol/L (21-32) Anion Gap 13 (6-14) Blood Urea Nitrogen 9 mg/dL (7-20) Creatinine 0.7 mg/dL (0.6-1.0) Estimated GFR (Cockcroft-Gault) 81.6 Glucose Level 120 mg/dL (70-99) Calcium Level 7.8 mg/dL (8.5-10.1) Assessment and Plan Assessmemt and Plan Problems Medical Problems: (1) Altered mental status Status: Acute (2) Sepsis Status: Acute (3) Suicidal ideation Status: Acute (4) Systemic inflammatory response syndrome (SIRS) Status: Acute (5) UTI (urinary tract infection) Status: Acute Problems: Comment Review of Relevant I have reviewed the following items camacho (where applicable) has been applied. Labs Laboratory Tests Test 12/02/16 05:45 12/03/16 03:00 White Blood Count 8.3 x10^3/uL (4.0-11.0) 9.5 x10^3/uL (4.0-11.0) Red Blood Count 3.37 x10^6/uL (3.50-5.40) 3.44 x10^6/uL (3.50-5.40) Hemoglobin 10.8 g/dL (12.0-15.5) 11.0 g/dL (12.0-15.5) Hematocrit 32.4 % (36.0-47.0) 33.4 % (36.0-47.0) Mean Corpuscular Volume 96 fL (79-100) 97 fL (79-100) Mean Corpuscular Hemoglobin 32 pg (25-35) 32 pg (25-35) Mean Corpuscular Hemoglobin Concent 34 g/dL (31-37) 33 g/dL (31-37) Red Cell Distribution Width 17.1 % (11.5-14.5) 16.7 % (11.5-14.5) Platelet Count 236 x10^3/uL (140-400) 241 x10^3/uL (140-400) Neutrophils (%) (Auto) 72 % (31-73) 65 % (31-73) Lymphocytes (%) (Auto) 18 % (24-48) 22 % (24-48) Monocytes (%) (Auto) 9 % (0-9) 11 % (0-9) Eosinophils (%) (Auto) 1 % (0-3) 2 % (0-3) Basophils (%) (Auto) 1 % (0-3) 1 % (0-3) Neutrophils # (Auto) 6.0 x10^3uL (1.8-7.7) 6.1 x10^3uL (1.8-7.7) Lymphocytes # (Auto) 1.5 x10^3/uL (1.0-4.8) 2.0 x10^3/uL (1.0-4.8) Monocytes # (Auto) 0.7 x10^3/uL (0.0-1.1) 1.1 x10^3/uL (0.0-1.1) Eosinophils # (Auto) 0.1 x10^3/uL (0.0-0.7) 0.2 x10^3/uL (0.0-0.7) Basophils # (Auto) 0.0 x10^3/uL (0.0-0.2) 0.1 x10^3/uL (0.0-0.2) Sodium Level 141 mmol/L (136-145) 145 mmol/L (136-145) Potassium Level 3.2 mmol/L (3.5-5.1) 3.1 mmol/L (3.5-5.1) Chloride Level 107 mmol/L (98-107) 109 mmol/L (98-107) Carbon Dioxide Level 22 mmol/L (21-32) 23 mmol/L (21-32) Anion Gap 12 (6-14) 13 (6-14) Blood Urea Nitrogen 15 mg/dL (7-20) 9 mg/dL (7-20) Creatinine 0.8 mg/dL (0.6-1.0) 0.7 mg/dL (0.6-1.0) Estimated GFR (Cockcroft-Gault) 69.9 81.6 Glucose Level 90 mg/dL (70-99) 120 mg/dL (70-99) Calcium Level 8.1 mg/dL (8.5-10.1) 7.8 mg/dL (8.5-10.1) Laboratory Tests Test 12/03/16 03:00 White Blood Count 9.5 x10^3/uL (4.0-11.0) Red Blood Count 3.44 x10^6/uL (3.50-5.40) Hemoglobin 11.0 g/dL (12.0-15.5) Hematocrit 33.4 % (36.0-47.0) Mean Corpuscular Volume 97 fL (79-100) Mean Corpuscular Hemoglobin 32 pg (25-35) Mean Corpuscular Hemoglobin Concent 33 g/dL (31-37) Red Cell Distribution Width 16.7 % (11.5-14.5) Platelet Count 241 x10^3/uL (140-400) Neutrophils (%) (Auto) 65 % (31-73) Lymphocytes (%) (Auto) 22 % (24-48) Monocytes (%) (Auto) 11 % (0-9) Eosinophils (%) (Auto) 2 % (0-3) Basophils (%) (Auto) 1 % (0-3) Neutrophils # (Auto) 6.1 x10^3uL (1.8-7.7) Lymphocytes # (Auto) 2.0 x10^3/uL (1.0-4.8) Monocytes # (Auto) 1.1 x10^3/uL (0.0-1.1) Eosinophils # (Auto) 0.2 x10^3/uL (0.0-0.7) Basophils # (Auto) 0.1 x10^3/uL (0.0-0.2) Sodium Level 145 mmol/L (136-145) Potassium Level 3.1 mmol/L (3.5-5.1) Chloride Level 109 mmol/L (98-107) Carbon Dioxide Level 23 mmol/L (21-32) Anion Gap 13 (6-14) Blood Urea Nitrogen 9 mg/dL (7-20) Creatinine 0.7 mg/dL (0.6-1.0) Estimated GFR (Cockcroft-Gault) 81.6 Glucose Level 120 mg/dL (70-99) Calcium Level 7.8 mg/dL (8.5-10.1) Microbiology 12/01/16 Blood Culture - Preliminary, Resulted NO GROWTH AFTER 2 DAYS Medications Current Medications Sodium Chloride 1,000 ml @ 100 mls/hr Q10H IV Last administered on 11/30/16 20 :45; Start 11/30/16 at 20:45; Stop 12/01/16 at 03:26; Status DC Sodium Chloride 500 ml @ 500 mls/hr 1X ONCE IV Last administered on 11/30/16 20:59; Start 11/30/16 at 20:45; Stop 11/30/16 at 21:44; Status DC Lorazepam (Ativan) 2 mg STK-MED ONCE .ROUTE ; Start 11/30/16 at 20:40; Stop at 20:41; Status DC Lorazepam (Ativan) 1 mg 1X ONCE IV Last administered on 11/30/16 20:42; Start 11/30/16 at 21:15; Stop 11/30/16 at 21:16; Status DC Lorazepam (Ativan) 1 mg 1X ONCE IV Last administered on 11/30/16 21:20; Start 11/30/16 at 22:00; Stop 11/30/16 at 22:01; Status DC Ceftriaxone Sodium 1 gm/ Sodium Chloride 50 ml @ 100 mls/hr ONCE ONCE IV ; Start 11/30/16 at 22:30; Stop 11/30/16 at 22:59; Status UNV Ceftriaxone Sodium 50 ml @ 100 mls/hr 1X ONCE IV Last administered on 22:43; Start 11/30/16 at 23:00; Stop 11/30/16 at 23:29; Status DC Calcium Gluconate (Calcium Gluconate) 1,000 mg 1X ONCE IVP Last administered on 11/30/16 23:12; Start 11/30/16 at 23:30; Stop 11/30/16 at 23:31; Status DC Sodium Chloride 1,570 ml @ 1,000 mls/hr 1X ONCE IV ; Start 12/01/16 at 00:30; Stop 12/01/16 at 02:04; Status DC Sodium Chloride/ Sodium Chloride 1,570 ml @ 1,000 mls/hr 1X ONCE IV Last administered on 12/01/16 00:04; Start 12/01/16 at 00:15; Stop 12/01/16 at 00:16; Status DC Sodium Chloride 1,570 ml @ 1,000 mls/hr 1X ONCE IV ; Start 12/01/16 at 00:16; Stop 12/01/16 at 01:49; Status DC Sodium Chloride 1,000 ml @ 100 mls/hr Q10H IV Last administered on 12/01/16 11 :49; Start 12/01/16 at 02:30; Stop 12/01/16 at 12:29; Status DC Ceftriaxone Sodium 1 gm/ Sodium Chloride 50 ml @ 100 mls/hr QHS IV Last administered on 12/02/16 20:16; Start 12/01/16 at 21:00 Sodium Polystyrene Sulfonate (Kayexalate) 15 gm 1X ONCE PO Last administered on 12/01/16 11:20; Start 12/01/16 at 11:00; Stop 12/01/16 at 11:01; Status DC Sodium Chloride 1,000 ml @ 100 mls/hr Q10H IV Last administered on 12/03/16 03:04; Start 12/01/16 at 12:15 Lorazepam (Ativan) 1 mg PRN Q6HRS PRN PO ANXIETY / AGITATION Last administered on 12/03/16 05:25; Start 12/01/16 at 19:45 Temazepam (Restoril) 15 mg PRN QHS PRN PO INSOMNIA Last administered on 23:21; Start 12/01/16 at 23:15 Hydralazine HCl (Apresoline) 10 mg PRN Q4HRS PRN IVP for SBP > 165 Last administered on 12/02/16 22:15; Start 12/02/16 at 08:30 Oxycodone/ Acetaminophen (Percocet 5/325) 1 tab PRN Q12HR PRN PO PAIN Last administered on 12/02/16 08:30; Start 12/02/16 at 08:30; Stop 12/02/16 at 17:37; Status DC Amlodipine Besylate (Norvasc) 10 mg DAILY PO Last administered on 12/03/16 08: 59; Start 12/02/16 at 13:00 Carvedilol (Coreg) 12.5 mg BIDWMEALS PO Last administered on 12/03/16 09:00; Start 12/02/16 at 13:00 Divalproex Sodium (Depakote Er) 250 mg QHS PO Last administered on 12/02/16 20: 17; Start 12/02/16 at 21:00 Duloxetine HCl (Cymbalta) 30 mg DAILY PO Last administered on 12/03/16 08:59; Start 12/02/16 at 13:00 Folic Acid (Folic Acid) 1 mg DAILY PO Last administered on 12/03/16 09:00; Start 12/02/16 at 13:00 Levothyroxine Sodium (Synthroid) 75 mcg DAILY06 PO Last administered on 05:25; Start 12/02/16 at 13:00 Lisinopril (Prinivil) 10 mg DAILY PO Last administered on 12/03/16 08:59; Start 12/02/16 at 13:00 Mirtazapine (Remeron) 15 mg QHS PO Last administered on 12/02/16 20:17; Start 12/02/16 at 21:00 Olanzapine (ZyPREXA) 2.5 mg PRN Q2HR PRN PO ANXIETY / AGITATION Last administered on 12/02/16 22:14; Start 12/02/16 at 12:45 Olanzapine (ZyPREXA) 2.5 mg QHS PO Last administered on 12/02/16 13:18; Start 12/02/16 at 21:00 Oxycodone/ Acetaminophen (Percocet 5/325) 1 tab PRN Q6HRS PRN PO PAIN Last administered on 12/03/16 08:59; Start 12/02/16 at 17:36 Potassium Chloride (Klor-Con) 40 meq 1X ONCE PO ; Start 12/03/16 at 10:30; Stop 12/03/16 at 10:31; Status UNV Active Scripts Active Antibiotic Ointment (Neomy Sulf/Bacitrac Zn/Poly) 28 Gm Oint...g. 28 Gm TP BID Reported Tylenol (Acetaminophen) 325 Mg Tablet 1 Tab PO PRN Q8HRS PRN Senokot (Sennosides) 8.6 Mg Tablet 1 Tab PO BID Seroquel (Quetiapine Fumarate) 50 Mg Tablet 1 Tab PO TID Percocet 5-325 Mg Tablet (Oxycodone/Acetaminophen) 1 Each Tablet 1 Tab PO PRN Q12HR PRN Pantoprazole Sodium 40 Mg Tablet.dr 1 Tab PO DAILY Olanzapine 5 Mg Tablet 0.5 Tab PO PRN Q2HR PRN Olanzapine 5 Mg Tablet 0.5 Tab PO QHS Alum-Mag Hydroxide-Simeth Liq (Mag Hydrox/Al Hydrox/Simeth) 360 Ml Oral.susp 15 Mg PO PRN Q24HRS PRN Mucinex (Guaifenesin) 600 Mg Tablet.er 1 Tab PO BID Anti-Diarrheal (Loperamide Hcl) 2 Mg Capsule 2 Mg PO PRN Q6HRS PRN Lisinopril 10 Mg Tablet 1 Tab PO DAILY Acidophilus (Lactobacillus Acidophilus) 1 Each Tablet 2 Each PO TID Albuterol Sulfate Conc Neb Soln (Albuterol Sulfate) 2.5 Mg/0.5 Ml Vial.neb 1 Vial NEB PRN Q4HRS PRN Ipratropium [place] 0.2 Mg/1 Ml Solution 1 Vial NEB PRN Q4HRS PRN Divalproex Sodium Er (Divalproex Sodium) 500 Mg Tab.er.24h 0.5 Tab PO QHS Cetirizine Hcl 10 Mg Tablet 1 Tab PO DAILY Cepacol Sore Throat Lozenge (Benzocaine/Menthol) 1 Each Lozenge 1 Each MM PRN Q2HR PRN Alprazolam 0.5 Mg Tablet 0.5 Mg PO PRN Q8HRS PRN Acetaminophen 325 Mg Capsule 325 Mg PO PRN Q8HRS PRN Remeron (Mirtazapine) 15 Mg Tablet 1 Tab PO QHS Quetiapine Fumarate 50 Mg Tablet 50 Mg PO TID Quetiapine Fumarate 100 Mg Tablet 100 Mg PO HS Miralax (Polyethylene Glycol 3350) 17 Gm Powd.pack 1 Packet PO DAILY Milk Of Magnesia (Magnesium Hydroxide) 400 Mg/5 Ml Oral.susp 15 Ml PO PRN DAILY PRN Neuro Max (Methyl Salicylate) 85 Gm Gel..gram. 85 Gm TP PRN Q6HRS PRN Folic Acid 1 Mg Tablet 1 Mg PO DAILY Duloxetine Hcl 30 Mg Capsule.dr 30 Mg PO DAILY Buspirone Hcl 15 Mg Tablet 1 Tab PO BID Women's Gentle Laxative (Bisacodyl) 5 Mg Tablet.dr 5 Mg PO PRN DAILY PRN Neurontin (Gabapentin) 300 Mg Capsule 2 Cap PO TID Antioxidant Vitamin (Multivitamin With Minerals) 1 Each Tablet 1 Each PO DAILY Aspirin 81 Mg Tab.chew 1 Tab PO DAILY Levothyroxine Sodium 50 Mcg Tablet 75 Mcg PO DAILY Carvedilol 6.25 Mg Tablet 12.5 Mg PO BID Amlodipine Besylate 5 Mg Tablet 10 Mg PO DAILY Vitals/I & O Vital Sign - Last 24 Hours 12/02/16 12/02/16 12/02/16 12/02/16 11:00 13:18 13:18 13:19 Temp 98.6 98.6 Pulse 93 93 93 93 Resp 24 B/P (MAP) 148/48 (81) 170/61 170/61 170/61 Pulse Ox 98 O2 Delivery Room Air 12/02/16 12/02/16 12/02/16 12/02/16 14:45 15:56 17:41 18:28 Temp 97.9 97.9 Pulse 83 83 Resp 20 B/P (MAP) 143/50 (81) 143/50 Pulse Ox 96 O2 Delivery Room Air Room Air Room Air 12/02/16 12/02/16 12/02/16 12/02/16 19:00 20:30 22:15 23:00 Temp 98.4 98.6 98.4 98.6 Pulse 75 86 86 Resp 18 18 B/P (MAP) 145/53 (83) 186/69 186/69 (108) Pulse Ox 98 96 O2 Delivery Room Air Room Air Room Air 12/03/16 12/03/16 12/03/16 12/03/16 03:08 07:50 08:00 08:59 Temp 97.9 97.9 97.9 97.9 Pulse 86 83 83 Resp 20 20 B/P (MAP) 103/58 (73) 160/63 (95) 160/63 Pulse Ox 98 98 O2 Delivery Room Air Room Air Room Air 12/03/16 12/03/16 12/03/16 08:59 08:59 09:00 Pulse 83 83 B/P (MAP) 160/63 160/63 Pulse Ox 98 O2 Delivery Room Air Intake and Output 12/02/16 12/02/16 12/03/16 15:00 23:00 07:00 Intake Total 120 ml 200 ml Output Total 1900 ml 1100 ml 1600 ml Balance -1780 ml -1100 ml -1400 ml AMANDA MERCEDES MD Dec 03, 2016 10:26
[2016-12-03] MEDS ORDERED: POTASSIUM CHLORIDE 20 MEQ TABLET.ER. PO ONE (10:30)
--- NOTE | 2016-12-03 12:54 | PDOC3 ---
Discharge Summary* Admitting Diagnosis Problems Medical Problems: (1) Altered mental status Status: Acute (2) Sepsis Status: Acute (3) Suicidal ideation Status: Acute (4) Systemic inflammatory response syndrome (SIRS) Status: Acute (5) UTI (urinary tract infection) Status: Acute Problems: Final Diagnosis Problems Medical Problems: (1) Altered mental status Status: Acute (2) Sepsis Status: Acute (3) Suicidal ideation Status: Acute (4) Systemic inflammatory response syndrome (SIRS) Status: Acute (5) UTI (urinary tract infection) Status: Acute Brief Hospital Course DATE OF DISCHARGE 12/03/2016 FINAL DISCHARGE DIAGNOSIS #1 ALTERED MENTAL STATUS LIKELY DUE TO PSYCHOTROPIC MEDICATIONS RESOLVED NEXT # 2 POSSIBLE URINARY TRACT INFECTIONS COMPLETELY TREATED #3 PRIOR HISTORY OF cva # 4 HYPERTENSION BRIEF HOSPITAL COURSE: A 76-YEAR-OLD FEMALE PATIENT IS ADMITTED TO THE HOSPITAL FOR ACUTE ALTERED MENTAL STATUS, POSSIBLE DIFFERENTIALS INITIALLY WERE SEIZURE- LIKE ACTIVITY AND A SUBSTANCE ABUSE VERSUS PSYCHOTROPIC MEDICATIONS. iNITIALLY PATIENT WAS PLACED IN CRITICAL CARE UNIT AND SHE WAS RELATED TO THE PSYCHIATRIC ASSESSMENT TEAM AND SUICIDAL IDEATIONS OR HOMICIDAL IDEATIONS WERE RULED OUT. fOR POSSIBLE UNIT AGAIN. sHE WAS TREATED WITH iv rOCEPHIN FOR 3 DAYS FOR LAST 2 DAYS PATIENT HAS BEEN FEELING BETTER THIS ANY COMPLAINTS.TODAY SHE DIDN'T MEDICALLY STABLE TO GO TO [facility]. DISCHARGE EXAM GENERAL: No apparent distress. Alert and oriented. HEENT: Head normocephalic, atraumatic. NECK: Supple LUNGS: Clear to auscultation. HEART: RRR, S1, S2 present, pulses intact CONDITION AT DISCHARGE: Improved Diet: Cardiac Scheduled Amlodipine Besylate (Amlodipine Besylate), 10 MG PO DAILY, (Reported) Aspirin (Aspirin), 1 TAB PO DAILY, (Reported) Buspirone Hcl (Buspirone Hcl), 1 TAB PO BID, (Reported) Carvedilol (Carvedilol), 12.5 MG PO BID, (Reported) Cetirizine Hcl (Cetirizine Hcl), 1 TAB PO DAILY, (Reported) Divalproex Sodium (Divalproex Sodium Er), 0.5 TAB PO QHS, (Reported) Duloxetine Hcl (Duloxetine Hcl), 30 MG PO DAILY, (Reported) Folic Acid (Folic Acid), 1 MG PO DAILY, (Reported) Gabapentin (Neurontin), 2 CAP PO TID, (Reported) Guaifenesin (Mucinex), 1 TAB PO BID, (Reported) Lactobacillus Acidophilus (Acidophilus), 2 EACH PO TID, (Reported) Levothyroxine Sodium (Levothyroxine Sodium), 75 MCG PO DAILY, (Reported) Lisinopril (Lisinopril), 1 TAB PO DAILY, (Reported) Mirtazapine (Remeron), 1 TAB PO QHS, (Reported) Multivitamin With Minerals (Antioxidant Vitamin), 1 EACH PO DAILY, (Reported) Neomy Sulf/Bacitrac Zn/Poly (Antibiotic Ointment), 28 GM TP BID Olanzapine (Olanzapine), 0.5 TAB PO QHS, (Reported) Pantoprazole Sodium (Pantoprazole Sodium), 1 TAB PO DAILY, (Reported) Polyethylene Glycol 3350 (Miralax), 1 PACKET PO DAILY, (Reported) Quetiapine Fumarate (Quetiapine Fumarate), 100 MG PO HS, (Reported) Quetiapine Fumarate (Quetiapine Fumarate), 50 MG PO TID, (Reported) Quetiapine Fumarate (Seroquel), 1 TAB PO TID, (Reported) Sennosides (Senokot), 1 TAB PO BID, (Reported) Scheduled PRN Acetaminophen (Acetaminophen), 325 MG PO PRN Q8HRS PRN for PAIN, (Reported) Acetaminophen (Tylenol), 1 TAB PO PRN Q8HRS PRN for PAIN, (Reported) Albuterol Sulfate (Albuterol Sulfate Conc Neb Soln), 1 VIAL NEB PRN Q4HRS PRN for SHORTNESS OF BREATH, (Reported) Alprazolam (Alprazolam), 0.5 MG PO PRN Q8HRS PRN for ANXIETY / AGITATION, ( Reported) Benzocaine/Menthol (Cepacol Sore Throat Lozenge), 1 EACH MM PRN Q2HR PRN for SORE THROAT, (Reported) Bisacodyl (Women's Gentle Laxative), 5 MG PO PRN DAILY PRN for consti, (Reported ) Ipratropium [place] (Ipratropium [place]), 1 VIAL NEB PRN Q4HRS PRN for SHORTNESS OF BREATH, (Reported) Loperamide Hcl (Anti-Diarrheal), 2 MG PO PRN Q6HRS PRN for DIARRHEA, (Reported) Mag Hydrox/Al Hydrox/Simeth (Alum-Mag Hydroxide-Simeth Liq), 15 MG PO PRN Q24HRS PRN for HEARTBURN / GAS, (Reported) Magnesium Hydroxide (Milk Of Magnesia), 15 ML PO PRN DAILY PRN for CONSTIPATION, (Reported) Methyl Salicylate (Neuro Max), 85 GM TP PRN Q6HRS PRN for PAIN, (Reported) Olanzapine (Olanzapine), 0.5 TAB PO PRN Q2HR PRN for ANXIETY / AGITATION, ( Reported) Oxycodone/Apap 5-325 (Percocet 5-325 Mg Tablet), 1 TAB PO PRN Q12HR PRN for PAIN , (Reported) Discontinued Medications Oxycodone Hcl (Oxycontin), 10 MG PO BID, (Reported) Pantoprazole Sodium (Pantoprazole Sodium), 1 TAB PO DAILY, (Reported) Sennosides (Senna), 8.6 MG PO BID, (Reported) Trazodone Hcl (Trazodone Hcl), 1 TAB PO QHS, (Reported) Time Spent Total time spent with patient 34minutes for coordination of care, counseling, and education. AMANDA MERCEDES MD Dec 03, 2016 12:54
== END 2016-12-03 14:40 | DRG 92 ==
LOC: ER 19:53 → 1 WEST ICU 23:03 → 6 SOUTH 12-01 11:45
PROVIDERS: ADMIT Internal Medicine; ATTEND Internal Medicine
DX: G92 Toxic encephalopathy (principal); N39.0 Urinary tract infection, site not specified; R45.851 Suicidal ideations; I69.354 Hemiplegia and hemiparesis following cerebral infarction affecting left non-dominant side; E78.00 Pure hypercholesterolemia, unspecified; E78.5 Hyperlipidemia, unspecified; E11.9 Type 2 diabetes mellitus without complications; F31.9 Bipolar disorder, unspecified; E03.9 Hypothyroidism, unspecified; E87.6 Hypokalemia; F41.9 Anxiety disorder, unspecified; T43.595A Adverse effect of other antipsychotics and neuroleptics, initial encounter; G89.29 Other chronic pain; I10 Essential (primary) hypertension; M54.5 Low back pain; K21.9 Gastro-esophageal reflux disease without esophagitis; K59.09 Other constipation; Z66 Do not resuscitate; Z82.49 Family history of ischemic heart disease and other diseases of the circulatory system; Y92.89 Other specified places as the place of occurrence of the external cause
CPT/HCPCS: 36415; 51702; 70450; 71010; 72125; 72170; 80048; 81001; 83605; 84145; 84443; 84484; 85027; 87040; 87641; 93005; 96361; 96365; 96375; 96376; 99292; A6539; G0481; J0360; J0610; J0690; J0696; J2060; J7030; J7040; 99291-25

== ENCOUNTER 2016-12-18 17:29 | Emergency (ER) | payer MEDICARE, BC, OTHER ==
[~2016-12-18] VITALS: Ht 172.7 cm; Wt 63.5 kg
[~2016-12-18 17:29] MED LIST changes: +ACET325T9 PO; +ALBU2.5V14 NEB; +BENZ1LOZ48 MM; +CETI10TA16 PO; +DIVA500T17 PO; +GUAI600T47 PO; +IPRA0.2S5 NEB; +LACT1TAB6 PO; +LISI10TA2 PO; +LOPE2CAP3 PO; +MAG360OR24 PO; +OLAN5TAB9 PO; +OXYC-323 PO; +QUET50TA5 PO; +SENN8.6T99 PO
--- NOTE | 2016-12-18 18:28 | ED.ADGEN ---
Past Medical History Past Medical History: Anxiety, Bipolar, Constipation, Depression, Diabetes- Type II, GERD, High Cholesterol, Hypertension, Hypothyroid, Stroke, Other Additional Past Medical Histor: CHRONIC BACK PAIN, PYSCH HX Past Surgical History: Lumbar Laminectomy, Other Additional Past Surgical Histo: LEFT SHOULDER REPAIR, L hip repair-plate and screws Alcohol Use: None Drug Use: None Adult General Chief Complaint Chief Complaint: LOWER BACK PAIN OR INJURY HPI HPI Patient is a 76 year old [woman, history of type 2 diabetes mellitus, hypertension, hypothyroidism, bipolar disorder, chronic back pain, who presents to the emergency department with a complaint of back and abdominal pain that began yesterday. She states the back pain is different from her typical chronic back pain, describes it as "lower down", states that it is making her feel weak in her lower extremities due to pain. Patient appears to be at baseline under function per nursing report, patient does ambulate with a wheelchair at baseline. She states she received Tylenol at her nursing facility earlier today without relief. She denies any fevers, states she is feeling nauseous, denies any vomiting, denies any blood in her stool, numbness, tingling, chest pain or shortness of breath. Denies similar symptoms previously. Patient states yesterday that she went down to the cafeteria to get breakfast, states that the room was "very hot", states that she then experienced multiple bowel movements throughout the day, described as well formed, brown stool, states she is experiencing cramping lower abdominal pain. No fevers or chills, no shortness of breath or chest pain. Review of Systems Review of Systems Constitutional: Denies fever or chills. [] Eyes: Denies change in visual acuity. [] HENT: Denies nasal congestion or sore throat. [] Respiratory: Denies cough or shortness of breath. [] Cardiovascular: Denies chest pain or edema. [] GI: Lower abdominal pain, nausea, no vomiting, no bloody stools, positive for multiple well-formed stools since yesterday. : Denies dysuria. [] Musculoskeletal: Worsening of low back pain, states it is in the lower area than her chronic back pain. No joint pain. Integument: Denies rash. [] Neurologic: Denies headache, sensory changes. States pain is making her legs feel weak. Endocrine: Denies polyuria or polydipsia. [] Lymphatic: Denies swollen glands. [] Psychiatric: Denies depression or anxiety. [] Current Medications Current Medications Current Medications Medications (Trade) Dose Ordered Sig/Anne Start Time Stop Time Status Last Admin Dose Admin Diphenhydramine HCl (Benadryl) 25 mg 1X ONCE 12/18/16 21:00 12/18/16 21:01 DC Fentanyl Citrate (Fentanyl 2ml Vial) 25 mcg PRN Q15MIN PRN 12/18/16 18:30 12/19/16 00:28 DC 12/18/16 22:47 25 MCG Info (Do NOT chart on this entry -- for MONITORING) 1 each PRN DAILY PRN 12/18/16 19:30 12/19/16 00:28 DC Iohexol (Omnipaque 300 Mg/ml) 75 ml 1X ONCE 12/18/16 19:15 12/18/16 19:16 DC 12/18/16 19:45 75 ML Ondansetron HCl (Zofran) 4 mg 1X ONCE 12/18/16 18:30 12/18/16 18:31 DC 12/18/16 18:48 4 MG Prochlorperazine Edisylate (Compazine) 10 mg 1X ONCE 12/18/16 21:00 12/18/16 21:01 DC Sodium Chloride 1,000 ml @ 100 mls/hr Q10H 12/18/16 18:30 12/19/16 00:28 DC 12/18/16 18:48 100 MLS/HR Allergies Allergies Allergies Coded Allergies Type Severity Reaction Last Updated Verified I S O L A T I O N *CONTACT* Allergy Unknown 09/03/16 Yes No Known Medication Allergies Allergy Unknown 09/03/16 Yes Physical Exam Physical Exam Constitutional: Well developed, well nourished, no acute distress, non-toxic appearance. [] HENT: Normocephalic, atraumatic, bilateral external ears normal, oropharynx moist, no oral exudates, nose normal. [] Eyes: PERRLA, EOMI, conjunctiva normal, no discharge. [] Neck: Normal range of motion, no tenderness, supple, no stridor. [] Cardiovascular:Heart rate regular rhythm, no murmur , S1, S2, rubs or gallops. [ ] Lungs & Thorax: Bilateral breath sounds clear to auscultation, no wheezing, rhonchi, rales. No chest wall crepitus or tenderness. [] Abdomen: Bowel sounds normal, soft, mild tenderness all patient throughout the lower abdomen, no rebound, rigidity, no guarding, no masses, no pulsatile masses. [] Skin: Warm, dry, no erythema, no rash. [] Back: No tenderness, no CVA tenderness. [] Extremities: No midline or paraspinal tenderness in the thoracic or cervical region, in the lumbar region and sacral region patient is complaining of tenderness throughout the entire region, no step-offs or deformities, no tissue tension or spasm noted, no tenderness to palpation of the piriformis region, no cyanosis, no clubbing, ROM intact, no edema. Negative Homans sign. [] Neurologic: Alert and oriented X 3, normal motor function, normal sensory function, patient is moving all extremities, 4-5 strength in the bilateral lower extremities, normal sensation. Psychologic: Affect normal, judgement normal, mood normal. [] Rectal examination: Patient with normal tone, empty vault, no gross blood. Current Patient Data Vital Signs Vital Signs Date Time Temp Pulse Resp B/P (MAP) Pulse Ox O2 Delivery O2 Flow Rate FiO2 12/18/16 23:30 70 18 135/65 (88) 95 Room Air 12/18/16 17:29 98.3 98.3 Lab Values Laboratory Tests Test 12/18/16 18:35 12/18/16 19:06 White Blood Count 8.6 x10^3/uL (4.0-11.0) Red Blood Count 4.05 x10^6/uL (3.50-5.40) Hemoglobin 13.0 g/dL (12.0-15.5) Hematocrit 38.5 % (36.0-47.0) Mean Corpuscular Volume 95 fL (79-100) Mean Corpuscular Hemoglobin 32 pg (25-35) Mean Corpuscular Hemoglobin Concent 34 g/dL (31-37) Red Cell Distribution Width 16.4 % (11.5-14.5) H Platelet Count 265 x10^3/uL (140-400) Neutrophils (%) (Auto) 66 % (31-73) Lymphocytes (%) (Auto) 21 % (24-48) L Monocytes (%) (Auto) 12 % (0-9) H Eosinophils (%) (Auto) 1 % (0-3) Basophils (%) (Auto) 1 % (0-3) Neutrophils # (Auto) 5.7 x10^3uL (1.8-7.7) Lymphocytes # (Auto) 1.8 x10^3/uL (1.0-4.8) Monocytes # (Auto) 1.0 x10^3/uL (0.0-1.1) Eosinophils # (Auto) 0.1 x10^3/uL (0.0-0.7) Basophils # (Auto) 0.1 x10^3/uL (0.0-0.2) Sodium Level 133 mmol/L (136-145) L Potassium Level 3.9 mmol/L (3.5-5.1) Chloride Level 96 mmol/L (98-107) L Carbon Dioxide Level 28 mmol/L (21-32) Anion Gap 9 (6-14) Blood Urea Nitrogen 12 mg/dL (7-20) Creatinine 0.8 mg/dL (0.6-1.0) Estimated GFR (Cockcroft-Gault) 69.9 BUN/Creatinine Ratio 15 (6-20) Glucose Level 90 mg/dL (70-99) Calcium Level 8.9 mg/dL (8.5-10.1) Total Bilirubin 0.4 mg/dL (0.2-1.0) Aspartate Amino Transferase (AST) 21 U/L (15-37) Alanine Aminotransferase (ALT) 22 U/L (14-59) Alkaline Phosphatase 54 U/L (46-116) Troponin I Quantitative < 0.017 ng/mL (0.000-0.055) Total Protein 7.3 g/dL (6.4-8.2) Albumin 3.6 g/dL (3.4-5.0) Albumin/Globulin Ratio 1.0 (1.0-1.7) Lipase 202 U/L (73-393) Urine Color Yellow Urine Clarity Clear Urine pH 7.5 Urine Specific Linch <=1.005 Urine Protein Negative mg/dL (NEG-TRACE) Urine Glucose (UA) Negative mg/dL (NEG) Urine Ketones (Stick) Negative mg/dL (NEG) Urine Blood Negative (NEG) Urine Nitrite Negative (NEG) Urine Bilirubin Negative (NEG) Urine Urobilinogen Dipstick 0.2 mg/dL (0.2 mg/dL) Urine Leukocyte Esterase Negative (NEG) Urine RBC 0 /HPF (0-2) Urine WBC Occ /HPF (0-4) Urine Squamous Epithelial Cells Occ /LPF Urine Bacteria 0 /HPF (0-FEW) Laboratory Tests 12/18/16 18:35 Laboratory Tests 12/18/16 18:35 EKG EKG EC: Sinus rhythm, heart rate 81 bpm, upright axis, QTC of 440, CA 150, QRS of 94, contour abnormalities noted in the anterior septal leads, no ST elevations or depressions, abnormal ECG, does not meet STEMI criteria. As interpreted by me. Radiology/Procedures Radiology/Procedures [][facility] [address] [place], [place] [id number] IMAGING REPORT Signed PATIENT: JESSICA MULLER ACCOUNT: [id number] : 1940 LOCATION: ER AGE: 76 SEX: F EXAM STATUS: REG ER ORD. PHYSICIAN: BANDAR BEAL DO REASON: abd/back pain/diarrhea PROCEDURE: CT ABD PELV W/ IV CONTRST ONLY EXAM: CT ABDOMEN/PELVIS WITH CONTRAST. HISTORY: Severe low back pain. Difficulty urinating. Abdominal pain and diarrhea. TECHNIQUE: Computed tomography of the abdomen and pelvis was performed after the intravenous administration of 75 mL Omnipaque 300. COMPARISON: March 23, 2009. FINDINGS: Lung windows through the visualized portions of the bases reveal scattered calcified granulomas and mild dependent atelectasis. There are atherosclerotic calcifications of the coronary arteries. Bone windows reveal no suspicious lesions. There is internal fixation of a chronic healed left iliac wing fracture. Instrumented posterior fusion is noted on the left at L2-3. There is a moderate lumbar levoscoliosis. Degenerative disc disease is severe at T12-L1 and moderate to severe elsewhere throughout the thoracic spine. Central canal stenosis is at least moderate at L1-2 and appears moderate to severe at T12-L1. These degenerative changes have progressed since March 23, 2009. The liver, gallbladder, spleen, adrenal glands and pancreas are unremarkable. There is a 1 cm cyst in the left kidney. There are no pathologically enlarged lymph nodes. A small umbilical hernia contains only fat. The appendix is not inflamed. There is no obstruction. The bladder is moderately distended but otherwise unremarkable. The distal colon is decompressed. IMPRESSION: 1. Severe degenerative changes of the lumbar spine are worst at T12-L1 and have significantly progressed since 2008. Central canal stenosis appears moderate to severe at this level and at least moderate at L1-2. Correlate to exclude conus medullaris/cauda equina syndrome if there is urinary retention. 2. Questionable mild wall thickening of the distal colon may be only from luminal decompression. Correlate clinically to exclude mild colitis. *One or more of the following individualized dose reduction techniques were utilized for this examination: 1. Automated exposure control. 2. Adjustment of the mA and/or kV according to patient size. 3. Use of iterative reconstruction technique. Electronically signed by: Sage Hay MD (12/18/2016 8:13 PM) [facility] DICTATED and SIGNED BY: LIEN HAY MD DATE: 12/18/161955 CC: BANDAR BEAL DO; LEROY ALEMAN ~ Course & Med Decision Making Course & Med Decision Making Pertinent Labs and Imaging studies reviewed. (See chart for details) Patient resting more comfortably receiving pain medication, with improvement of her blood pressure. After discussion with patient at bedside, will proceed with CT of abdomen and pelvis, to evaluate both her back pain and her abdominal pain. Laboratory studies also obtained. Patient states that she did void before coming to the ED. Unable to void in the ED, straight catheter attempted in the ED without success, there is no urine the bladder. Laboratory studies revealed mild hyponatremia with a sodium 133, urinalysis when obtained via second straight catheter attempt was unremarkable, no leukocytosis, electrolytes within normal limits. CT of the abdomen and pelvis reveals worsening of patient' s spinal stenosis when compared to imaging from 2009, at T12-L1, at L1-L2, with concern for conus medullaris/cauda equina syndrome based on imaging. As stated, patient does have good rectal tone, is complaining of some increased weakness in the legs, difficult to determine if this is due to pain, as patient does not ambulate at baseline and is wheelchair-bound, does have sensation intact in the legs, and motor function which appears to be consistent with baseline. Patient did void in the ED, 300 mL, post void bladder scan revealed a residual of 606. As far as we can determine based on jail report and patient report, urinary retention is a previously nondependent issue. I did discuss findings as above with Dr. Rivera of neurosurgery, he did review the images, he states the patient requires transfer to a location where MRI is available, as currently [facility] does not have MRI capabilities due to a malfunction of our machine. At his recommendation, I did contact the transfer line at [phone], and spoke with the triage nurse Rajesh. Initially I was putting contact with the neurosurgeon on-call, Dr. Herrera, and was informed that spinal surgery was being covered by the spinal orthopedic service. I then spoke with Dr. Rosenthal, of spinal surgery,and relayed the information, including our inability to obtain an MRI at [facility], and the recommendations of our covering neurosurgeon. He stated that based on the information provided, he felt that more could be provided at [facility], and did decline to accept transfer of the patient. I did discuss with Dr. Rosenthal that keeping the patient at [facility] would prevent the patient from her receiving most appropriate imaging and evaluation based on the recommendation of our institution's covering neurosurgeon, and that refusal to accept the patient for transfer for higher level of care for the appropriate evaluation of potentially serious medical condition would constitute an EMTALA violation. He reiterated that he would be unable to accept this patient for transfer, and requested the patient be transferred to the ED to receive an MRI. I discussed further with triage nurse Rajesh of the transfer line that this would again constitute an EMTALA, he subsequently did speak with both emergency medicine physician's at , and internal medicine service, and and returned my phone call, I then did reiterate again at this constituted a significant delay in patient's care at this point, as we have been attempting to transfer the patient and patient has now been in the emergency department for 5-1/2 hours. His discussion with the emergency physician's had come to the same conclusion, transfer to the ED would be inappropriate and an EMTALA violation, and subsequently he did provide an accepting physician for the patient on internal medicine service and a bed number, around [id number]. EMS was contacted immediately after this information was relayed, and arrangements made for an emergent transport for the patient to [facility]. Patient stable , acting comfortably at time of transfer to EMS. Dragon Disclaimer Dragon Disclaimer This electronic medical record was generated, in whole or in part, using a voice recognition dictation system. Departure Disposition: 05 TRANSFER OTHER Condition: STABLE BANDAR BEAL DO Dec 18, 2016 18:28
[2016-12-18] MEDS ORDERED: ONDANSETRON PF 4 MG/2 ML VIAL. IV ONE (18:30)
[2016-12-18] MEDS ORDERED: IV NORMAL SALINE 1000ML BAG 1,000 ML IV SCH (18:30)
[2016-12-18] MEDS: fentaNYL PF VIAL 100 MCG/2 ML VIAL IV PRN ×3 (18:48→22:47)
[2016-12-18 18:59] LABS: BASO # 0.1 x10^3/uL (0.0-0.2); BASO % 1 % (0-3); EOS % 1 % (0-3); HEMATOCRIT 38.5 % (36.0-47.0); LYMPH # 1.8 x10^3/uL (1.0-4.8); LYMPH % 21 % (24-48); MEAN CORPUSCULAR HEMOGLOBIN 32 pg (25-35); MEAN CORPUSCULAR HGB CONC 34 g/dL (31-37); MEAN CORPUSCULAR VOLUME 95 fL (79-100); MONO % 12 % (0-9); NEUT % 66 % (31-73); PLATELET COUNT 265 x10^3/uL (140-400); RED BLOOD COUNT 4.05 x10^6/uL (3.50-5.40); RED CELL DISTRIBUTION WIDTH 16.4 % (11.5-14.5); WHITE BLOOD COUNT 8.6 x10^3/uL (4.0-11.0)
[2016-12-18 19:12] LABS: CALCIUM 8.9 mg/dL (8.5-10.1); CREATININE 0.8 mg/dL (0.6-1.0); GFR 69.9; POTASSIUM 3.9 mmol/L (3.5-5.1)
[2016-12-18 19:15] LABS: BILIRUBIN,URINE NEGATIVE (NEG); GLUCOSE,URINE NEGATIVE (NEG); NITRITE,URINE NEGATIVE (NEG); PH,URINE 7.5; PROTEIN,URINE NEGATIVE (NEG-TRACE); UROBILINOGEN,URINE 0.2 mg/dL (0.2 mg/dL)
[2016-12-18] MEDS ORDERED: IOHEXOL 300 MG/ML 75 ML VIAL IV ONE (19:15)
[2016-12-18 19:18] LABS: ALBUMIN 3.6 g/dL (3.4-5.0); TOTAL BILIRUBIN 0.4 mg/dL (0.2-1.0); TOTAL PROTEIN 7.3 g/dL (6.4-8.2)
[2016-12-18 19:24] LABS: BACTERIA,URINE 0 /HPF (0-FEW); RBC,URINE 0 /HPF (0-2); SQUAMOUS EPITHELIAL CELL,UR OCC /LPF; WBC,URINE OCC /HPF (0-4)
[2016-12-18] MEDS ORDERED: CONTRAST GIVEN MC PRN (19:30)
--- NOTE | 2016-12-18 20:16 | RAD ---
EXAM: CT ABDOMEN/PELVIS WITH CONTRAST. HISTORY: Severe low back pain. Difficulty urinating. Abdominal pain and diarrhea. TECHNIQUE: Computed tomography of the abdomen and pelvis was performed after the intravenous administration of 75 mL Omnipaque 300. COMPARISON: March 23, 2009. FINDINGS: Lung windows through the visualized portions of the bases reveal scattered calcified granulomas and mild dependent atelectasis. There are atherosclerotic calcifications of the coronary arteries. Bone windows reveal no suspicious lesions. There is internal fixation of a chronic healed left iliac wing fracture. Instrumented posterior fusion is noted on the left at L2-3. There is a moderate lumbar levoscoliosis. Degenerative disc disease is severe at T12-L1 and moderate to severe elsewhere throughout the thoracic spine. Central canal stenosis is at least moderate at L1-2 and appears moderate to severe at T12-L1. These degenerative changes have progressed since March 23, 2009. The liver, gallbladder, spleen, adrenal glands and pancreas are unremarkable. There is a 1 cm cyst in the left kidney. There are no pathologically enlarged lymph nodes. A small umbilical hernia contains only fat. The appendix is not inflamed. There is no obstruction. The bladder is moderately distended but otherwise unremarkable. The distal colon is decompressed. IMPRESSION: 1. Severe degenerative changes of the lumbar spine are worst at T12-L1 and have significantly progressed since 2008. Central canal stenosis appears moderate to severe at this level and at least moderate at L1-2. Correlate to exclude conus medullaris/cauda equina syndrome if there is urinary retention. 2. Questionable mild wall thickening of the distal colon may be only from luminal decompression. Correlate clinically to exclude mild colitis. *One or more of the following individualized dose reduction techniques were utilized for this examination: 1. Automated exposure control. 2. Adjustment of the mA and/or kV according to patient size. 3. Use of iterative reconstruction technique. Electronically signed by: Sage Hay MD (12/18/2016 8:13 PM) [facility]
[2016-12-18] MEDS ORDERED: PROCHLORPERAZINE 10 MG/2 ML VIAL. IV ONE (21:00)
[2016-12-18] MEDS ORDERED: diphenhydrAMINE 50 MG/ML VIAL IVP ONE (21:00)
[2016-12-18 23:30] VITALS: BP 135/65
--- NOTE | 2016-12-19 06:35 | EKG ---
[facility] [address] [place] [address] Test Date: 2016-12-18 Test Time: 18:35:23 Pat Name: JESSICA MULLER Department: Room: Gender: F Consulting Solution Manager: : 1940 Requested By: BANDAR BEAL Order Number: [id number] Reading MD: Jesus Luong Measurements Intervals Miller Rate: 81 P: 90 PA: 150 QRS: 69 QRSD: 94 T: 64 QT: 374 QTc: 440 Interpretive Statements SINUS RHYTHM Electronically Signed On 12-20-2016 8:52:48 CDT by Jesus Luong
== END 2016-12-18 23:34 | disposition short-term general hospital (02) ==
LOC: ER 17:29
DX: G89.29 Other chronic pain (principal); M54.5 Low back pain; R10.30 Lower abdominal pain, unspecified; R53.1 Weakness; E03.9 Hypothyroidism, unspecified; E11.9 Type 2 diabetes mellitus without complications; E78.00 Pure hypercholesterolemia, unspecified; F31.9 Bipolar disorder, unspecified; F41.9 Anxiety disorder, unspecified; I10 Essential (primary) hypertension; K21.9 Gastro-esophageal reflux disease without esophagitis; Z86.73 Personal history of transient ischemic attack (TIA), and cerebral infarction without residual deficits; Z91.041 Radiographic dye allergy status
CPT/HCPCS: 36415; 51702; 74177; 80053; 81001; 83690; 84484; 85027; 93005; 96361; 96374; 96375; 96376; 99285; J2405; J3010; J7030; Q9967

== ENCOUNTER → 2017-09-23 | Outpatient (CLI) | payer MEDICARE, BC, OTHER ==
[~2017-09-23] MED LIST changes: -ACET325C PO; -ACET325T9 PO; -ALBU2.5V14 NEB; -ALPR0.5T6 PO; -AMLO5TAB2 PO; -ASPI-630 PO; -ASPI325T70 PO; -BENZ1LOZ48 MM; -BUSP15TA PO; -CARV6.252 PO; -CETI10TA16 PO; -CYCL10TA2 PO; -DIVA500T17 PO; -DOXY100C2 PO; -DULO30CA43 PO; -FLUO40CA2 PO; -FOLI1TAB16 PO; -FURO-68 PO; -GABA-586 PO; +GADOBUTROL 7.5 MMOL/7.5 ML VIAL IV; -GUAI600T47 PO; -HYDR-2762 PO; -IPRA0.2S5 NEB; -LACT1TAB6 PO; -LEVO50TA5 PO; -LISI10TA2 PO; -LISI40TA PO; -LOPE2CAP3 PO; -LORA0.5T PO; -LORA2ORA7 PO; -MAG360OR24 PO; -MAGN2400 PO; -MAGN400O7 PO; -METF500T4 PO; -MIRT15TA PO; -MULT-658 PO; -MULT9LIQ5 PO; -NABU750T PO; -NEOM28OI4 TP; -OLAN5TAB9 PO; -OMEP40CA5 PO; -OXYC-323 PO; -OXYC-327 PO; -OXYC10TA45 PO; -OXYC1TAB7 PO; -OXYC5CAP PO; -PANT40TA5 PO; -PERP1TAB3 PO; -POLY17PO29 PO; -POTA20TA12 PO; -QUET100T PO; -QUET50TA PO; -QUET50TA5 PO; -SENN-79 PO; -SENN8.6T99 PO; -SIMV80TA3 PO; -TRAZ50TA15 PO; -TRIA1TAB3 PO; -[UNRECOGNIZED DRUG - CODE] PO; -[UNRECOGNIZED DRUG - CODE] PO; -[UNRECOGNIZED DRUG - CODE] TP; -[UNRECOGNIZED DRUG - OTHER]; -doxycycline; -omeprazole
== END | disposition home or self-care (01) ==
LOC: MRI 10:02
DX: K85.90 Acute pancreatitis without necrosis or infection, unspecified (principal); N28.1 Cyst of kidney, acquired
CPT/HCPCS: 74181

== ENCOUNTER 2017-09-26 21:20 | Emergency (ER) | payer MEDICARE, BC, OTHER ==
[2017-09-26 22:36] LABS: ADD MAN DIFF? NO
[2017-09-26 22:37] LABS: BASO # 0.1 x10^3/uL (0.0-0.2); BASO % 1 % (0-3); EOS # 0.4 x10^3/uL (0.0-0.7); EOS % 6 % (0-3); HEMATOCRIT 31.3 % (36.0-47.0); HEMOGLOBIN 10.5 g/dL (12.0-15.5); LYMPH # 1.7 x10^3/uL (1.0-4.8); LYMPH % 23 % (24-48); MEAN CORPUSCULAR HEMOGLOBIN 31 pg (25-35); MEAN CORPUSCULAR HGB CONC 33 g/dL (31-37); MEAN CORPUSCULAR VOLUME 93 fL (79-100); MONO # 0.9 x10^3/uL (0.0-1.1); MONO % 12 % (0-9); NEUT # 4.6 x10^3uL (1.8-7.7); NEUT % 59 % (31-73); PLATELET COUNT 326 x10^3/uL (140-400); RED BLOOD COUNT 3.37 x10^6/uL (3.50-5.40); RED CELL DISTRIBUTION WIDTH 14.4 % (11.5-14.5); WHITE BLOOD COUNT 7.7 x10^3/uL (4.0-11.0)
[2017-09-26 22:46] LABS: ANION GAP 11 (6-14); BLOOD UREA NITROGEN 13 mg/dL (7-20); BUN/CREATININE RATIO 12 (6-20); CARBON DIOXIDE 27 mmol/L (21-32); CHLORIDE 106 mmol/L (98-107); CREATININE 1.1 mg/dL (0.6-1.0); GFR 48.3; GLUCOSE 114 mg/dL (70-99); POTASSIUM 4.7 mmol/L (3.5-5.1); SODIUM 144 mmol/L (136-145)
[2017-09-26 22:52] LABS: ALBUMIN 3.2 g/dL (3.4-5.0); ALBUMIN/GLOBULIN RATIO 0.9 (1.0-1.7); ALK PHOS 64 U/L (46-116); ALT (SGPT) 21 U/L (14-59); AST (SGOT) 22 U/L (15-37); LIPASE 273 U/L (73-393); TOTAL BILIRUBIN 0.2 mg/dL (0.2-1.0); TOTAL PROTEIN 6.8 g/dL (6.4-8.2)
[2017-09-26] MEDS: IV NORMAL SALINE 1000ML BAG 1,000 ML IV (22:53)
[2017-09-26] MEDS: ONDANSETRON PF 4 MG/2 ML VIAL. IV (22:53)
[2017-09-26 22:54] LABS: TROPONINI < 0.017 ng/mL (0.000-0.055)
[2017-09-26] MEDS: DICYCLOMINE HCL 10 MG CAPSULE PO (23:27)
[2017-09-26] MEDS: LOPERAMIDE 2 MG CAPSULE PO (23:28)
== END 2017-09-27 00:06 | disposition home or self-care (01) ==
LOC: ER 09-27 00:06
DX: R11.0 Nausea (principal); R10.9 Unspecified abdominal pain; F41.9 Anxiety disorder, unspecified; F31.9 Bipolar disorder, unspecified; E11.9 Type 2 diabetes mellitus without complications; K21.9 Gastro-esophageal reflux disease without esophagitis; E78.00 Pure hypercholesterolemia, unspecified; E03.9 Hypothyroidism, unspecified; Z86.73 Personal history of transient ischemic attack (TIA), and cerebral infarction without residual deficits; G89.29 Other chronic pain; I10 Essential (primary) hypertension; Z91.041 Radiographic dye allergy status
CPT/HCPCS: 36415; 80053; 83690; 84484; 85025; 93005; 96374; 99285-25; J2405; J7030

== ENCOUNTER 2017-11-07 09:52 | Emergency (ER) | payer MEDICARE, BC, OTHER ==
[2017-11-07] MEDS ORDERED: CONTRAST GIVEN. MC (10:15)
[2017-11-07] MEDS: IV NORMAL SALINE 1000ML BAG 1,000 ML IV (10:22)
[2017-11-07] MEDS: ONDANSETRON PF 4 MG/2 ML VIAL. IV (10:22)
[2017-11-07 10:27] LABS: ADD MAN DIFF? NO
[2017-11-07 10:36] LABS: ANION GAP 10 (6-14); BLOOD UREA NITROGEN 11 mg/dL (7-20); BUN/CREATININE RATIO 12 (6-20); CARBON DIOXIDE 27 mmol/L (21-32); CHLORIDE 103 mmol/L (98-107); CREATININE 0.9 mg/dL (0.6-1.0); GFR 60.9; GLUCOSE 97 mg/dL (70-99); POTASSIUM 3.7 mmol/L (3.5-5.1); SODIUM 140 mmol/L (136-145)
[2017-11-07 10:37] LABS: BASO # 0.1 x10^3/uL (0.0-0.2); BASO % 1 % (0-3); EOS # 0.1 x10^3/uL (0.0-0.7); EOS % 1 % (0-3); HEMATOCRIT 35.5 % (36.0-47.0); HEMOGLOBIN 11.9 g/dL (12.0-15.5); LYMPH # 1.2 x10^3/uL (1.0-4.8); LYMPH % 20 % (24-48); MEAN CORPUSCULAR HEMOGLOBIN 30 pg (25-35); MEAN CORPUSCULAR HGB CONC 33 g/dL (31-37); MEAN CORPUSCULAR VOLUME 90 fL (79-100); MONO # 0.6 x10^3/uL (0.0-1.1); MONO % 10 % (0-9); NEUT # 4.2 x10^3uL (1.8-7.7); NEUT % 67 % (31-73); PLATELET COUNT 243 x10^3/uL (140-400); RED BLOOD COUNT 3.94 x10^6/uL (3.50-5.40); RED CELL DISTRIBUTION WIDTH 14.9 % (11.5-14.5); WHITE BLOOD COUNT 6.2 x10^3/uL (4.0-11.0)
[2017-11-07 10:42] LABS: ALBUMIN 3.7 g/dL (3.4-5.0); ALK PHOS 54 U/L (46-116); ALT (SGPT) 21 U/L (14-59); AST (SGOT) 18 U/L (15-37); LIPASE 238 U/L (73-393); TOTAL BILIRUBIN 0.3 mg/dL (0.2-1.0); TOTAL PROTEIN 7.4 g/dL (6.4-8.2)
[2017-11-07 10:59] LABS: BILIRUBIN,URINE NEGATIVE (NEG); CLARITY,URINE CLEAR; COLOR,URINE YELLOW; GLUCOSE,URINE NEGATIVE (NEG); NITRITE,URINE NEGATIVE (NEG); PH,URINE 7.5; PROTEIN,URINE NEGATIVE (NEG-TRACE); UROBILINOGEN,URINE 0.2 mg/dL (0.2 mg/dL)
[2017-11-07 11:06] LABS: BACTERIA,URINE 0 /HPF (0-FEW); RBC,URINE 0 /HPF (0-2); SQUAMOUS EPITHELIAL CELL,UR FEW /LPF; WBC,URINE 0 /HPF (0-4)
[2017-11-07] MEDS: IOHEXOL 300 MG/ML 100ML VIAL. IV (11:06)
[2017-11-07 11:23] LABS: TROPONIN BY ISTAT 0.01 ng/ml (<0.08)
== END 2017-11-07 13:07 | disposition home or self-care (01) ==
LOC: ER 09:52
DX: R10.13 Epigastric pain (principal); R10.84 Generalized abdominal pain; R11.2 Nausea with vomiting, unspecified; F31.9 Bipolar disorder, unspecified; K21.9 Gastro-esophageal reflux disease without esophagitis; E78.00 Pure hypercholesterolemia, unspecified; G89.29 Other chronic pain; E11.42 Type 2 diabetes mellitus with diabetic polyneuropathy; E03.9 Hypothyroidism, unspecified; Z86.73 Personal history of transient ischemic attack (TIA), and cerebral infarction without residual deficits; Z98.890 Other specified postprocedural states; Z91.041 Radiographic dye allergy status
CPT/HCPCS: 36415; 51701; 74177; 80053; 81001; 83690; 84484; 85025; 93005; 96361; 96374; 99285-25; J2405; J7030; Q9967

== ENCOUNTER 2019-07-05 21:49 | Emergency (ER) | payer MEDICARE, BC ==
[~2019-07-05] VITALS: Ht 167.6 cm; Wt 47.2 kg
[~2019-07-05 21:49] MED LIST changes: +ACET325C PO; +ACET325T9 PO; +ALBU2.5V14 NEB; +ALPR0.5T6 PO; +AMLO5TAB10 PO; +AMOX1TAB11 PO; +ASPI-630 PO; +ASPI325T70 PO; +ATOR40TA59 PO; +BENZ1LOZ48 MM; +BISA-97 PO; +BISA10SU71 RC; +BUSP10TA PO; +BUSP15TA PO; +CARV6.2511 PO; +CELE200C PO; +CETI10TA16 PO; +CETI10TA24 PO; +CIPR7.5D EACH EAR; +CLOP75TA PO; +CRAN405C PO; +CYCL10TA2 PO; +DICY20TA3 PO; +DIVA-53 PO; +DIVA500T17 PO; +DOCU-109 PO; +DOXY100C2 PO; +DULO30CA2 PO; +DULO30CA44 PO; +FERR325T72 PO; +FLUO40CA2 PO; +FLUT16SP NS; +FOLI1TAB16 PO; +FURO-68 PO; +GABA300C18 PO; +GABA600T7 PO; -GADOBUTROL 7.5 MMOL/7.5 ML VIAL IV; +GUAI600T47 PO; +HYDR-2761 PO; +HYDR-2765 PO; +IBUP200T77 PO; +IPRA0.2S5 NEB; +IPRA3AMP29 NEB; +LACT1CAP25 PO; +LACT1TAB6 PO; +LEVO50TA5 PO; +LINE600T12 PO; +LINZESS145 MCG PO; +LISI-130 PO; +LISI-334 PO; +LISI10TA2 PO; +LOPE2CAP3 PO; +LORA-434 PO; +LORA0.5T PO; +LORA0.5T96 PO; +LORA2ORA7 PO; +MAG360OR24 PO; +MAGN24003 PO; +MAGN400O7 PO; +MELO7.5T29 PO; +METF500T16 PO; +METO25TA4 PO; +MIRT15TA PO; +MIRT15TA3 PO; +MULT-658 PO; +MULT9LIQ5 PO; +NABU750T PO; +NEOM28OI31 TP; +NITR0.4T22 SL; +NYST100054 PO; +NYST15PO9 TP; +OLAN5TAB9 PO; +OMEP40CA45 PO; +ONDA4TAB7 PO; +OXYC10TA46 PO; +OXYC1TAB15 PO; +OXYC1TAB19 PO; +OXYC1TAB7 PO; +OXYC5CAP PO; +PANT40TA77 PO; +PERP1TAB3 PO; +POLY17PO29 PO; +POTA20TA12 PO; +Pantoprazole PO; +QUET100T PO; +QUET25TA5 PO; +QUET50TA PO; +QUET50TA5 PO; +SENN-80 PO; +SENN8.6T99 PO; +SERT100T PO; +SERT50TA PO; +SIME80TA14 PO; +SIMV80TA17 PO; +SUCR1TAB PO; +TETR15DR65 OP; +TRAM50TA PO; +TRAZ-118 PO; +TRIA1TAB3 PO; +VANC500V PO; +[UNRECOGNIZED DRUG - CODE] PO; +[UNRECOGNIZED DRUG - CODE] TP; +[UNRECOGNIZED DRUG - OTHER]; +doxycycline; +omeprazole
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
--- NOTE | 2019-07-05 22:50 | RAD ---
Exam: CT head INDICATION: Fall on Plavix TECHNIQUE: Sequential axial images through the head were obtained without the administration of IV contrast. Comparisons: 05/17/2019 FINDINGS: No focal parenchymal lesion or hemorrhage is identified. There is no midline shift or sulcal effacement. Hypodensity in the right frontal lobe is noted, stable. No acute vascular territory infarction is identified. Regalado-white distinction is preserved. The ventricular system is within normal limits without compression hydrocephalus. The basal cisterns are well maintained. Extra cranial soft tissue contusion in the right frontal scalp. The visualized portions of the paranasal sinuses and mastoid air cells are well-pneumatized. No acute fractures. IMPRESSION: Extra cranial soft tissue contusion in the right frontal scalp without underlying osseous or intracranial abnormality. Exposure: One or more of the following in the visualized dose reduction techniques were utilized for this examination: 1. Automated exposure control 2. Adjustment of the MA and/or KV according to patient size Use of iterative of reconstructive technique Electronically signed by: Stephanie Jha MD (07/05/2019 10:47 PM) [id number]
[2019-07-05 22:55] LABS: BASO # 0.1 x10^3/uL (0.0-0.2); BASO % 1 % (0-3); EOS # 0.2 x10^3/uL (0.0-0.7); EOS % 4 % (0-3); HEMATOCRIT 36.3 % (36.0-47.0); HEMOGLOBIN 11.5 g/dL (12.0-15.5); LYMPH # 1.9 x10^3/uL (1.0-4.8); LYMPH % 28 % (24-48); MEAN CORPUSCULAR HEMOGLOBIN 28 pg (25-35); MEAN CORPUSCULAR HGB CONC 32 g/dL (31-37); MEAN CORPUSCULAR VOLUME 88 fL (79-100); MONO # 0.9 x10^3/uL (0.0-1.1); MONO % 13 % (0-9); NEUT # 3.6 x10^3/uL (1.8-7.7); NEUT % 54 % (31-73); PLATELET COUNT 218 x10^3/uL (140-400); RED BLOOD COUNT 4.13 x10^6/uL (3.50-5.40); RED CELL DISTRIBUTION WIDTH 22.4 % (11.5-14.5); WHITE BLOOD COUNT 6.8 x10^3/uL (4.0-11.0)
[2019-07-05 23:04] LABS: CREATININE 0.8 mg/dL (0.6-1.0); GFR 69.6; POTASSIUM 4.2 mmol/L (3.5-5.1); PROTHROMBIN TIME PATIENT 13.2 SEC (11.7-14.0)
[2019-07-05 23:10] LABS: ALBUMIN 3.6 g/dL (3.4-5.0); TOTAL BILIRUBIN 0.3 mg/dL (0.2-1.0); TOTAL PROTEIN 7.2 g/dL (6.4-8.2)
[2019-07-05 23:15] LABS: ANISOCYTOSIS MOD; PLT ESTIMATE ADEQUATE (ADEQUATE); SCHISTOCYTES OCC
[2019-07-05 23:38] LABS: BILIRUBIN,URINE NEGATIVE (NEG); CLARITY,URINE CLEAR; NITRITE,URINE NEGATIVE (NEG); PROTEIN,URINE NEGATIVE (NEG-TRACE); UROBILINOGEN,URINE 0.2 mg/dL (0.2 mg/dL)
[2019-07-05 23:42] LABS: COLOR,URINE STRAW
[2019-07-05 23:44] LABS: BACTERIA,URINE 0 /HPF (0-FEW); RBC,URINE OCC /HPF (0-2); WBC,URINE 0 /HPF (0-4)
[2019-07-06 00:51] VITALS: BP 164/71
== END 2019-07-06 01:07 | disposition home or self-care (01) ==
LOC: ER 21:49
DX: S00.03XA Contusion of scalp, initial encounter (principal); R51 Headache; F31.9 Bipolar disorder, unspecified; I10 Essential (primary) hypertension; E11.40 Type 2 diabetes mellitus with diabetic neuropathy, unspecified; K21.9 Gastro-esophageal reflux disease without esophagitis; E78.00 Pure hypercholesterolemia, unspecified; E03.9 Hypothyroidism, unspecified; Z86.73 Personal history of transient ischemic attack (TIA), and cerebral infarction without residual deficits; G89.29 Other chronic pain; Z91.041 Radiographic dye allergy status; W05.0XXA Fall from non-moving wheelchair, initial encounter; Y93.89 Activity, other specified; Y92.89 Other specified places as the place of occurrence of the external cause; Y99.8 Other external cause status
CPT/HCPCS: 36415; 70450; 80053; 81001; 85025; 85610; 99284; P9612

== ENCOUNTER 2019-08-02 19:56 | Emergency (ER) | payer MEDICARE, BC ==
[~2019-08-02] VITALS: Ht 167.6 cm; Wt 47.7 kg
[2019-08-02] MEDS ORDERED: fentaNYL PF VIAL 100 MCG/2 ML VIAL IM ONE (20:00)
[2019-08-02] MEDS ORDERED: fentaNYL PF VIAL 100 MCG/2 ML VIAL ONE (20:02)
[2019-08-02] MEDS ORDERED: NEOMY/BACITR/POLYMYXIN OINT PACKET. TP ONE (20:45)
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
[2019-08-02] MEDS ORDERED: cloNIDine HCL 0.1 MG TABLET PO ONE (21:30)
[2019-08-02 22:25] VITALS: BP 146/67
== END 2019-08-02 22:32 | disposition home or self-care (01) ==
LOC: ER 19:56
DX: T24.212A Burn of second degree of left thigh, initial encounter (principal); T24.211A Burn of second degree of right thigh, initial encounter; E11.42 Type 2 diabetes mellitus with diabetic polyneuropathy; F31.9 Bipolar disorder, unspecified; K21.9 Gastro-esophageal reflux disease without esophagitis; I10 Essential (primary) hypertension; E78.00 Pure hypercholesterolemia, unspecified; E03.9 Hypothyroidism, unspecified; Z86.73 Personal history of transient ischemic attack (TIA), and cerebral infarction without residual deficits; G89.29 Other chronic pain; Z91.041 Radiographic dye allergy status; X10.0XXA Contact with hot drinks, initial encounter; Y93.89 Activity, other specified; Y92.89 Other specified places as the place of occurrence of the external cause; Y99.8 Other external cause status
CPT/HCPCS: 16000; 82962; 96372; 99285; J3010

== ENCOUNTER 2019-11-17 02:37 | Emergency (ER) | payer MEDICARE, BC ==
[~2019-11-17] VITALS: Ht 172.7 cm; Wt 56.3 kg
[~2019-11-17 02:37] MED LIST changes: +SENN-182 PO; -SENN-80 PO
[2019-11-17] MEDS ORDERED: IV NORMAL SALINE 1000ML BAG 1,000 ML IV SCH (03:00)
--- NOTE | 2019-11-17 03:46 | RAD ---
EXAM: CHEST 1 VIEW History: Chest pain COMPARISON: 05/12/2019 TECHNIQUE: Single portable radiograph of the chest FINDINGS: The cardiac silhouette is unremarkable. Mild elevated left hemidiaphragm. Left lung base airspace opacity likely atelectasis or infiltrate. Left humerus hardware. IMPRESSION: Mild elevation of left hemidiaphragm with the left lung base airspace opacities likely atelectasis or infiltrate. Electronically signed by: Doug Wick MD (11/17/2019 3:43 AM) [id number]
[2019-11-17 04:32] LABS: BASO # 0.1 x10^3/uL (0.0-0.2); BASO % 1 % (0-3); EOS # 0.2 x10^3/uL (0.0-0.7); EOS % 1 % (0-3); HEMATOCRIT 36.1 % (36.0-47.0); HEMOGLOBIN 11.4 g/dL (12.0-15.5); LYMPH % 17 % (24-48); MEAN CORPUSCULAR HEMOGLOBIN 28 pg (25-35); MEAN CORPUSCULAR HGB CONC 32 g/dL (31-37); MEAN CORPUSCULAR VOLUME 89 fL (79-100); MONO # 1.2 x10^3/uL (0.0-1.1); MONO % 10 % (0-9); NEUT # 8.5 x10^3/uL (1.8-7.7); NEUT % 71 % (31-73); PLATELET COUNT 293 x10^3/uL (140-400); RED BLOOD COUNT 4.06 x10^6/uL (3.50-5.40); RED CELL DISTRIBUTION WIDTH 17.8 % (11.5-14.5); WHITE BLOOD COUNT 11.9 x10^3/uL (4.0-11.0)
[2019-11-17 04:43] LABS: CALCIUM 9.2 mg/dL (8.5-10.1); CREATININE 0.8 mg/dL (0.6-1.0); GFR 69.4; POTASSIUM 3.9 mmol/L (3.5-5.1)
[2019-11-17 04:49] LABS: ALBUMIN 2.9 g/dL (3.4-5.0); ALBUMIN/GLOBULIN RATIO 0.8 (1.0-1.7); MAGNESIUM 1.8 mg/dL (1.8-2.4); TOTAL BILIRUBIN 0.2 mg/dL (0.2-1.0); TOTAL PROTEIN 6.7 g/dL (6.4-8.2)
[2019-11-17] MEDS ORDERED: ONDANSETRON PF 4 MG/2 ML VIAL. IVP ONE (05:00)
[2019-11-17] MEDS ORDERED: fentaNYL PF VIAL 100 MCG/2 ML VIAL IVP ONE (05:00)
[2019-11-17] MEDS ORDERED: AMOX1TAB61 PO (05:50)
--- NOTE | 2019-11-17 05:50 | PHYS DOC ---
Past Medical History Past Medical History: Anxiety, Bipolar, Constipation, Depression, Diabetes-Type II, GERD, High Cholesterol, Hypertension, Hypothyroid, Stroke, Other Additional Past Medical Histor: CHRONIC BACK PAIN,PYSCH HX,ABN POSTURE,RIGO YNEUROPATHY Past Surgical History: Lumbar Laminectomy, Other Additional Past Surgical Histo: LEFT SHOULDER REPAIR,L hip repair-plate and screws,BACK Smoking Status: Never Smoker Alcohol Use: Rarely Drug Use: None General Adult EDM: Chief Complaint: CHEST PAIN HPI: HPI: Patient is a 79 year old female who presents with complaint of upper chest discomfort that she describes as sharp and stabbing in nature, stating that it is worse with deep breathing. She states that this is been present for the last few days and states that she has had a cough that has been nonproductive. She denies any fever. Patient denies any nausea, vomiting or diaphoresis. She states that she does get some mild shortness of breath with exertion. [] Review of Systems: Review of Systems: Constitutional: Denies fever or chills. [] Respiratory: Mild exertional shortness of breath. [] Cardiovascular: Complains of upper chest wall discomfort. [] GI: Denies abdominal pain, nausea, vomiting. [] Integument: Denies rash. [] Neurologic: Denies headache, focal weakness or sensory changes. [] A full 10 point review of systems has been reviewed and is otherwise negative. Heart Score: Risk Factors: Risk Factors: DM, Current or recent (<one month) smoker, HTN, HLP, family history of CAD, obesity. Risk Scores: Score 0 - 3: 2.5% MACE over next 6 weeks - Discharge Home Score 4 - 6: 20.3% MACE over next 6 weeks - Admit for Clinical Observation Score 7 - 10: 72.7% MACE over next 6 weeks - Early Invasive Strategies Current Medications: Current Medications Medications (Trade) Dose Ordered Sig/Anne Start Time Stop Time Status Last Admin Dose Admin Ceftriaxone Sodium (Rocephin) 1 gm 1X ONCE 11/17/19 05:45 11/17/19 05:46 UNV Fentanyl Citrate (Fentanyl 2ml Vial) 50 mcg 1X ONCE 11/17/19 05:00 11/17/19 05:01 DC 11/17/19 04:32 50 MCG Ondansetron HCl (Zofran) 4 mg 1X ONCE 11/17/19 05:00 11/17/19 05:01 DC 11/17/19 04:32 4 MG Sodium Chloride 1,000 ml @ 1,000 mls/hr Q1H 11/17/19 03:00 11/17/19 04:00 DC 11/17/19 04:14 1,000 MLS/HR Allergies: Allergies: Allergies Coded Allergies Type Severity Reaction Last Updated Verified I S O L A T I O N *CONTACT* Allergy Unknown 05/07/19 Yes No Known Medication Allergies Allergy Unknown 05/07/19 Yes Physical Exam: PE: Constitutional: Well developed, well nourished, no acute distress, non-toxic appearance. [] HENT: Normocephalic, atraumatic, bilateral external ears normal, oropharynx moist, no oral exudates, nose normal. [] Eyes: PERRLA, EOMI, conjunctiva normal, no discharge. [] Neck: Normal range of motion, no tenderness, supple, no stridor. [] Cardiovascular: Regular rate and rhythm [] Lungs & Thorax: Bilateral breath sounds clear to auscultation [] Abdomen: Bowel sounds normal, soft, no tenderness. [] Skin: Warm, dry, no erythema, no rash. [] Extremities: No tenderness, no cyanosis, no clubbing, ROM intact. [] Neurologic: Alert and oriented X 3, no focal deficits noted. [] Current Patient Data: Labs: Laboratory Tests Test 11/17/19 04:05 White Blood Count 11.9 x10^3/uL (4.0-11.0) H Red Blood Count 4.06 x10^6/uL (3.50-5.40) Hemoglobin 11.4 g/dL (12.0-15.5) L Hematocrit 36.1 % (36.0-47.0) Mean Corpuscular Volume 89 fL (79-100) Mean Corpuscular Hemoglobin 28 pg (25-35) Mean Corpuscular Hemoglobin Concent 32 g/dL (31-37) Red Cell Distribution Width 17.8 % (11.5-14.5) H Platelet Count 293 x10^3/uL (140-400) Neutrophils (%) (Auto) 71 % (31-73) Lymphocytes (%) (Auto) 17 % (24-48) L Monocytes (%) (Auto) 10 % (0-9) H Eosinophils (%) (Auto) 1 % (0-3) Basophils (%) (Auto) 1 % (0-3) Neutrophils # (Auto) 8.5 x10^3/uL (1.8-7.7) H Lymphocytes # (Auto) 2.0 x10^3/uL (1.0-4.8) Monocytes # (Auto) 1.2 x10^3/uL (0.0-1.1) H Eosinophils # (Auto) 0.2 x10^3/uL (0.0-0.7) Basophils # (Auto) 0.1 x10^3/uL (0.0-0.2) Sodium Level 142 mmol/L (136-145) Potassium Level 3.9 mmol/L (3.5-5.1) Chloride Level 108 mmol/L (98-107) H Carbon Dioxide Level 24 mmol/L (21-32) Anion Gap 10 (6-14) Blood Urea Nitrogen 19 mg/dL (7-20) Creatinine 0.8 mg/dL (0.6-1.0) Estimated GFR (Cockcroft-Gault) 69.4 BUN/Creatinine Ratio 24 (6-20) H Glucose Level 103 mg/dL (70-99) H Calcium Level 9.2 mg/dL (8.5-10.1) Magnesium Level 1.8 mg/dL (1.8-2.4) Total Bilirubin 0.2 mg/dL (0.2-1.0) Aspartate Amino Transferase (AST) 23 U/L (15-37) Alanine Aminotransferase (ALT) 10 U/L (14-59) L Alkaline Phosphatase 73 U/L (46-116) Troponin I Quantitative < 0.017 ng/mL (0.000-0.055) LQ-Tyo-W-Type Natriuretic Peptide 1007 pg/mL (0-449) H Total Protein 6.7 g/dL (6.4-8.2) Albumin 2.9 g/dL (3.4-5.0) L Albumin/Globulin Ratio 0.8 (1.0-1.7) L Laboratory Tests 11/17/19 04:05 Laboratory Tests 11/17/19 04:05 Vital Signs: Vital Signs Date Time Temp Pulse Resp B/P (MAP) Pulse Ox O2 Delivery O2 Flow Rate FiO2 6/23/20 04:41 70 20 167/67 (100) 99 Nasal Cannula 1.0 11/17/19 02:37 97.5 97.5 EKG: EKG: [] Radiology/Procedures: Radiology/Procedures: [] Course & Med Decision Making: Course & Med Decision Making Pertinent Labs and Imaging studies reviewed. (See chart for details) [] Dragon Disclaimer: Dragon Disclaimer: This electronic medical record was generated, in whole or in part, using a voice recognition dictation system. Departure Departure Impression: Primary Impression: Upper respiratory infection Qualified Codes: J06.9 - Acute upper respiratory infection, unspecified Additional Impression: Chest wall pain Disposition: HOME, SELF-CARE Condition: STABLE Referrals: WILLY DEE MD (PCP) Patient Instructions: Chest Wall Pain, Upper Respiratory Infection, Adult Scripts Amoxicillin/Potassium Clav (AUGMENTIN 875-125 TABLET) 1 Each Tablet 1 TAB PO BID for 10 Days, #20 TAB 0 Refills Prov: SAKINA KOVACS Jr. DO 11/17/19 Justicifation of Admission Dx: Justifications for Admission: Justification of Admission Dx: Comment: (Not applicable) SAKINA KOVACS Jr. DO Nov 17, 2019 05:50
[2019-11-17] MEDS ORDERED: cefTRIAXone IV Push 1 GM VIAL. IVP ONE (06:00)
--- NOTE | 2019-11-17 06:20 | EKG ---
[facility] [address] [place] [address] Test Date: 2019-11-17 Test Time: 02:46:51 Pat Name: JESSICA MULLER Department: Room: Gender: F Web Application Developer: : 1940 Requested By: SAKINA KOVACS Order Number: [id number] Reading MD: Measurements Intervals [place] Rate: 64 P: 90 CT: 150 QRS: 61 QRSD: 92 T: 64 QT: 428 QTc: 446 Interpretive Statements SINUS RHYTHM NORMAL ECG RI6.02 No previous ECG available for comparison
[2019-11-17 06:24] VITALS: BP 156/76
== END 2019-11-17 06:42 | disposition home or self-care (01) ==
LOC: ER 02:37
DX: J06.9 Acute upper respiratory infection, unspecified (principal); R07.1 Chest pain on breathing; I10 Essential (primary) hypertension; E11.42 Type 2 diabetes mellitus with diabetic polyneuropathy; F31.9 Bipolar disorder, unspecified; K21.9 Gastro-esophageal reflux disease without esophagitis; E78.00 Pure hypercholesterolemia, unspecified; E03.9 Hypothyroidism, unspecified; G89.29 Other chronic pain; Z86.73 Personal history of transient ischemic attack (TIA), and cerebral infarction without residual deficits; Z91.041 Radiographic dye allergy status
CPT/HCPCS: 36415; 71045; 80053; 83735; 83880; 84484; 85025; 93005; 96374; 96375; 99285; J0696; J2405; J3010; J7030